=== PATIENT | female | born 1945 | race Caucasian/White ===

== ENCOUNTER 2017-09-24 20:09 | Emergency (ER) | payer OTHER, MEDICARE, SELFPAY ==
[2017-09-24 20:46] VITALS: BP 175/101; PULSE 116; RESP 16; TEMP 36.8; O2SAT 97; BMI 24.3
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
--- NOTE | 2017-09-24 20:56 | XR_ITS ---
XR ribs RT min 3V w CXR1V HISTORY: Right lower rib pain ITS.REASON: pain ORDERING PHYSICIAN: Rodercik Wiley MD PATIENT AGE: 72 years COMPARISON: None FINDINGS: A frontal view of the chest shows no acute finding. There is a nodular opacity overlying the right lung base at 5 mm and consistent with a granuloma. Granuloma present in the left apex Multiple views of the right ribs were obtained. No fracture or dislocation. No lytic or blastic change. Moderate upper lumbar scoliosis convex left IMPRESSION: Negative RIBS. If pain persists, consider follow-up exam in 7-[address] with 3-D reformats.
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
[2017-09-24 23:30] VITALS: BP 163/91; PULSE 101; RESP 16; TEMP 37.2; O2SAT 97
== END 2017-09-24 23:33 | disposition home or self-care (01) ==
PROVIDERS: Emergency Provider Emergency Medicine; Family Provider Internal Medicine; PCP Internal Medicine
DX: S20.211A Contusion of right front wall of thorax, initial encounter (principal); V58.1XXA Passenger in pick-up truck or van injured in noncollision transport accident in nontraffic accident, initial encounter; Y92.414 Local residential or business street as the place of occurrence of the external cause; I25.10 Atherosclerotic heart disease of native coronary artery without angina pectoris; E11.9 Type 2 diabetes mellitus without complications
CPT/HCPCS: 71101; 74176; 99281

== ENCOUNTER → 2017-10-20 15:48 | Outpatient (CLI) | payer MEDICARE, SELFPAY | PROVIDERS: PCP Internal Medicine; Visit Provider Internal Medicine | DX: E11.42 Type 2 diabetes mellitus with diabetic polyneuropathy (principal); I10 Essential (primary) hypertension | CPT/HCPCS: 93005 ==

== ENCOUNTER → 2017-11-08 06:42 | Outpatient (CLI) | payer MEDICARE, SELFPAY ==
--- NOTE | 2017-11-08 06:44 | NM_ITS ---
History and Indications: Coronary artery disease, hypertension, diabetes, hyperlipidemia and family history. Procedure: Patient exercised Earnest protocol 5 mins and 45 seconds, resting heart rate was 85 bpm resting blood pressure of 168/70, with exercise maximum heart rate achieved was 1 58 bpm which is equal to 85% of the maximum predicted heart rate and a blood pressure was 200/80. Test was started due to shortness of breath, patient denied any complained of chest pain. The patient has adequate exercise capacity achieved 7mets of workload on treadmill, the blood pressure response to exercise was adequate. Electrocardiogram: Resting electrocardiogram showed sinus rhythm, with exercise there is [address] segment depression noted from the baseline EKG. The EKG portion of the exercise Myoview is positive for ischemia. Cardiac stress and resting SPECT images: Cardiac stress and rest SPECT images were obtained using technetium 99 Myoview 10.3 mCi at rest and 31.9 mCi at stress, gated SPECT further analysis of segmental wall motion and calculation of the ejection fraction also done. Cardiac stress and rest images show decreased tracer activity in the anterolateral wall which improves on the resting images is suggestive of reversible ischemia, computer derived ejection fraction is over 65% with mild anterolateral wall hypokinesis. Right ventricle is normal size and contractility. Conclusion: 1. The EKG portion of the exercise Myoview is positive for ischemia, patient has adequate exercise capacity achieved 7mets of workload on treadmill, the blood pressure response to exercise was adequate, there was no exercise-induced chest discomfort, test was started shortness of breath. 2. Scintigraphic evidence of reversible ischemia involving the anterolateral wall, either derived ejection fraction is over 65% with segmental wall motion abnormality described above, right ventricle is normal size and contractility. 3. Abnormal exercise Myoview study.
--- NOTE | 2017-11-08 07:51 | HMH.ITSHM ---
PRAVASTATIN METFORMIN LISINOPRIL AMLODIPINE GLIMEPIRIDE
--- NOTE | 2017-11-08 08:34 | CA_ITS ---
PROCEDURE: 2-D M-mode and color Doppler study INDICATIONS FOR THE TEST: Chest pain COPD Heart Murmur Tobacco Smoking Palpitations Fatigue Syncope Edema Hypertension+Diabetes Mellitus+ Rheumatic Fever SOB JOSÉ Obesity Hyperlipidemia Family History HD Additional History PATIENT INFORMATION HEIGHT: 62 WEIGHT:130 GENDER: Female B/P:163/69 2-D/M-MODE INTERPRETATION: 2-D MEASUREMENTS OBSERVED VALUES IN CMS Right Ventricular Dimension (RVDd) 2.1 Interventricular Septum (Thickness)(IVsd) 1.4 Left Ventricular Internal Dimensions(LVIDd) 3.5 Left Ventricular Posterior Wall (Thickness)(LVPWd) 1.3 Aortic Root 2.9 Aortic Cusp Separation 1.8 Left Atrial Dimensions (LAD) 3.7 2D 1. Left atrium is mildly enlarged, left ventricle is normal size, there is mild concentric left ventricular hypertrophy, visually estimated ejection fraction 55% with no obvious regional wall motion abnormality. 2. The right atrium is mildly enlarged, right ventricle is normal size and contractility. 3. The aortic valve is minimally thickened and fibrosed. 4. The mitral and tricuspid valve leaflets are minimally thickened. 5. The pulmonic valve is poorly visualized. 6. No significant pericardial effusion noted. DOPPLER INTERROGATION: Doppler interrogation of the aortic, mitral and tricuspid valvular presence of mild mitral and tricuspid regurgitation, tricuspid and jet velocity insufficient for acquisition of the right ventricular systolic pressure, grade 1 diastolic dysfunction seen with tissue Doppler evidence of raised left atrial pressure. CONCLUSION: 1. Mild biatrial enlargement. Normal left ventricular size, mild concentric left ventricular hypertrophy, visually estimated ejection fraction 55% no obvious regional wall motion abnormality. Grade 1 diastolic dysfunction seen with tissue Doppler evidence of raised left atrial pressure. 2. Mild mitral and tricuspid regurgitation 3. No significant pericardial effusion noted.
== END ==
PROVIDERS: Family Provider Internal Medicine; PCP Internal Medicine; Visit Provider Internal Medicine
DX: I25.10 Atherosclerotic heart disease of native coronary artery without angina pectoris (principal)
CPT/HCPCS: 78452; 93017; 93306; A9502

== ENCOUNTER 2018-01-02 09:41 | Outpatient (RCR) | payer MEDICARE, SELFPAY | END 2018-03-20 09:35 | disposition home or self-care (01) | LOC: PT 09:41 | PROVIDERS: Visit Provider Thoracic Surgery (Cardiothoracic Vascular Surgery) | DX: I25.810 Atherosclerosis of coronary artery bypass graft(s) without angina pectoris (principal) | CPT/HCPCS: 93798 ==

== ENCOUNTER → 2018-05-07 09:46 | Outpatient (CLI) | payer MEDICARE, SELFPAY ==
--- NOTE | 2018-05-07 09:54 | XR_ITS ---
EXAM: XR cervical spine 5V HISTORY: ITS.REASON: RT NECK PAIN RADIATING TO RT SHOULDER ORDERING PHYSICIAN: Jhonatan Wolfe PATIENT AGE: 72 years COMPARISON: None FINDINGS: There is moderate degenerative disc disease at C4-C5 and C5-C6 with small endplate osteophytes. There is 3 mm anterolisthesis of C3 on C4. Foraminal narrowing is present on the right at the C4-C5 and C5-C6. Facet hypertrophic changes are noted from C3 to C6. Carotid artery calcifications are also noted. No fracture or dislocation. No lytic or blastic change. IMPRESSION: 1. Degenerative disc disease C4-C5 and C5-C6 with foraminal narrowing on the right at these levels with mild anterolisthesis of C3 of 3 mm 2. Carotid artery disease
== END ==
PROVIDERS: PCP Internal Medicine; Visit Provider Internal Medicine
DX: M54.2 Cervicalgia (principal); M25.511 Pain in right shoulder
CPT/HCPCS: 72050

== ENCOUNTER 2019-09-14 13:00 | Observation (INO) ==
--- NOTE | 2019-09-14 13:13 | Emergency Department Note ---
ED Disposition Clinical Impression: Foot pain, right Multiple closed fractures of right foot Qualifiers: Encounter type: initial encounter Qualified Code(s): S92.901A - Unspecified fracture of right foot, initial encounter for closed fracture Ankle pain, right Qualifiers: Chronicity: acute Qualified Code(s): M25.571 - Pain in right ankle and joints of right foot Disposition: Admitted as Observation Condition on Discharge: Fair (Stable) Referrals: Jhonatan Wolfe [Primary Care Provider] - Opal Craig MD [Physician] - Jus Jean MD [Staff Physician] - Time of Disposition: 13:23 - Critical Care Critical Care Time: No Attestation: On , the high probability of a clinically significant, sudden or life threatening deterioration of the following system(s) required my full and direct attention, intervention and personal management. The time I documented below is in addition to time spent performing reported procedures but includes the following listed in this critical care notation. Medical Decision Making - Medical Records Medical records reviewed: Yes: I reviewed the patient's medical records. - Joo Inquiry Pt receiving controlled substance: No Joo was queried for this patient: No Vital Signs: 09/14/19 13:01 Pulse Rate [Radial] 89 Respiratory Rate 18 Blood Pressure [Right Arm] 198/81 H Blood Pressure Mean [Right Arm] 120 Blood Pressure Source [Right Arm] Automatic Cuff Blood Pressure Position [Right Arm] Sitting 02 Sat by Pulse Oximetry 94 L Oxygen Delivery Method Room Air Orders (Tests/Meds): ORDERS Category Date Time Status CT foot RT wo con Stat Cat Scan 09/14/19 13:13 Ordered Complete Blood Count Auto Diff Stat Lab 09/14/19 13:30 Received Comprehensive Metabolic Panel Stat Lab 09/14/19 13:30 Received Medical Decision Narrative: 13:17 evaluated this patient. Case also discussed with orthopedist who is here in the ER seeing the patient at this time. CT scan of the right foot ordered and pending. 13:20 Dr. Craig evaluated the patient and she is going to be taking her to the operating room. Patient and are aware. I have also had Dr. Jean paged to his taking call for Dr. Wolfe regarding admission of this patient. Extremity Problem HPI - General Stated complaint: [id number] right foot pain Time Seen by Provider: 09/14/19 13:07 Mode of Arrival: Wheelchair Source of Information: Patient, Spouse Limitations: No Limitations - History of Present Illness HPI Narrative: Patient is here in the emergency room for evaluation request of orthopedist Dr. Craig. Patient was here at the hospital yesterday and was walking down some stairs. She missed the last step and fell injuring her right foot. Patient was subsequently cared for in the [facility]. Patient was put into a walking boot and discharged. She was scheduled to follow-up with healthcare science specialist Dr. Lockhart on Monday. Orthopedics reviewed her x-ray and contacted the patient this morning and of asked her to present here to the ER for CT the foot and consultation regarding possible surgery today. Patient has no other complaints other than right foot pain. - Related Data Home Medications Medication Instructions Recorded Confirmed Glimepiride 4 mg PO BID 09/24/17 08/06/19 aspirin 81 mg tablet,delayed 81 mg PO DAILY tab 01/30/18 08/06/19 release atorvastatin 80 mg tablet 80 mg PO DAILY tab 01/30/18 08/06/19 insulin glargine 100 unit/mL (3 20 unit SQ HS ml 08/07/18 08/06/19 mL) subcutaneous pen metoprolol tartrate 25 mg tablet 25 mg PO BID 08/07/18 08/06/19 Allergies Allergy/AdvReac Type Severity Reaction Status Date / Time No Known Allergies Allergy Verified 08/06/19 09:50 [facility] History - Hepatitis A Screen Drug use history?: No Attestation statement:: This patient has been screened for Hepatitis A risk factors. I have reviewed the patient's past medical history: Yes Medical History: Reports:: Diabetes Mellitus Type 2, Hyperlipidemia, Hypertension Denies:: Cancer, Diabetes Mellitus Type 1, Internal Pacemaker, MRSA, Seizures Other Surgeries: Yes: CABG (11/2017), Cardiac Surgery, Hysterectomy-Partial. No: Pacemaker Amputation: No Fractures: Yes (left foot) - Social History Smoking Status: Never smoker Alcohol Intake: never Alcohol Intake Frequency:: holidays/special occasions only Substance Use Type: denies use Occupational Status: retired Housing: house Household Members: spouse Family Hx:: Cancer, Coronary Artery Disease, Heart Attack Comment: Father- of MS at age 64. Brother- of MS at age 64 ROS Obtained: Yes All systems reviewed & no additional complaints - Constitutional Constitutional: Reports system reviewed and no additional complaints, except as docu - Eyes Eyes: Reports system reviewed and no additional complaints, except as docu - ENT Ears, Nose, Mouth, and Throat: Reports system reviewed and no additional complaints, except as docu - Cardiovascular Cardiovascular: Reports system reviewed and no additional complaints, except as docu - Respiratory Respiratory: Yes system reviewed and no additional complaints, except as docu - Gastrointestinal Gastrointestingal: Reports: system reviewed and no additional complaints, except as docu - Genitourinary Female Genitourinary: Reports system reviewed and no additional complaints, except as docu - Musculoskeletal Musculoskeletal: Reports system reviewed and no additional complaints, except as docu, Reports as per HPI, Reports other (Right foot pain and swelling post injury yesterday) - Integumentary/Breasts Skin/Breast: Reports system reviewed and no additional complaints, except as docu, Reports as per HPI, Reports other (Bruising and swelling to the right foot and ankle.) - Neurologic Neurologic: Reports system reviewed and no additional complaints, except as docu - Endocrine Endocrine: Reports system reviewed and no additional complaints, except as docu - Hematologic/Lymphatic Henatologic/Lymphatic: Reports system reviewed and no additional complaints, except as docu - Allergic/Immunologic Allergic/Immunologic: Reports system reviewed and no additional complaints, except as docu Physical Exam - General General appearance: alert, in no apparent distress - Head Head exam: atraumatic, normocephalic, normal inspection - Eye Eye exam: Present: normal appearance, PERRL, EOMI - ENT ENT exam: Present: mucous membranes moist - Neck Neck exam: Present: trachea midline - Chest Chest inspection: Present: normal inspection, symmetric chest wall rise - Respiratory Respiratory exam: Present: normal lung sounds bilaterally. Absent: respiratory distress - Cardiovascular Cardiovascular exam: Present: regular rate, normal heart sounds - Abdominal Exam Abdominal exam: Present: soft, normal bowel sounds. Absent: distention, tenderness, guarding, rebound - Extremities Exam Extremities exam: Present: other (Patient is noted to have a moderate swelling to the right ankle and foot with diffuse ecchymosis to the right foot dorsally. Patient has noted the pain on palpation of the distal aspect of the bilateral malleolar line. She also has pain over the proximal dorsal aspect of her foot along her navicular and cuneiform areas. She also has pain on palpation of the posterior heel calcaneus area. No sensation loss noted at right foot or digits. +1 right dorsalis pedis pulse.) - Back Exam Back exam: Present: normal inspection - Neurological Exam Neurological exam: Present: alert, oriented X3, CN II-XII intact - Psychiatric Psychiatric exam: Present: normal affect, normal mood - Skin Skin exam: Present: warm, dry, other ((+) blistering to posterior right heel)
[2019-09-14 13:41] LABS: Basophils % 0.3 % (0.1-2.0); Eosinophils # 0.1 K/mm3 (0.0-0.4); Hematocrit 42.9 % (37.0-47.0); Hemoglobin 14.5 g/dL (12.2-16.2); Lymphocytes % 16.5 % (10-50); Mean Corpuscular HGB Conc 33.9 g/dL (31.8-35.4); Mean Corpuscular Volume 86.5 fl (81-99); Mean Platelet Volume 7.9 fl (7.4-10.4); Monocytes # 0.6 K/mm3 (0.1-1.0); Monocytes % 4.8 % (1.7-9.3); Neutrophils # 9.2 K/mm3 (1.8-7.8); Neutrophils % 77.4 % (37.0-80.0); Platelet Count 224 K/mm3 (142-424); Red Blood Count 4.96 M/mm3 (4.20-5.40); Red Cell Distribution Width 14.4 % (11.5-17.5); White Blood Count 11.9 K/mm3 (4.8-10.8)
[2019-09-14 13:56] LABS: Albumin Level 4.1 gm/dL (3.4-5.0); Albumin/Globulin Ratio 1.2 (1.1-1.8); Anion Gap 18.8 mEq/L (5-15); Bilirubin,Total 0.8 mg/dL (0.2-1.0); Calcium 9.2 mg/dL (8.5-10.1); Globulin 3.4 gm/dl (1.3-3.2); Total Protein,Serum 7.5 gm/dL (6.4-8.2)
[2019-09-14 14:07] LABS: INR 1.01 (0.9-1.1); Prothrombin Time 10.5 seconds (9.4-11.8)
--- NOTE | 2019-09-14 14:27 | Consult Report ---
*Admission Date: 09/14/19 *Reason for consult:: R calcaneus fx *History of present illness: 74yo F with R calcaneus fracture. She was leaving [facility] yesterday and missed a step; she fell and injured the R ankle. She was seen in the [facility] where XR were performed, showing a comminuted, displaced calcaneus fracture. Neither orthopedic or podiatry were called. She was placed into a CAM boot, discharged home and given instructions to follow-up with Dr. Noriega. The patient called Dr. Noriega's office, and the office staff contacted Dr. Noriega, who received the message this morning. After review of the XR, Dr. Noriega spoke with me regarding concern this could turn into an open fracture. The proximal fracture fragment was displaced with very little soft tissue covering it; the swelling and internal pressure from the fracture fragment can often lead to rapid skin necrosis and convert the injury to an open fracture. This is typically treated surgically in an urgent fashion, so I called the patient at home and asked her to return to the ER today for evaluation. She reports discomfort in the heel in the boot, so she has been removing this at home to elevate the foot. She denies numbness in the foot. History is significant for HTN, HL, DM, CAD s/p CABG. Denies h/o Afib. She is unsure of the exact value, but believes her last A1C was around 8; this is down from >14 last year. No anticoagulant use. She ate toast around 8am this morning and diet soda around 11:15am. Review of Systems - Review of Systems Review of systems:: pertinent systems reviewed and negative unless documented below [facility] History I have reviewed the patient's past medical history: Yes Medical History: Reports:: Diabetes Mellitus Type 2, Hyperlipidemia, Hypertension Denies:: Cancer, Diabetes Mellitus Type 1, Internal Pacemaker, MRSA, Seizures *Have you ever received a pneumonia vaccine?: Yes *Have you received a flu vaccine this season?: Yes Other Surgeries: Yes: CABG (11/2017), Cardiac Surgery, Hysterectomy-Partial. No: Pacemaker Amputation: No Fractures: Yes (left foot) - *Social History Educational Level: Completed High School Smoking Status: Never smoker Alcohol Intake: never Alcohol Intake Frequency:: holidays/special occasions only Substance Use Type: denies use *Occupational Status:: retired Housing: house Household Members: spouse *Travel in the last 8 weeks: None Family Hx:: Cancer, Coronary Artery Disease, Heart Attack Meds Home Medications Medication Instructions Recorded Confirmed Type Glimepiride 4 mg PO BID 09/24/17 08/06/19 History aspirin 81 mg tablet,delayed 81 mg PO DAILY tab 01/30/18 08/06/19 History release atorvastatin 80 mg tablet 80 mg PO DAILY tab 01/30/18 08/06/19 History insulin glargine 100 unit/mL (3 20 unit SQ HS ml 08/07/18 08/06/19 History mL) subcutaneous pen metoprolol tartrate 25 mg tablet 25 mg PO BID 08/07/18 08/06/19 History Allergies Allergy/AdvReac Type Severity Reaction Status Date / Time No Known Allergies Allergy Verified 08/06/19 09:50 Exam Vital signs and Labs for Last 24 Hours: Pulse Resp BP Pulse Ox 89 18 198/81 H 94 L 09/14/19 13:01 09/14/19 13:01 09/14/19 13:01 09/14/19 13:01 Laboratory Results - last 24 hr 09/14/19 13:30: WBC 11.9 H, RBC 4.96, Hgb 14.5, Hct 42.9, MCV 86.5, MCH 29.3, MCHC 33.9, RDW 14.4, Plt Count 224, MPV 7.9, Neut % (Auto) 77.4, Lymph % (Auto) 16.5, [place] % (Auto) 4.8, Eos % (Auto) 1.0, Baso % (Auto) 0.3, Neut # (Auto) 9.2 H, Lymph # (Auto) 2.0, [place] # (Auto) 0.6, Eos # (Auto) 0.1, Baso # (Auto) 0.0 09/14/19 13:30: Sodium 139, Potassium 3.8, Chloride 101, Carbon Dioxide 23, Anion Gap 18.8 H, BUN 16, Creatinine 1.13 H, Estimated Creat Clear 46, Estimated GFR 47 L, Est GFR ( Amer) 57 L, Glucose 168 H, Calcium 9.2, Total Bilirubin 0.8, AST 17, ALT 27, Alkaline Phosphatase 78, Total Protein 7.5, Albumin 4.1, Globulin 3.4 H, Albumin/Globulin Ratio 1.2 09/14/19 13:30: PT 10.5, INR 1.01 I & O for Last 24 hours: Intake & Output 09/12/19 09/13/19 09/14/19 09/15/19 11:59 11:59 11:59 11:59 Weight 143 lb - Constitutional no acute distress - *Routine HEENT Exam Head: Present: normocephalic Eye: Present: EOMI ENT: Present: mucous membranes moist - *Routine Respiratory Exam Absent: accessory muscle use, respiratory distress, wheezes - *Routine Extremities Exam Comments: R foot with moderate/severe soft tissue swelling and diffuse ecchymosis around all aspect of the foot/heel increased ecchymosis with small blister over posterior R heel at fracture site R foot/heel diffusely tender to touch SILT distally RLE in all distributions palpable pedal pulses RLE, though faint through swelling no open wounds or exposed bone R wheel truing machine tender over R midfoot wiggles toes, EHL intact RLE, DF/PF difficult due to pain R calf soft, non-tender - *Routine Skin Exam Present: intact, ecchymosis - *Routine Neurological Exam Present: alert, oriented X3, moving all extremities, normal tone, hearing grossly intact, normal speech. Absent: sensory deficit, motor deficit, altered mental status Results - Labs Result Diagrams: 09/14/19 13:30 09/14/19 13:30 Labs: Abnormal lab results 09/14/19 09/14/19 Range/Units 13:30 13:30 WBC 11.9 H (4.8-10.8) K/mm3 Neut # (Auto) 9.2 H (1.8-7.8) K/mm3 Anion Gap 18.8 H (5-15) mEq/L Creatinine 1.13 H (0.55-1.02) mg/dL Estimated GFR 47 L (>60) ml/min Est GFR ( Amer) 57 L (>60) ML/MIN Glucose 168 H (74-106) mg/dL Globulin 3.4 H (1.3-3.2) gm/dl H & H 09/14/19 Range/Units 13:30 Hgb 14.5 (12.2-16.2) g/dL Hct 42.9 (37.0-47.0) % Coagulation 09/14/19 Range/Units 13:30 INR 1.01 (0.9-1.1) All other labs normal. - Diagnostic results Ankle/Foot x-ray: image reviewed (comminuted, displaced fracture of R calcaneus with proximal fragment possibly tenting skin; possible 1st MT base, navicular, cuboid fractures as well ) Assessment and Plan (1) Diabetes Current visit: Yes Status: Acute Category: Medical Code(s): E11.9 - Type 2 diabetes mellitus without complications (2) Multiple closed fractures of right foot Current visit: Yes Status: Acute Qualifiers: Encounter type: initial encounter Qualified Code(s): S92.901A - Unspecified fracture of right foot, initial encounter for closed fracture Category: Medical Code(s): S92.901A - Unspecified fracture of right foot, initial encounter for closed fracture (3) Right calcaneal fracture Current visit: No Status: Acute Qualifiers: Encounter type: initial encounter Calcaneus location: unspecified portion of calcaneus Fracture type: closed Fracture alignment: displaced Qualified Code(s): S92.001A - Unspecified fracture of right calcaneus, initial encounter for closed fracture Category: Medical Code(s): S92.001A - Unspecified fracture of right calcaneus, initial encounter for closed fracture (4) CAD (coronary artery disease) Current visit: No Status: Chronic Qualifiers: Coronary Disease-Associated Artery/Lesion type: bypass graft [place] vs. transplanted heart: nond[place] heart Associated angina: without angina Qualified Code(s): I25.810 - Atherosclerosis of coronary artery bypass graft(s) without angina pectoris Category: Medical Code(s): I25.10 - Atherosclerotic heart disease of nond[place] coronary artery without angina pectoris (5) S/P CABG (coronary artery bypass graft) Current visit: No Status: Chronic Category: Surgical Code(s): Z95.1 - Presence of aortocoronary bypass graft - Assessment and plan all Dx Assessment and Plan for all problems:: 74yo F with comminuted, displaced fracture of R calcaneus, impending open fracture; also with suspected fractures of 1st MT, navicular and cuboid -- to OR today for closed reduction, possible percutaneous pinning + external fixator application R calcaneus fracture -- NPO -- stat labs, EKG -- NWB RLE; well-padded splint applied -- I discussed risks of the procedure with the patient, as well as the expected post-operative course and plan for definitive fixation; the patient vocalized understanding and provided informed consent for the procedure
--- NOTE | 2019-09-14 16:48 | Progress Note ---
[facility] Anesthesia Checklist - Patient Identification Patient Identification: Arm Band, Verbal (Name & ) - Structural Data Admitted From: Emergency Dept Planned Operative Procedure/s: right calcaneus closed reduction, external fixator, perc pinning Consent for Planned Operative Procedure(s) Verified: Yes Verified Documents: Surgical Consent, History and Physical - NPO Status Verified Time NPO: 08:00 (0800 Solids, 1130 soda pop) - Chart Verification Results Verified: CBC, BMP, PT, PTT, INR, ECG - Additional verifications Anesthesia Reactions: No - Airway Assessment C-Spine Mobility Assessed: Yes TMJ Mobility Assessed: Yes Dentition: Edentulous (dentures removed) - Neurological Assessment Level of Consciousness: Awake, Alert, Appropriate, Follows Commands Hx Seizures: No Numbness or tingling in extremities: Yes - Anesthesia Plan Anesthesia Risk discussed: Yes Anesthesia Plan: Verified ASA Class: III (emergent) Anesthesia Type: MAC w/Block [facility] History I have reviewed the patient's past medical history: Yes Medical History: Reports:: Arrhythmia, Atrial Fibrillation (Newly diagnosed), Coronary Artery Disease, Diabetes Mellitus Type 2 (uncontrolled), Hyperlipidemia, Hypertension Denies:: Cancer, Diabetes Mellitus Type 1, Internal Pacemaker, MRSA, Seizures *Have you ever received a pneumonia vaccine?: Yes *Have you received a flu vaccine this season?: Yes Anesthesia experience/problems:: no prior complications Other Surgeries: Yes: CABG (11/2017, 3 vessel bypass), Cardiac Surgery, Hysterectomy-Partial. No: Pacemaker Amputation: No Fractures: Yes (left foot) - *Social History Educational Level: Completed High School Smoking Status: Never smoker Alcohol Intake: never Alcohol Intake Frequency:: holidays/special occasions only Substance Use Type: denies use *Occupational Status:: retired Housing: house Household Members: spouse *Travel in the last 8 weeks: None Family Hx:: Cancer, Coronary Artery Disease, Heart Attack
--- NOTE | 2019-09-14 17:51 | Progress Note ---
[facility] Anesthesia Record Part I Intake, IV Amount: 400 Estimated blood loss (mL): 5 Urine output (mL): 0 (NM) Blood Products used (#): none Blood Pressure: 118/54 SaO2: 92 Pulse Rate: 82 Respiratory Rate: 16 Temperature: 97.8 F Patient is:: Drowsy, Nasal O2, Stable Stable to PACU at:: 17:45
--- NOTE | 2019-09-14 18:25 | Operative Note ---
Date of procedure: 09/14/19 Pre-op Diagnosis:: right calcaneus fracture, impending open; severe soft tissue swelling Post-op Diagnosis:: same Procedure performed:: 1) closed reduction, percutaneous pinning right calcaneus fracture 2) application of external fixator RLE Surgeon:: MD Eneida Lewis DPM Marketing Development Manager(s):: Sara Wilburn YARN WASHER:: Mj Mathis Anesthesia: MAC, regional Estimated blood loss (mL): 5 Clinical Note:: 74yo F with R calcaneus fracture. She was leaving [facility] yesterday and missed a step; she fell and injured the R ankle. She was seen in the [facility] where XR were performed, showing a comminuted, displaced calcaneus fracture. Neither orthopedic or podiatry were called. She was placed into a CAM boot, discharged home and given instructions to follow-up with Dr. Noriega. The patient called Dr. Noriega's office, and the office staff contacted Dr. Noriega, who received the message this morning. After review of the XR, Dr. Noriega spoke with me regarding concern this could turn into an open fracture. The proximal fracture fragment was displaced with very little soft tissue covering it; the swelling and internal pressure from the fracture fragment can often lead to rapid skin necrosis and convert the injury to an open fracture. This is typically treated surgically in an urgent fashion, so I called the patient at home and asked her to return to the ER today for evaluation. She reports discomfort in the heel in the boot, so she has been removing this at home to elevate the foot. She denies numbness in the foot. History is significant for HTN, HL, DM, CAD s/p CABG. Denies h/o Afib. She is unsure of the exact value, but believes her last A1C was around 8; this is down from >14 last year. No anticoagulant use. She ate toast around 8am this morning and diet soda around 11:15am. I discussed the significance of this injury with the patient and need for urgent reduction & stabilization; my plan was for closed reduction of the calcaneus, possible percutaneous pinning with external fixator application. I discussed risks of the procedure with the patient, as well as the expected post- operative course and plan for definitive fixation; the patient vocalized understanding and provided informed consent for the procedure Operative findings:: tongue-type calcaneus fracture with intra-articular extension and commminution; osteopenia severe soft tissue swelling with ecchymosis, blistering over posterior heel - impending open fracture [place] Barnes 2 ex-fix system was used, with the following components: pins: tibia = 5 x 180mm apex pins (2) calcaneus = 5 x 250mm transfix pin (1) bars: 8 x 500mm (2) from tibia to calcaneus Operative note:: The patient was identified in preoperative holding and the right leg signed by myself. I reviewed the consent with the patient and her family and answered all questions. Regional nerve block was administered by anesthesia. She was then taken to the operating room and placed supine on the OR table. 1 g of Ancef were infused intravenously and IV sedation given. Once the patient was sedated, the splint was removed from her right ankle and the right leg prepped and draped in the usual sterile fashion from the upper thigh to the toes. Timeout was performed, identifying the correct patient, correct procedure, and correct site. The procedure was begun by using the C arm to identify the fracture site at the right calcaneus. Tongue type fracture with intraarticular extension and comminution was confirmed. A Arabella Barnes 2 external fixator system was used for this case. The first pin placed was a calcaneus pin, which was a 5 x 250 mm transfix pin, which was centrally threaded. This was held over the skin over the lateral calcaneus until the desired starting point was found, at which time the pin was used to andino the skin and placed under power through the center of the calcaneus. This was passed through the distal (i.e. inferior) fracture fragment. This pin was used to control the distal fragment as closed reduction was performed. A 0.062-in K-wire was placed percutaneously into the proximal fragment, and used to joystick the fragment; this was insufficient to adequately reduce the fracture. A pointed reduction forcep was used percutaneously with one jon on the tuberosity and the other on the inferior calcaneus; this was used to reduce the fracture, thereby relieving the pressure on the skin of the posterior heel. With the fracture held by the clamp, the k-wire was advanced into the distal fragment, securing the reduction. For added stability to hold the reduction, a second k-wire was passed in a similar fashion, pinning the fracture fragments provisionally. The reduction forceps were removed and the fracture held nicely. Next 2 pins were placed in the proximal tibia, each measuring 5 x 180 mm. These were distally threaded apex pins and were placed around 3 to 4 cm apart in the proximal tibia, well distal to the tubercle and far below the capsule so as not to be placed intra-articularly. These were placed under power, also under direct visualization with C arm, and were started just medial to the tibial crest over the anterior tibia. They were placed bicortically. Once both tibial pins had been placed, bars were placed on the frame using pin-to-bar and bar-to-bar clamps. Radiolucent bars were placed, both measuring 8 x 500 mm from the tibia to the calcaneus both medially and laterally. No further reduction of the fracture was necessary so all clamps were tightened with a wrench and final x-rays taken. The pin sites were all dressed with sterile Xeroform, 4 x 4's and the entire construct wrapped with Kerlix, webril and Ian wraps. The patient was then awoken and transferred to her cart, where she was taken to PACU in good condition. No tourniquet was used during this case and blood loss was minimal, less than 5 cc. The patient tolerated this procedure well with no immediate perioperative complications. Tourniquet time (min): 0 Condition: stable Disposition: PACU Specimens:: none Complications:: none
--- NOTE | 2019-09-14 18:54 | History & Physical Report ---
*Admission Date: 09/14/19 *Chief complaint: Fall on 09/13/2019 with calcaneus fracture *History of present illness: Patient suffered a fall on 09/13/2019 after missing a step going out of the pharmacy on the ground floor of this building. She was taken to the urgent treatment center where x-rays demonstrated fracture and she was placed in a walking boot. However once podiatry services had reviewed her fracture they determined this was at high risk for conversion to an open fracture and orthopedics and podiatry were able to get a hold of the patient and bring her back into the ER today where she was admitted for operative repair of the fracture. Please see orthopedic notes for details. On presentation to the ER patient was noted to be in rate controlled atrial fibrillation with normal blood pressure. She cannot recall any heart irregularity, denies palpitations, chest pain, syncope or recent edema or dyspnea. There is no record of patient ever having atrial fibrillation. Most recent EKG in July of this year showed normal sinus rhythm. Patient has a history of coronary disease, status post three-vessel CABG at [facility] in the early part of 2017. Has been followed with cardiology services at [facility] since that time. Has a history of diabetes, has been on insulin now for about a year and a half. Has been on a variety of oral medications through her doctor in [facility] with samples being provided apparently because of cost reasons. She is currently on glimepiride, and Lantus insulin. She is intolerant to metformin because of GI effects. She recalls being on Januvia in the past but denies ever being on any of the SGLT2 inhibitors. [facility] History I have reviewed the patient's past medical history: Yes Medical History: Reports:: Arrhythmia, Atrial Fibrillation (Newly diagnosed this admission), Coronary Artery Disease, Diabetes Mellitus Type 2 (uncontrolled), Hyperlipidemia, Hypertension Denies:: Cancer, Diabetes Mellitus Type 1, Internal Pacemaker, MRSA, Seizures *Have you ever received a pneumonia vaccine?: Yes *Have you received a flu vaccine this season?: Yes Anesthesia experience/problems:: no prior complications Other Surgeries: Yes: CABG (11/2017, 3 vessel bypass), Cardiac Surgery, Hysterectomy-Partial. No: Pacemaker Amputation: No Fractures: Yes (left foot) - *Social History Educational Level: Completed High School Smoking Status: Never smoker Alcohol Intake: never Alcohol Intake Frequency:: holidays/special occasions only Substance Use Type: denies use *Occupational Status:: retired Housing: house Household Members: spouse *Travel in the last 8 weeks: None Family Hx:: Cancer, Coronary Artery Disease, Heart Attack Review of Systems - Review of Systems Review of systems:: pertinent systems reviewed and negative unless documented below - Constitutional Denies anorexia, Denies excessive sweating, Denies fatigue, Denies lack of energy - Eyes Denies blind spots, Denies discharge, Denies dry eyes - ENT Denies abnormal hearing, Denies poor balance, Denies dizziness - *Cardiovascular Denies chest pain, Denies chest pain with activity, Denies leg pain with activity, Denies excessive sweating, Denies shortness of breath, Denies irregular heart rhythm - *Respiratory Denies change in phlegm color, Denies shortness of breath, Denies shortness of breath with activity - *Gastrointestinal Denies abdominal pain, Denies change in stools, Denies coffee ground vomit, Denies constipation - *Genitourinary Denies abnormal vaginal bleeding - *Musculoskeletal Reports joint pain, Denies abnormal walking - Integumentary/Breasts Denies acne, Denies change in skin color Meds Home Medications Medication Instructions Recorded Confirmed Type Glimepiride 4 mg PO BID 09/24/17 09/14/19 History aspirin 81 mg tablet,delayed 81 mg PO DAILY tab 01/30/18 09/14/19 History release atorvastatin 80 mg tablet 80 mg PO DAILY tab 01/30/18 09/14/19 History insulin glargine 100 unit/mL (3 20 unit SQ HS ml 08/07/18 09/14/19 History mL) subcutaneous pen metoprolol tartrate 25 mg tablet 25 mg PO BID 08/07/18 09/14/19 History Allergies Allergy/AdvReac Type Severity Reaction Status Date / Time No Known Allergies Allergy Verified 08/06/19 09:50 Exam Vital signs and Labs for Last 24 Hours: Temp Pulse Resp BP Pulse Ox 98.0 F 90 16 140/70 94 L 09/14/19 18:45 09/14/19 18:45 09/14/19 18:45 09/14/19 18:45 09/14/19 18:45 Laboratory Results - last 24 hr 09/14/19 13:30: WBC 11.9 H, RBC 4.96, Hgb 14.5, Hct 42.9, MCV 86.5, MCH 29.3, MCHC 33.9, RDW 14.4, Plt Count 224, MPV 7.9, Neut % (Auto) 77.4, Lymph % (Auto) 16.5, [place] % (Auto) 4.8, Eos % (Auto) 1.0, Baso % (Auto) 0.3, Neut # (Auto) 9.2 H, Lymph # (Auto) 2.0, [place] # (Auto) 0.6, Eos # (Auto) 0.1, Baso # (Auto) 0.0 09/14/19 13:30: Sodium 139, Potassium 3.8, Chloride 101, Carbon Dioxide 23, Anion Gap 18.8 H, BUN 16, Creatinine 1.13 H, Estimated Creat Clear 46, Estimated GFR 47 L, Est GFR ( Amer) 57 L, Glucose 168 H, Calcium 9.2, Total Bilirubin 0.8, AST 17, ALT 27, Alkaline Phosphatase 78, Total Protein 7.5, Albumin 4.1, Globulin 3.4 H, Albumin/Globulin Ratio 1.2 09/14/19 13:30: PT 10.5, INR 1.01 09/14/19 13:30: Hemoglobin A1c 8.0 H I & O for Last 24 hours: Intake & Output 09/12/19 09/13/19 09/14/19 09/15/19 11:59 11:59 11:59 11:59 Intake Total 400 / 400 Balance 400 / 400 Weight 152 lb 1 oz - Constitutional no acute distress, average body habitus - *Routine HEENT Exam Head: Present: normocephalic, atraumatic. Absent: Chavez's sign Eye: Present: EOMI, PERRL ENT: Present: mucous membranes moist, dentition normal - *Routine Neck Exam Present: supple. Absent: JVD, carotid bruit, lymphadenopathy, thyromegaly - *Routine Respiratory Exam Present: CTA bilaterally - *Routine Cardiovascular Exam Present: irregular rhythm, irregularly irregular. Absent: murmur, gallop - *Routine Abdominal Exam Present: soft, normoactive bowel sounds. Absent: tenderness - *Routine Extremities Exam Comments: Right lower extremity in splint postoperatively. Left side without clubbing or edema or cyanosis, normal pulses in the left leg and left and right upper extremity - *Routine Neurological Exam Present: alert, oriented X3, CN II-XII intact Assessment and Plan (1) Diabetes Current visit: Yes Status: Acute Category: Medical Code(s): E11.9 - Type 2 diabetes mellitus without complications Patient seemingly would benefit from an SGLT2 inhibitor given her known coronary atherosclerosis. Hold glimepiride while in the hospital. Hold nighttime insulin. Sliding scale insulin while here. Reevaluate management before discharge. No evidence of hypoglycemia causing fall. (2) Multiple closed fractures of right foot Current visit: Yes Status: Acute Qualifiers: Encounter type: initial encounter Qualified Code(s): S92.901A - Unspecified fracture of right foot, initial encounter for closed fracture Category: Medical Code(s): S92.901A - Unspecified fracture of right foot, initial encounter for closed fracture (3) Right calcaneal fracture Current visit: No Status: Acute Qualifiers: Encounter type: initial encounter Calcaneus location: unspecified portion of calcaneus Fracture type: closed Fracture alignment: displaced Category: Medical Code(s): S92.001A - Unspecified fracture of right calcaneus, initial encounter for closed fracture Management per orthopedics, status post ORIF. (4) CAD (coronary artery disease) Current visit: No Status: Chronic Qualifiers: Coronary Disease-Associated Artery/Lesion type: bypass graft [place] vs. transplanted heart: [place] heart Associated angina: without angina Qualified Code(s): I25.810 - Atherosclerosis of coronary artery bypass graft(s) without angina pectoris Category: Medical Code(s): I25.10 - Atherosclerotic heart disease of [place] coronary artery without angina pectoris Stable disease. No evidence of recurrent symptoms. (5) S/P CABG (coronary artery bypass graft) Current visit: No Status: Chronic Category: Surgical Code(s): Z95.1 - Presence of aortocoronary bypass graft (6) New onset atrial fibrillation Current visit: Yes Status: Acute Category: Medical Code(s): I48.91 - Unspecified atrial fibrillation Does not seem to be etiology of her fall. No evidence of cardiac compromise at this point. Continue beta-agbby. Begin Lovenox therapy cautiously postoperatively, will administer once tomorrow and then consider twice daily dosing and then transitioning to oral anticoagulation once surgical risk of bleeding falls. Echocardiogram before her CABG showed ejection fraction of 55% with slightly enlarged left atrium. This will be repeated on Monday.
[2019-09-15 07:01] LABS: Basophils % 0.3 % (0.1-2.0); Eosinophils # 0.1 K/mm3 (0.0-0.4); Eosinophils % 0.7 % (0.1-12.0); Hematocrit 36.2 % (37.0-47.0); Lymphocytes # 1.3 K/mm3 (0.7-4.5); Mean Corpuscular HGB Conc 32.6 g/dL (31.8-35.4); Mean Platelet Volume 7.7 fl (7.4-10.4); Monocytes # 0.4 K/mm3 (0.1-1.0); Monocytes % 5.1 % (1.7-9.3); Neutrophils # 6.6 K/mm3 (1.8-7.8); Neutrophils % 78.9 % (37.0-80.0); Platelet Count 159 K/mm3 (142-424); Red Blood Count 4.07 M/mm3 (4.20-5.40); Red Cell Distribution Width 14.6 % (11.5-17.5); White Blood Count 8.4 K/mm3 (4.8-10.8)
[2019-09-15 07:05] LABS: Hemoglobin 11.8 g/dL (12.2-16.2)
[2019-09-15 07:26] LABS: Anion Gap 12.2 mEq/L (5-15); Calcium 8.1 mg/dL (8.5-10.1); Thyroid Stimulating Hormone 0.91 uIU/ml (0.358-3.740)
--- NOTE | 2019-09-15 08:35 | Pharmacy Consult Notes ---
[facility] Pharmacy VTE Monitoring - Patient Demographics Admission date: 09/15/19 Report Date: 09/15/19 Time: 08:34 Allergies/Adverse Reactions: Patient Allergies No Known Allergies Allergy (Verified 08/06/19 09:50) Height: 1.57 m Weight: 67.84 kg Patient Problems: Current Active Problems Multiple closed fractures of right foot (Acute) Ankle pain, right (Acute) Foot pain, right (Acute) Diabetes (Acute) New onset atrial fibrillation (Acute) - VTE Risk Labs: VTE Related Lab Results Hgb 11.8 g/dL (12.2-16.2) L D 09/15/19 06:18 Hct 36.2 % (37.0-47.0) L 09/15/19 06:18 Plt Count 159 K/mm3 (142-424) D 09/15/19 06:18 PT 10.5 seconds (9.4-11.8) 09/14/19 13:30 INR 1.01 (0.9-1.1) 09/14/19 13:30 BUN 14 mg/dL (7-18) 09/15/19 06:18 Creatinine 0.86 mg/dL (0.55-1.02) D 09/15/19 06:18 Estimated Creat Clear 54 mL/min (50-200) 09/15/19 06:18 Was VTE Risk Assessment Performed: Yes VTE Score: 3 VTE Risk Level: Low Risk - Prophylaxis Types of VTE Prophylaxis: Pharmacological Pharmacologic Type: Enoxaparin (LOVENOX AT THIS TIME. PATIENT ALSO WITH AFIB.)
--- NOTE | 2019-09-15 08:43 | Progress Note ---
Internal Medicine - PN: Subj *Date: 09/15/19 *Time: 08:41 Interval history: Patient did well with her operative procedure yesterday. Has minimal pain. Pleasant, talkative, alert. No problems with chest pain or palpitations overnight. Exam Vital signs and Labs for Last 24 Hours: Temp Pulse Resp BP Pulse Ox 98.3 F 75 18 155/60 H 95 09/15/19 08:00 09/15/19 08:00 09/15/19 08:00 09/15/19 08:00 09/15/19 08:00 Laboratory Results - last 24 hr 09/14/19 13:30: WBC 11.9 H, RBC 4.96, Hgb 14.5, Hct 42.9, MCV 86.5, MCH 29.3, MCHC 33.9, RDW 14.4, Plt Count 224, MPV 7.9, Neut % (Auto) 77.4, Lymph % (Auto) 16.5, [place] % (Auto) 4.8, Eos % (Auto) 1.0, Baso % (Auto) 0.3, Neut # (Auto) 9.2 H, Lymph # (Auto) 2.0, [place] # (Auto) 0.6, Eos # (Auto) 0.1, Baso # (Auto) 0.0 09/14/19 13:30: Sodium 139, Potassium 3.8, Chloride 101, Carbon Dioxide 23, Anion Gap 18.8 H, BUN 16, Creatinine 1.13 H, Estimated Creat Clear 46, Estimated GFR 47 L, Est GFR ( Amer) 57 L, Glucose 168 H, Calcium 9.2, Total Bilirubin 0.8, AST 17, ALT 27, Alkaline Phosphatase 78, Total Protein 7.5, Albumin 4.1, Globulin 3.4 H, Albumin/Globulin Ratio 1.2 09/14/19 13:30: PT 10.5, INR 1.01 09/14/19 13:30: Hemoglobin A1c 8.0 H 09/14/19 20:36: POC Glucose 130 H 09/15/19 02:49: POC Glucose 74 09/15/19 03:20: POC Glucose 134 H 09/15/19 05:18: POC Glucose 180 H 09/15/19 06:18: Sodium 141, Potassium 4.2, Chloride 105, Carbon Dioxide 28 D, Anion Gap 12.2, BUN 14, Creatinine 0.86 D, Estimated Creat Clear 54, Estimated GFR 65, Est GFR ( Amer) 78 D, Glucose 149 H, Calcium 8.1 L D, Magnesium 1.9, TSH 0.91 09/15/19 06:18: WBC 8.4 D, RBC 4.07 L, Hgb 11.8 L D, Hct 36.2 L, MCV 89.0, MCH 29.0, MCHC 32.6, RDW 14.6, Plt Count 159 D, MPV 7.7, Neut % (Auto) 78.9, Lymph % (Auto) 15.0, [place] % (Auto) 5.1, Eos % (Auto) 0.7, Baso % (Auto) 0.3, Neut # (Auto) 6.6, Lymph # (Auto) 1.3, [place] # (Auto) 0.4, Eos # (Auto) 0.1, Baso # (Auto) 0.0 I & O for Last 24 hours: Intake & Output 09/12/19 09/13/19 09/14/19 09/15/19 11:59 11:59 11:59 11:59 Intake Total 1538 / 1538 Output Total 1300 / 1300 Balance 238 / 238 Weight 149 lb 9 oz Narrative: Heart rate in the mid 70s. Irregular. Anterior lung amaya clear. Abdomen soft. No edema or clubbing in extremities although her right lower extremity is in splint device. Neurologically intact. ENT exam clear Assessment and Plan (1) Diabetes Current visit: Yes Status: Acute Category: Medical Code(s): E11.9 - Type 2 diabetes mellitus without complications Continue current sliding scale while hospitalized (2) Multiple closed fractures of right foot Current visit: Yes Status: Acute Qualifiers: Encounter type: initial encounter Qualified Code(s): S92.901A - Unspecified fracture of right foot, initial encounter for closed fracture Category: Medical Code(s): S92.901A - Unspecified fracture of right foot, initial encounter for closed fracture (3) Right calcaneal fracture Current visit: No Status: Acute Qualifiers: Encounter type: initial encounter Calcaneus location: unspecified portion of calcaneus Fracture type: closed Fracture alignment: displaced Qualified Code(s): S92.001A - Unspecified fracture of right calcaneus, initial encounter for closed fracture Category: Medical Code(s): S92.001A - Unspecified fracture of right calcaneus, initial encounter for closed fracture Status post ORIF, current management per orthopedics and podiatry (4) CAD (coronary artery disease) Current visit: No Status: Chronic Qualifiers: Coronary Disease-Associated Artery/Lesion type: bypass graft [place] vs. transplanted heart: [place] heart Associated angina: without angina Qualified Code(s): I25.810 - Atherosclerosis of coronary artery bypass graft(s) without angina pectoris Category: Medical Code(s): I25.10 - Atherosclerotic heart disease of [place] coronary artery without angina pectoris (5) S/P CABG (coronary artery bypass graft) Current visit: No Status: Chronic Category: Surgical Code(s): Z95.1 - Presence of aortocoronary bypass graft (6) New onset atrial fibrillation Current visit: Yes Status: Acute Category: Medical Code(s): I48.91 - Unspecified atrial fibrillation Transition to treatment dose Lovenox, will need long-term anticoagulation, cardiology consult tomorrow, currently rate controlled, echocardiogram tomorrow.
--- NOTE | 2019-09-15 09:09 | Electrocardiograph Report ---
APPROVED REPORT Exam: Resting ECG HR:82 bpm ECG Measurements Heart Rate 82 AXES QRSd 76 QRS 16 QT 410 T76 QTc 479 <Conclusion> Atrial fibrillation Cannot rule out Anterior infarct, age undetermined Abnormal ECG Electronically signed by : Jus Jean, 09/15/2019 09:08:49
--- NOTE | 2019-09-15 13:02 | Progress Note ---
Subjective Date: 09/15/19 Time: 11:00 Principal diagnosis: R calcaneus fracture Interval history: The patient is feeling well today, pain in RLE not severe, controlled with medications. Glucose 74-180 overnight. AFVSS, still on 2L NC. PN: Obj Ex Vital signs: Temp Pulse Resp BP Pulse Ox 98.2 F 58 L 18 148/61 H 99 09/15/19 12:00 09/15/19 12:00 09/15/19 12:00 09/15/19 12:00 09/15/19 12:00 - Routine Extremities Exam Comments: RLE ex-fix intact, dressings c/d/i w/o strikethrough pin sites c/d/i w/o drainage wiggles toes; cannot DF/PF ankle due to ex-fix; EHL intact palpable pedal pulses RLE, skin warm and pink with BCR SILT distally RLE R calf soft, non-tender Progress Note: A&P (1) Diabetes Status: Acute Current Visit: Yes (2) Multiple closed fractures of right foot Status: Acute Current Visit: Yes (3) Right calcaneal fracture Status: Acute Current Visit: No (4) CAD (coronary artery disease) Status: Chronic Current Visit: No (5) S/P CABG (coronary artery bypass graft) Status: Chronic Current Visit: No (6) New onset atrial fibrillation Status: Acute Current Visit: Yes Assessment and Plan for All Diagnoses:: 74yo F POD 1 s/p CRPP + external fixator application R calcaneus fracture; also with fractures of multiple midfoot bones (cuboid, navicular, cuneiforms). Calcaneus fracture is comminuted, intra-articular; possible [place] IV on CT. -- NWB RLE, keep elevated as high/frequently as possible for decreased edema. Fracture is not amenable to ORIF at this time, but will be required in the near future. With the severity of the fracture and history of diabetes, she is at high risk of developing a [place] ankle/foot. I will be transferring care to Dr. Noriega for definitive fixation, as she will not only require ORIF, but may need a reconstructive ilizarov frame placed at the same time. -- will add oral antibiotic when prophy IV antibiotic completed today, to serve as prophylaxis against pin site infection given h/o DM and presence of ex-fix -- the patient will remain admitted until tomorrow to be seen by cardiology and have an echocardiogram, as new onset atrial fibrillation was diagnosed on pre-op EKG yesterday -- continue therapeutic dosage of lovenox; request that this be stopped if possible prior to her definitive surgery -- continue SCD LLE, IS 10x/hr, medical management per Dr. Jean
[2019-09-16 06:42] LABS: Basophils % 0.5 % (0.1-2.0); Eosinophils # 0.1 K/mm3 (0.0-0.4); Eosinophils % 1.9 % (0.1-12.0); Hematocrit 35.4 % (37.0-47.0); Hemoglobin 11.4 g/dL (12.2-16.2); Lymphocytes # 1.6 K/mm3 (0.7-4.5); Lymphocytes % 21.5 % (10-50); Mean Corpuscular HGB Conc 32.2 g/dL (31.8-35.4); Mean Corpuscular Volume 89.5 fl (81-99); Mean Platelet Volume 7.9 fl (7.4-10.4); Monocytes # 0.4 K/mm3 (0.1-1.0); Monocytes % 5.9 % (1.7-9.3); Neutrophils # 5.2 K/mm3 (1.8-7.8); Neutrophils % 70.2 % (37.0-80.0); Platelet Count 154 K/mm3 (142-424); Red Blood Count 3.96 M/mm3 (4.20-5.40); Red Cell Distribution Width 14.5 % (11.5-17.5); White Blood Count 7.5 K/mm3 (4.8-10.8)
[2019-09-16 08:08] LABS: Anion Gap 14.2 mEq/L (5-15)
--- NOTE | 2019-09-16 08:15 | Consult Report ---
History of Present Illness Consult date: 09/16/19 Requesting physician: Jus Jean Consult reason: atrial fibrillation Chief complaint: Right foot pain Additional Medical History:: 1. CAD A. CABG, 11/2017 2. HHD A. Echo, 11/2017, normal LVEF with conc LVH, MAC with Mild MR B. Echo, 08/2019, normal LVEF with conc LVH, MAC and mild MR. LA size <4 3. HLD 4. HTN 5. DM, type 2 History of present illness: Patient suffered a fall on 09/13/2019 after missing a step going out of the pharmacy on the ground floor of this building. She was taken to the urgent treatment center where x-rays demonstrated fracture and she was placed in a walking boot. However once podiatry services had reviewed her fracture they determined this was at high risk for conversion to an open fracture and orthopedics and podiatry were able to get a hold of the patient and bring her back into the ER today where she was admitted for operative repair of the fracture. Please see orthopedic notes for details. On presentation to the ER patient was noted to be in rate controlled atrial fibrillation with normal blood pressure. She cannot recall any heart irregularity, denies palpitations, chest pain, syncope or recent edema or dyspnea. There is no record of patient ever having atrial fibrillation. Most recent EKG in July of this year showed normal sinus rhythm. Patient has a history of coronary disease, status post three-vessel CABG at [facility] in the early part of 2017. Has been followed with cardiology services at [facility] since that time. Has a history of diabetes, has been on insulin now for about a year and a half. Has been on a variety of oral medications through her doctor in [facility] with samples being provided apparently because of cost reasons. She is currently on glimepiride, and Lantus insulin. She is intolerant to metformin because of GI effects. She recalls being on Januvia in the past but denies ever being on any of the SGLT2 inhibitors The above per Dr. Jean Cardiology consulted for evaluation of possible newly diagnosed atrial fibrillation. Pt is in bed eating breakfast in NAD. Telemetry strips show NSR/junctional escape. Computer scan of admission EKG appears to show NSR with PAC's but difficult to interpret due to background artifact. [facility] History Medical History: Reports:: Arrhythmia, Atrial Fibrillation (Newly diagnosed this admission), Coronary Artery Disease, Diabetes Mellitus Type 2 (uncontrolled), Hyperlipidemia, Hypertension Denies:: Cancer, Diabetes Mellitus Type 1, Internal Pacemaker, MRSA, Seizures *Have you ever received a pneumonia vaccine?: Yes *Have you received a flu vaccine this season?: Yes Anesthesia experience/problems:: no prior complications Other Surgeries: Yes: CABG (11/2017, 3 vessel bypass), Cardiac Surgery, Hysterectomy-Partial. No: Pacemaker Amputation: No Fractures: Yes (left foot) - *Social History Educational Level: Completed High School Smoking Status: Never smoker Alcohol Intake: never Alcohol Intake Frequency:: holidays/special occasions only Substance Use Type: denies use *Occupational Status:: retired Housing: house Household Members: spouse *Travel in the last 8 weeks: None Family Hx:: Cancer, Coronary Artery Disease, Heart Attack Meds Home Medications Medication Instructions Recorded Confirmed Type Glimepiride 4 mg PO DAILY 09/24/17 09/14/19 History aspirin 81 mg tablet,delayed 81 mg PO DAILY tab 01/30/18 09/14/19 History release atorvastatin 80 mg tablet 80 mg PO HS tab 01/30/18 09/15/19 History metoprolol tartrate 25 mg tablet 25 mg PO BID 08/07/18 09/14/19 History Ertugliflozin Pidolate [Steglatro] 15 mg PO DAILY 09/14/19 09/14/19 History Insulin Glargine,Hum.rec.anlog 50 unit SQ PM 09/14/19 09/14/19 History [Basaglar Kwikpen U-100] Allergies Allergy/AdvReac Type Severity Reaction Status Date / Time No Known Allergies Allergy Verified 08/06/19 09:50 Review of Systems - Review of Systems Review of systems:: pertinent systems reviewed and negative unless documented below - *Cardiovascular Denies chest pain, Denies shortness of breath - *Respiratory Denies cough, Denies shortness of breath - *Gastrointestinal Denies abdominal pain, Denies nausea, Denies vomiting - *Genitourinary Denies blood in urine - *Musculoskeletal Reports joint pain, Denies back pain - *Neurologic Denies abnormal walking, Denies abnormal hearing, Denies unsteadiness, Denies dizziness Exam Vital signs and Labs for Last 24 Hours: Temp Pulse Resp BP Pulse Ox 98.4 F 67 18 142/72 H 97 09/16/19 04:00 09/16/19 04:00 09/16/19 04:00 09/16/19 04:00 09/16/19 04:00 Laboratory Results - last 24 hr 09/15/19 11:48: POC Glucose 100 09/15/19 15:58: POC Glucose 147 H 09/15/19 16:39: POC Glucose 156 H 09/15/19 20:47: POC Glucose 148 H 09/16/19 05:39: POC Glucose 93 09/16/19 06:10: WBC 7.5, RBC 3.96 L, Hgb 11.4 L, Hct 35.4 L, MCV 89.5, MCH 28.8, MCHC 32.2, RDW 14.5, Plt Count 154, MPV 7.9, Neut % (Auto) 70.2, Lymph % (Auto) 21.5, [place] % (Auto) 5.9, Eos % (Auto) 1.9, Baso % (Auto) 0.5, Neut # (Auto) 5.2, Lymph # (Auto) 1.6, [place] # (Auto) 0.4, Eos # (Auto) 0.1, Baso # (Auto) 0.0 I & O for Last 24 hours: Intake & Output 09/13/19 09/14/19 09/15/19 09/16/19 11:59 11:59 11:59 11:59 Intake Total 1538 / 1538 2263 / 2263 Output Total 1300 / 1300 1100 / 1100 Balance 238 / 238 1163 / 1163 Weight 149 lb 9 oz 144 lb 4 oz - *Routine HEENT Exam Head: Present: normocephalic Eye: Present: EOMI, PERRL ENT: Present: mucous membranes moist - *Routine Neck Exam Present: supple. Absent: JVD, carotid bruit - *Routine Respiratory Exam Present: CTA bilaterally. Absent: accessory muscle use, rales, rhonchi, wheezes - *Routine Cardiovascular Exam Present: RRR. Absent: murmur, gallop, rubs - *Routine Abdominal Exam Present: soft. Absent: tenderness, distended, guarding - *Routine Extremities Exam Absent: edema, calf tenderness - *Routine Neurological Exam Present: alert, oriented X3, moving all extremities Assessment and Plan (1) Diabetes Current visit: Yes Status: Acute Category: Medical Code(s): E11.9 - Type 2 diabetes mellitus without complications (2) Multiple closed fractures of right foot Current visit: Yes Status: Acute Qualifiers: Encounter type: initial encounter Qualified Code(s): S92.901A - Unspecified fracture of right foot, initial encounter for closed fracture Category: Medical Code(s): S92.901A - Unspecified fracture of right foot, initial encounter for closed fracture (3) Right calcaneal fracture Current visit: No Status: Acute Qualifiers: Encounter type: initial encounter Calcaneus location: unspecified portion of calcaneus Fracture type: closed Fracture alignment: displaced Qualified Code(s): S92.001A - Unspecified fracture of right calcaneus, initial encounter for closed fracture Category: Medical Code(s): S92.001A - Unspecified fracture of right calcaneus, initial encounter for closed fracture (4) CAD (coronary artery disease) Current visit: No Status: Chronic Qualifiers: Coronary Disease-Associated Artery/Lesion type: bypass graft [place] vs. transplanted heart: [place] heart Associated angina: without angina Qualified Code(s): I25.810 - Atherosclerosis of coronary artery bypass graft(s) without a ngina pectoris Category: Medical Code(s): I25.10 - Atherosclerotic heart disease of [place] coronary artery without angina pectoris (5) S/P CABG (coronary artery bypass graft) Current visit: No Status: Chronic Category: Surgical Code(s): Z95.1 - Presence of aortocoronary bypass graft (6) New onset atrial fibrillation Current visit: Yes Status: Resolved Category: Medical Code(s): I48.91 - Unspecified atrial fibrillation - Assessment and plan all Dx Assessment and Plan for all problems:: 1. Cardiology consulted for possible new onset atrial fibrillation. Upon review of EKG and telemetry strips during this admission, it appears she has maintained NSR or has multifocal atrial rhythm vs junctional rhythm with ectopy (PAC's). Pt does have a CHADS-VASC score of 4 and recommendation would be for anticoagulation if A. fib confirmed. Since no convincing evidence of A. fib at this time, will not need anticoagulation at this time. Preliminary echo confirms normal LVEF. Pt could be discharged home on current metoprolol dosing with 48 hr [facility] and early follow up next week. 2. Fall with right foot fracture and surgical correction. Pt reports she will need another surgery in the near future. 3. CAD, s/p CABG, stable on aspirin, statin and beta-gabby therapy 4. Diabetes mellitus, on combination of insulin and oral medications per PCP
--- NOTE | 2019-09-16 08:31 | Progress Note ---
Internal Medicine - PN: Subj *Date: 09/16/19 *Time: 08:29 Interval history: Overall patient feels well, slept well. Cardiology consult note reviewed and appreciated. Exam Vital signs and Labs for Last 24 Hours: Temp Pulse Resp BP Pulse Ox 98.5 F 68 18 172/68 H 95 09/16/19 08:00 09/16/19 08:00 09/16/19 08:00 09/16/19 08:00 09/16/19 08:00 Laboratory Results - last 24 hr 09/15/19 11:48: POC Glucose 100 09/15/19 15:58: POC Glucose 147 H 09/15/19 16:39: POC Glucose 156 H 09/15/19 20:47: POC Glucose 148 H 09/16/19 05:39: POC Glucose 93 09/16/19 06:10: WBC 7.5, RBC 3.96 L, Hgb 11.4 L, Hct 35.4 L, MCV 89.5, MCH 28.8, MCHC 32.2, RDW 14.5, Plt Count 154, MPV 7.9, Neut % (Auto) 70.2, Lymph % (Auto) 21.5, [place] % (Auto) 5.9, Eos % (Auto) 1.9, Baso % (Auto) 0.5, Neut # (Auto) 5.2, Lymph # (Auto) 1.6, [place] # (Auto) 0.4, Eos # (Auto) 0.1, Baso # (Auto) 0.0 09/16/19 06:10: Sodium 144, Potassium 4.2, Chloride 108 H, Carbon Dioxide 26, Anion Gap 14.2, BUN 12, Creatinine 0.82, Estimated Creat Clear 53, Estimated GFR 69, Est GFR ( Amer) 83, Glucose 99 D, Calcium 8.0 L I & O for Last 24 hours: Intake & Output 09/13/19 09/14/19 09/15/19 09/16/19 11:59 11:59 11:59 11:59 Intake Total 1538 / 1538 2743 / 2743 Output Total 1300 / 1300 1100 / 1100 Balance 238 / 238 1643 / 1643 Weight 149 lb 9 oz 144 lb 4 oz Narrative: Patient feels well this morning. No complaints. Pulse rate regular. Lungs are clear. Abdomen soft, Neurologically intact. Oropharynx clear. Extremity exam normal except for right leg in splint. Please see orthopedics exam for details. Assessment and Plan (1) Diabetes Current visit: Yes Status: Acute Category: Medical Code(s): E11.9 - Type 2 diabetes mellitus without complications (2) Multiple closed fractures of right foot Current visit: Yes Status: Acute Qualifiers: Encounter type: initial encounter Qualified Code(s): S92.901A - Unspecified fracture of right foot, initial encounter for closed fracture Category: Medical Code(s): S92.901A - Unspecified fracture of right foot, initial encounter for closed fracture (3) Right calcaneal fracture Current visit: No Status: Acute Qualifiers: Encounter type: initial encounter Calcaneus location: unspecified portion of calcaneus Fracture type: closed Fracture alignment: displaced Qualified Code(s): S92.001A - Unspecified fracture of right calcaneus, initial encounter for closed fracture Category: Medical Code(s): S92.001A - Unspecified fracture of right calcaneus, initial encounter for closed fracture (4) CAD (coronary artery disease) Current visit: No Status: Chronic Qualifiers: Coronary Disease-Associated Artery/Lesion type: bypass graft [place] vs. transplanted heart: [place] heart Associated angina: without angina Qualified Code(s): I25.810 - Atherosclerosis of coronary artery bypass graft(s) without angina pectoris Category: Medical Code(s): I25.10 - Atherosclerotic heart disease of [place] coronary artery without angina pectoris (5) S/P CABG (coronary artery bypass graft) Current visit: No Status: Chronic Category: Surgical Code(s): Z95.1 - Presence of aortocoronary bypass graft (6) New onset atrial fibrillation Current visit: Yes Status: Resolved Category: Medical Code(s): I48.91 - Unspecified atrial fibrillation Atrial fibrillation ruled out by further review of EKG. Will hold on further anticoagulation. Will back down to once daily Lovenox for DVT prophylaxis at this point. On discharge she will need standard postoperative DVT prophylaxis. No contraindication to discharge today from a medical perspective.
--- NOTE | 2019-09-16 08:47 | Discharge Summary ---
General - General Admission date:: 09/14/19 Discharge date: 09/16/19 HPI HPI: Patient suffered a fall on 09/13/2019 after missing a step going out of the pharmacy on the ground floor of this building. She was taken to the urgent treatment center where x-rays demonstrated fracture and she was placed in a walking boot. However once podiatry services had reviewed her fracture they determined this was at high risk for conversion to an open fracture and orthopedics and podiatry were able to get a hold of the patient and bring her back into the ER today where she was admitted for operative repair of the fracture. Please see orthopedic notes for details. On presentation to the ER patient was noted to be in rate controlled atrial fibrillation with normal blood pressure. She cannot recall any heart irregularity, denies palpitations, chest pain, syncope or recent edema or dyspnea. There is no record of patient ever having atrial fibrillation. Most recent EKG in July of this year showed normal sinus rhythm. Patient has a history of coronary disease, status post three-vessel CABG at [facility] in the early part of 2018. Has been followed with cardiology services at [facility] since that time. Has a history of diabetes, has been on insulin now for about a year and a half. Has been on a variety of oral medications through her doctor in [facility] with samples being provided apparently because of cost reasons. She is currently on glimepiride, and Lantus insulin. She is intolerant to metformin because of GI effects. She recalls being on Januvia in the past but denies ever being on any of the SGLT2 inhibitors. Hospital Course Hospital Course: Patient was admitted, reviewed her cardiac data which was reassuring. EKG on further review showed evidence of ectopy but no evidence of atrial fibrillation. She was anticoagulated as a precaution, but otherwise did well. She was subjected to surgery through orthopedic and podiatry services without problems. Please see orthopedic and podiatry notes. Patient had no cardiac issues after surgery and this morning is feeling well. Please see my progress note for details. She will be discharged home with pain medication, aspirin therapy for DVT prophylaxis and close follow-up with podiatry for possible redo surgery. Of note, blood pressure is slightly high, we will not adjust this, will follow as an outpatient closely when she comes back for podiatry services and with her regular physician. Of note, I recommended stopping sulfonylurea because of its high risk status in the elderly as well as propensity for hypoglycemia. She will continue SGLT2 inhibitor which apparently she is on as well as her low-dose Lantus. Objective Vital signs: Temp Pulse Resp BP Pulse Ox 98.5 F 68 18 172/68 H 95 09/16/19 08:00 09/16/19 08:00 09/16/19 08:00 09/16/19 08:00 09/16/19 08:00 Narrative: Pleasant, alert, oriented x3. No JVD. Oropharynx clear. Lungs clear, heart rate regular. Abdomen soft. Extremity exam per orthopedics. Results Labs on day of discharge: Labs from last 24 hours 09/16/19 09/16/19 09/16/19 06:10 06:10 05:39 WBC 7.5 RBC 3.96 L Hgb 11.4 L Hct 35.4 L MCV 89.5 MCH 28.8 MCHC 32.2 RDW 14.5 Plt Count 154 MPV 7.9 Neut % (Auto) 70.2 Lymph % (Auto) 21.5 [place] % (Auto) 5.9 Eos % (Auto) 1.9 Baso % (Auto) 0.5 Neut # (Auto) 5.2 Lymph # (Auto) 1.6 [place] # (Auto) 0.4 Eos # (Auto) 0.1 Baso # (Auto) 0.0 Sodium 144 Potassium 4.2 Chloride 108 H Carbon Dioxide 26 Anion Gap 14.2 BUN 12 Creatinine 0.82 Estimated Creat Clear 53 Estimated GFR 69 Est GFR ( Amer) 83 Glucose 99 D POC Glucose 93 Calcium 8.0 L 09/15/19 09/15/19 09/15/19 20:47 16:39 15:58 WBC RBC Hgb Hct MCV MCH MCHC RDW Plt Count MPV Neut % (Auto) Lymph % (Auto) [place] % (Auto) Eos % (Auto) Baso % (Auto) Neut # (Auto) Lymph # (Auto) [place] # (Auto) Eos # (Auto) Baso # (Auto) Sodium Potassium Chloride Carbon Dioxide Anion Gap BUN Creatinine Estimated Creat Clear Estimated GFR Est GFR ( Amer) Glucose POC Glucose 148 H 156 H 147 H Calcium 09/15/19 11:48 WBC RBC Hgb Hct MCV MCH MCHC RDW Plt Count MPV Neut % (Auto) Lymph % (Auto) [place] % (Auto) Eos % (Auto) Baso % (Auto) Neut # (Auto) Lymph # (Auto) [place] # (Auto) Eos # (Auto) Baso # (Auto) Sodium Potassium Chloride Carbon Dioxide Anion Gap BUN Creatinine Estimated Creat Clear Estimated GFR Est GFR ( Amer) Glucose POC Glucose 100 Calcium DS: Diagnosis - Discharge Diagnosis (1) Diabetes Status: Chronic (2) Multiple closed fractures of right foot Status: Acute (3) Right calcaneal fracture Status: Acute (4) CAD (coronary artery disease) Status: Chronic (5) S/P CABG (coronary artery bypass graft) Status: Chronic (6) New onset atrial fibrillation Status: Resolved Discharge Plan - Patient Discharge Instructions ACTIVITY: Continue current activity DIET: continue same diet Patient Instructions: Atrial Fibrillation, DI for Atrial Fibrillation, DI for Fracture Reduction, DI for Surgical Site Infection, How to Care for Your External Fixation Device - Follow up Plan Follow up with: Eneida Noriega DPM [Staff Physician] - Disposition: Home, Self-Custodial Medications: Home Medications Medication Instructions Recorded Confirmed Type Glimepiride 4 mg PO DAILY 09/24/17 09/14/19 History aspirin 81 mg tablet,delayed 81 mg PO DAILY tab 01/30/18 09/14/19 History release atorvastatin 80 mg tablet 80 mg PO HS tab 01/30/18 09/15/19 History metoprolol tartrate 25 mg tablet 25 mg PO BID 08/07/18 09/14/19 History Ertugliflozin Pidolate [Steglatro] 15 mg PO DAILY 09/14/19 09/14/19 History Insulin Glargine,Hum.rec.anlog 50 unit SQ PM 09/14/19 09/14/19 History [Francaagladelso Baerpen U-100] Aspirin [Aspirin 325mg Tab] 325 mg PO DAILY #30 tab 09/16/19 Rx Oxycodone HCl/Acetaminophen 1 tab PO Q6H PRN #24 tab 09/16/19 Rx [Percocet 5/325mg tablet] Prescriptions/Medication Reconciliation: New Oxycodone HCl/Acetaminophen [Percocet 5/325mg tablet] 1 tab PO Q6H PRN #24 tab PRN Reason: Severe Pain Aspirin [Aspirin 325mg Tab] 325 mg PO DAILY #30 tab Continued atorvastatin 80 mg tablet 80 mg PO HS tab metoprolol tartrate 25 mg tablet 25 mg PO BID Ertugliflozin Pidolate [Steglatro] 15 mg PO DAILY Insulin Glargine,Hum.rec.anlog [Priscila Nickerson U-100] 50 unit SQ PM Discontinued aspirin 81 mg tablet,delayed release 81 mg PO DAILY tab Glimepiride 4 mg PO DAILY - Problem Reconciliation Problems Reviewed?: Yes
--- NOTE | 2019-09-16 09:33 | Consult Report ---
*Admission Date: 09/15/19 *Reason for consult:: R Calc fracture *History of present illness: 74yo F with R calcaneus fracture. She was leaving [facility] yesterday and missed a step; she fell and injured the R ankle. She was seen in the [facility] where XR were performed, showing a comminuted, displaced calcaneus fracture. Neither orthopedic or podiatry were called directly. She was placed into a CAM boot, discharged home and given instructions to follow-up with Dr. Noriega. The patient called Dr. Noriega's office, and the office staff contacted Dr. Noriega, who received the message Sat morning. After review of the XR, Dr. Noriega spoke with Dr. Craig regarding concern this could turn into an open fracture. The proximal fracture fragment was displaced with very little soft tissue covering it; the swelling and internal pressure from the fracture fragment can often lead to rapid skin necrosis and convert the injury to an open fracture. This is typically treated surgically in an urgent fashion, so patient was called at home and asked to return to the ER for evaluation. She reports discomfort in the heel in the boot, so she has been removing this at home to elevate the foot. She denies numbness in the foot. History is significant for HTN, HL, DM, CAD s/p CABG. Denies h/o Afib. She is unsure of the exact value, but believes her last A1C was around 8; this is down from >14 last year. No anticoagulant use. 09/14/2019 patient under went a right percutaneous pinning with closed reduction calcaneal fracture and application of delta frame, external fixation device. CT scan done after surgery. Patient has been admitted for cardiac testing and is due to be discharged later today 09/16/2019. The patient is doing well this morning. Seen in conjunction with Dr. Craig. After evaluation by cardiology this morning, it is unclear if she truly has atrial fibrillation. She has been on a nuclear monitoring technician all weekend and echo was done this morning; she's maintained NSR without convincing evidence of afib. Normal LVEF. Cards plans on Holter monitor as outpatient. Foot surgery will be staged pending condition of the soft tissues. Review of Systems - Review of Systems Review of systems:: pertinent systems reviewed and negative unless documented below - Constitutional Denies chills - Eyes Denies blind spots - ENT Denies abnormal hearing - *Cardiovascular Denies chest pain, Denies shortness of breath - *Respiratory Denies chest congestion - *Gastrointestinal Denies abdominal pain - *Genitourinary Denies abnormal periods - *Musculoskeletal Reports joint swelling, Reports radiating pain into limb - Integumentary/Breasts Reports nail changes, Reports dry skin, Reports other (bruising right heel) - *Neurologic Denies abnormal walking, Denies abnormal hearing, Denies unsteadiness, Denies dizziness - Psychiatric Denies abnormal sleep pattern - Hematologic/Lymphatic Reports easy bruising [facility] History I have reviewed the patient's past medical history: Yes Medical History: Reports:: Arrhythmia, Atrial Fibrillation (Newly diagnosed this admission), Coronary Artery Disease, Diabetes Mellitus Type 2 (uncontrolled), Hyperlipidemia, Hypertension Denies:: Cancer, Diabetes Mellitus Type 1, Internal Pacemaker, MRSA, Seizures *Have you ever received a pneumonia vaccine?: Yes *Have you received a flu vaccine this season?: Yes Anesthesia experience/problems:: no prior complications Other Surgeries: Yes: CABG (11/2017, 3 vessel bypass), Cardiac Surgery, Hysterectomy-Partial. No: Pacemaker Amputation: No Fractures: Yes (left foot) - *Social History Educational Level: Completed High School Smoking Status: Never smoker Alcohol Intake: never Alcohol Intake Frequency:: holidays/special occasions only Substance Use Type: denies use *Occupational Status:: retired Housing: house Household Members: spouse *Travel in the last 8 weeks: None Family Hx:: Cancer, Coronary Artery Disease, Heart Attack Meds Home Medications Medication Instructions Recorded Confirmed Type atorvastatin 80 mg tablet 80 mg PO HS tab 01/30/18 09/15/19 History metoprolol tartrate 25 mg tablet 25 mg PO BID 08/07/18 09/14/19 History Ertugliflozin Pidolate [Steglatro] 15 mg PO DAILY 09/14/19 09/14/19 History Insulin Glargine,Hum.rec.anlog 50 unit SQ PM 09/14/19 09/14/19 History [Priscila Nickerson U-100] Aspirin [Aspirin 325mg Tab] 325 mg PO DAILY #30 tab 09/16/19 Rx Oxycodone HCl/Acetaminophen 1 tab PO Q6H PRN #24 tab 09/16/19 Rx [Percocet 5/325mg tablet] Allergies Allergy/AdvReac Type Severity Reaction Status Date / Time No Known Allergies Allergy Verified 08/06/19 09:50 Exam Vital signs and Labs for Last 24 Hours: Temp Pulse Resp BP Pulse Ox 98.5 F 68 18 172/68 H 95 09/16/19 08:00 09/16/19 08:00 09/16/19 08:00 09/16/19 08:00 09/16/19 08:00 Laboratory Results - last 24 hr 09/15/19 11:48: POC Glucose 100 09/15/19 15:58: POC Glucose 147 H 09/15/19 16:39: POC Glucose 156 H 09/15/19 20:47: POC Glucose 148 H 09/16/19 05:39: POC Glucose 93 09/16/19 06:10: WBC 7.5, RBC 3.96 L, Hgb 11.4 L, Hct 35.4 L, MCV 89.5, MCH 28.8, MCHC 32.2, RDW 14.5, Plt Count 154, MPV 7.9, Neut % (Auto) 70.2, Lymph % (Auto) 21.5, [place]ade % (Auto) 5.9, Eos % (Auto) 1.9, Baso % (Auto) 0.5, Neut # (Auto) 5.2, Lymph # (Auto) 1.6, Dade # (Auto) 0.4, Eos # (Auto) 0.1, Baso # (Auto) 0.0 09/16/19 06:10: Sodium 144, Potassium 4.2, Chloride 108 H, Carbon Dioxide 26, Anion Gap 14.2, BUN 12, Creatinine 0.82, Estimated Creat Clear 53, Estimated GFR 69, Est GFR ( Amer) 83, Glucose 99 D, Calcium 8.0 L I & O for Last 24 hours: Intake & Output 09/13/19 09/14/19 09/15/19 09/16/19 11:59 11:59 11:59 11:59 Intake Total 1538 / 1538 2743 / 2743 Output Total 1300 / 1300 1100 / 1100 Balance 238 / 238 1643 / 1643 Weight 149 lb 9 oz 144 lb 4 oz - Constitutional no acute distress - *Routine HEENT Exam Head: Present: normocephalic - *Routine Neck Exam Present: supple - *Routine Respiratory Exam Present: accessory muscle use. Absent: respiratory distress - *Routine Cardiovascular Exam Present: RRR - *Routine Abdominal Exam Present: soft - *Routine Rectal Exam Patient deferred: visual exam - *Routine Exam Patient deferred: external exam - *Routine Extremities Exam Present: edema, pulses intact, normal capillary refill. Absent: calf tenderness - *Routine Skin Exam Present: dry, warm, ecchymosis - *Routine Neurological Exam Present: alert - Detailed Lower Extremity Exam Comments: Right foot external fixation device and dressing clean dry and intact. Cap fill time within normal limits to the digits. No calf or thigh pain noted bilaterally. Motor function and light touch sensation at baseline. Elongated thickened toenails 1 through 10. Dressing left clean dry and intact to the right lower extremity. Previously Monday the entire foot and ankle had edema and bruising. There was fracture blisters and ecchymosis noted to the heel where the calcaneus was tenting the skin. Results - Labs Result Diagrams: 09/16/19 06:10 09/16/19 06:10 Labs: Abnormal lab results 09/15/19 09/15/19 09/15/19 Range/Units 15:58 16:39 20:47 RBC (4.20-5.40) M/mm3 Hgb (12.2-16.2) g/dL Hct (37.0-47.0) % Chloride (98-107) mmol/L POC Glucose 147 H 156 H 148 H (70-110) Calcium (8.5-10.1) mg/dL 09/16/19 09/16/19 Range/Units 06:10 06:10 RBC 3.96 L (4.20-5.40) M/mm3 Hgb 11.4 L (12.2-16.2) g/dL Hct 35.4 L (37.0-47.0) % Chloride 108 H (98-107) mmol/L POC Glucose (70-110) Calcium 8.0 L (8.5-10.1) mg/dL H & H 09/14/19 09/15/19 09/16/19 Range/Units 13:30 06:18 06:10 Hgb 14.5 11.8 L D 11.4 L (12.2-16.2) g/dL Hct 42.9 36.2 L 35.4 L (37.0-47.0) % Coagulation 09/14/19 Range/Units 13:30 INR 1.01 (0.9-1.1) All other labs normal. - Diagnostic results Ankle/Foot x-ray: report reviewed, image reviewed Ankle/Foot CT: report reviewed, image reviewed Assessment and Plan (1) Diabetes Current visit: Yes Status: Chronic Category: Medical Code(s): E11.9 - Type 2 diabetes mellitus without complications (2) Multiple closed fractures of right foot Current visit: Yes Status: Acute Qualifiers: Encounter type: initial encounter Qualified Code(s): S92.901A - Unspecified fracture of right foot, initial encounter for closed fracture Category: Medical Code(s): S92.901A - Unspecified fracture of right foot, initial encounter for closed fracture (3) Right calcaneal fracture Current visit: No Status: Acute Qualifiers: Encounter type: initial encounter Calcaneus location: unspecified portion of calcaneus Fracture type: closed Fracture alignment: displaced Qualified Code(s): S92.001A - Unspecified fracture of right calcaneus, initial encounter for closed fracture Category: Medical Code(s): S92.001A - Unspecified fracture of right calcaneus, initial encounter for closed fracture (4) CAD (coronary artery disease) Current visit: No Status: Chronic Qualifiers: Coronary Disease-Associated Artery/Lesion type: bypass graft [place] vs. transplanted heart: [place] heart Associated angina: without angina Qualified Code(s): I25.810 - Atherosclerosis of coronary artery bypass graft(s) without angina pectoris Category: Medical Code(s): I25.10 - Atherosclerotic heart disease of inup[place] coronary artery without angina pectoris (5) S/P CABG (coronary artery bypass graft) Current visit: No Status: Chronic Category: Surgical Code(s): Z95.1 - Pre sence of aortocoronary bypass graft (6) New onset atrial fibrillation Current visit: Yes Status: Resolved Category: Medical Code(s): I48.91 - Unspecified atrial fibrillation (7) Closed fracture of cuneiform of right foot Current visit: Yes Status: Acute Category: Medical (8) Closed right tarsal navicular fracture Current visit: Yes Status: Acute Category: Medical Code(s): S92.251A - Displaced fracture of navicular [scaphoid] of right foot, initial encounter for closed fracture (9) Closed right cuboid fracture Current visit: Yes Status: Acute Category: Medical Code(s): S92.211A - Displaced fracture of cuboid bone of right foot, initial encounter for closed fracture (10) Edema of right lower extremity Current visit: Yes Status: Acute Category: Medical Code(s): R60.0 - Localized edema - Assessment and plan all Dx Assessment and Plan for all problems:: DOS: 09/14/19 S/P Right closed reduction and percutaneous pinning calcaneal fracture, application of delta frame external fixation device. Medical mgmt and cardiac evaluation performed. Dr Jean - medical clearance. Patient is to maintain dressing clean dry and intact to RLE. Ice top of foot and elevate on two pillows. Non weight bearing to the right lower extremity with DME assistance. Patient has walker. Case mgmt - wheelchair. Take Rx as previously directed. Follow up with me for surgical planning visit 09/20/2019.
--- NOTE | 2019-09-16 10:15 | Progress Note ---
[facility] Anesthesia Record Part II Discharge Time: 14:20 Destination: Medical Surgical Department PACU nurse assessment reviewed?: Yes Patient Condition:: Good Anesthesia Complications:: None Swallowing reflex intact?: Yes Cyanosis?: No Blood Pressure: 160/64 Pulse Rate: 84 Temperature: 97.4 F Mental Status: Alert & Oriented Pain level:: 0 Nausea and/or vomitting:: None Intake, IV Amount: 0
[2019-09-16 11:43] VITALS: BP 187/72
--- NOTE | 2019-09-16 12:50 | Progress Note ---
Subjective Date: 09/16/19 Time: 09:00 Principal diagnosis: R calcaneus fracture Interval history: The patient is doing well this morning. Seen in conjunction with Dr. Noriega, who is discussing the next step in treatment with the patient. After evaluation by cardiology this morning, it is unclear if she truly has atrial fibrillation. She has been on a property assessment monitor all weekend and echo was done this morning; she's maintained NSR without convincing evidence of afib. Normal LVEF. Cards plans on Holter monitor as outpatient. PN: Obj Ex Vital signs: Temp Pulse Resp BP Pulse Ox 98.7 F 70 18 187/72 H 91 L 09/16/19 11:41 09/16/19 11:41 09/16/19 11:41 09/16/19 11:41 09/16/19 11:41 - Constitutional no acute distress - Routine HEENT Exam Head: Present: normocephalic Eye: Present: EOMI ENT: Present: mucous membranes moist - Routine Extremities Exam Comments: RLE ex-fix intact, dressings c/d/i w/o strikethrough pin sites c/d/i w/o drainage wiggles toes; cannot DF/PF ankle due to ex-fix; EHL intact palpable pedal pulses RLE, skin warm and pink with BCR SILT distally RLE R calf soft, non-tender Progress Note: A&P (1) Diabetes Status: Chronic Current Visit: Yes (2) Multiple closed fractures of right foot Status: Acute Current Visit: Yes (3) Right calcaneal fracture Status: Acute Current Visit: No (4) CAD (coronary artery disease) Status: Chronic Current Visit: No (5) S/P CABG (coronary artery bypass graft) Status: Chronic Current Visit: No (6) New onset atrial fibrillation Status: Resolved Current Visit: Yes Assessment and Plan for All Diagnoses:: 74yo F POD 2 s/p CRPP + external fixator application R calcaneus fracture; also with fractures of multiple midfoot bones (cuboid, navicular, cuneiforms). -- continue NWB RLE, keep elevated as high/frequently as possible for decreased edema. I will be transferring care to Dr. Noriega for definitive fixation; after discharge, outpatient follow-up will be arranged by Dr. Noriega's office. -- I recommend continuing oral antibiotic after discharge, as long as external fixator remains in place.
--- NOTE | 2019-09-16 14:12 | Operative Note ---
Date of procedure: 09/14/19 Pre-op Diagnosis:: 1. Right tongue-type calcaneus fracture with intra-articular extension and commminution 2. Right foot fracture blistering over posterior heel - impending open fracture 3. Right severe soft tissue swelling with ecchymosis 4. Right osteopenia Post-op Diagnosis:: Same + cuneiform fracture, navicular fracture, cuboid fractures Procedure performed:: 1. Right closed reduction with percutaneous pinning right calcaneal fracture 2. Right application of external fixation device (trauma delta frame) Surgeon:: MD Eneida Lewis DPM EMBROIDERY MACHINE OPERATOR:: Mj Mathis Anesthesia: GETA, regional Estimated blood loss (mL): 5 Clinical Note:: See Dr. Craig's op note. DOI: 09/13/19 right calcaneal fracture with imp ending skin necrosis and skin tenting. Operative findings:: Tongue-type calcaneus fracture with intra-articular extension and commminution; osteopenia. Severe soft tissue swelling with ecchymosis, fracture blistering over posterior heel - impending open fracture. Skin tenting of fracture fragment on posterior heel. Operative note:: The patient was identified in preoperative holding and the right leg signed by Dr. Craig, who reviewed the consent with the patient and her family and answered all questions. Regional nerve block was administered by anesthesia. She was then taken to the operating room and placed supine on the OR table. 1 g of Ancef were infused intravenously and IV sedation given. Once the patient was sedated, the right leg prepped and draped in the usual sterile fashion from the upper thigh to the toes. Timeout was performed, identifying the correct patient, correct procedure, and correct site. Right closed reduction, percutaneous pinning right calcaneal fracture: Utilizing intraoperative fluoroscopy the fracture was identified. There was a tongue type fracture with intra-articular extension extension and comminution noted to the right calcaneus. Due to the significant amount of soft tissue swelling and edema along with fracture blisters decision was made to stage the surgery. I inserted a smooth 0.062 K wire percutaneously in the proximal calcaneal fragment from posterior to anterior to use a joystick. Another pin was passed through the distal inferior fracture fragment. While he held the fracture in reduction Dr. Ham utilized a pointed reduction forcep percutaneously over the fracture into the anterior calcaneus. The fragment immediately relieve pressure off of the skin. The 2 smooth K wires were passed pinning the fracture fragments provisionally. The reduction for sepsis were removed and reduction held in position. Right application of external fixation device (Arabella delta trauma frame): The delta frame was applied in standard technique by Dr. Ham. Please refer to her operative note. Final x-rays taken which showed adequate reduction of the calcaneal fracture. The pin sites were all dressed with sterile Xeroform, 4 x 4's and the entire construct wrapped with Kerlix, webril and Ian wraps. The patient was then awoken and transferred to her cart, where she was taken to PACU in good condition. No tourniquet was used during this case and blood loss was minimal, less than 5 cc. The patient tolerated this procedure well with no immediate perioperative complications. I plan to follow-up with the patient patient and will plan for staged right foot ORIF. Tourniquet time (min): 0 Condition: stable Disposition: floor Specimens:: None Complications:: None
--- NOTE | 2019-09-16 19:22 | Cardiology Report ---
APPROVED REPORT EXAM: Comprehensive 2D, Doppler, and color-flow Echocardiogram Dog Boarder: Danisha Moss CRT Ht: 5 ft 2 in Wt: 149lbs BSA: 1.69 BP: 110/70 mmHg Indications: Diabetes, CAD, Hypertension/HDD, CABG 2018, PT FLAT ON BACK DUE TO R FOOT FX AND POST OP 2D Dimensions LVOT 1.44 cm (M/F) 1.5-2.5 M-Mode Dimensions RVDd 2.69 cm (0.9-2.6)LVDd 4.35 cm (3.5-5.7) LVDs 2.60 cm (3.5-5.7)IVSd 1.13 cm (0.6-1.1) PWd 1.16 cm (0.6-1.1)EF (Teich) 71.20% FS 40.20% EDV (Teich) 85.40 mL ESV (Teich) 24.60 mL LV Diastology E/A Ratio 1.25 Mitral Valve MV A Velocity 86.00 (40-130 cm/s) Left Ventricle Left atrium is mildly enlarged, left ventricle is normal size, mild concentric left ventricular hypertrophy, visually estimated ejection fraction 55% with no regional wall motion abnormality, grade 2 diastolic dysfunction seen with tissue Doppler evidence of raise left atrial pressure. Right Ventricle Right atrium and right ventricle mildly enlarged with normal contractility. Aortic Valve Aortic valve is thickened and calcified leaflet chordae display good mobility, there is no aortic stenosis or aortic insufficiency. Mitral Valve Mitral valve leaflets are minimally thickened, there is mild mitral regurgitation. Tricuspid Valve Tricuspid valve leaflets are minimally thickened, there is no tricuspid stenosis, there is moderate tricuspid regurgitation. Calculated right ventricular systolic pressure is 60 mmHg. Pulmonic Valve Pulmonic valve is poorly visualized. Great Vessels Aortic root is normal size. Pericardium No significant pericardial effusion noted. Conclusion 1. Moderately enlarged left atrium, normal left ventricular size, mild concentric left ventricular hypertrophy, visually estimated ejection fraction 55% with no regional wall motion abnormality, grade 2 diastolic dysfunction seen with tissue Doppler evidence of raise left atrial pressure. 2. Mildly enlarged right atrium and right ventricle, contractility of the right ventricle is normal. 3. Thickened and calcified aortic valve without aortic stenosis or aortic insufficiency. 4. Mild mitral and tricuspid regurgitation, calculated right ventricular systolic pressure is 60 mmHg. 5. No significant pericardial effusion noted. Electronically signed by : Daniel Sandoval, 09/16/2019 19:22:23
== END 2019-09-16 13:15 | disposition home or self-care (01) ==
LOC: ER 13:00 → 2ND 13:42 → INTOOBSV 15:18 → 2ND 15:19
PROVIDERS: ADMIT Internal Medicine Adolescent Medicine; ATTEND Internal Medicine Adolescent Medicine
CPT/HCPCS: 36415; 71010; 71045; 73620; 73650; 73700; 76000; 80048; 80053; 82652; 82962; 83036; 83735; 84443; 85025; 85610; 93005; 93306; 96365; 96375; 97161; 99283; C1713; G0378; J2405; J2704

== ENCOUNTER → 2019-09-19 10:54 | Outpatient (CLI) | payer MEDICARE, SELFPAY ==
--- NOTE | 2019-09-19 11:00 | XR_ITS ---
PROCEDURE: XR DEXA AXIAL SKELETON CLINICAL HISTORY: POST MENOPAUSAL COMPARISON: No exams were available for comparison FINDINGS: The right hip density is 0.678 grams/centimeters sq in the femoral neck with a T-score of -1.5 indicating osteopenia. Total left hip density is 0.679 grams/centimeters sq with a T-score -2.2 consistent with osteopenia. L1-L4 density has a density of 0.993 g per cm sq with a T-score of -0.5. There is moderate scoliosis convex left IMPRESSION: Osteopenia with moderate fracture risk. Treatment advised. Suggest follow-up exam in 2 years Dictated by: Sharan Tsai MD 09/19/2019 16:38 Electronically signed by Sharan Tsai MD in [place] 09/19/2019 16:38
== END ==
PROVIDERS: PCP Internal Medicine; Visit Provider Podiatrist
DX: Z78.0 Asymptomatic menopausal state (principal)
CPT/HCPCS: 77080

== ENCOUNTER 2019-09-24 07:51 | Observation (INO) ==
[2019-09-24 08:53] LABS: INR 0.99 (0.9-1.1); Prothrombin Time 10.3 seconds (9.4-11.8)
--- NOTE | 2019-09-24 09:43 | H&P/Discharge Summary ---
General - General Admission date:: 09/24/2019 Discharge date: 09/26/19 *Admission Date: 09/24/19 *Chief complaint: Right calcaneal fracture *History of present illness: Mrs. Mckinnon is a 74-year-old female with PMH of DM 2, Arrhythmia, Atrial Fibrillation, Coronary Artery Disease, Hyperlipidemia and Hypertension who presents admission after staged right foot surgery. Patient fell 09/13/2019 outside the clinic pharmacy at [facility]. Surgery performed the same day 09/14/2019: Closed reduction with percutaneous pinning calcaneal fracture, application of delta frame (external fixation device). Patient was seen by Dr. Jean and cardiology for questionable A. fib. Patient followed up with cardiology 09/19/2019 for follow-up. She was granted medical and cardiac clearance. Patient is relatively active with her , currently lives at home. I had a long discussion with the patient/family about postoperative treatment. We discussed at length possible SNF for rehab versus home health care for ex-fix dressing changes and physical therapy in a few weeks. Patient does have family support and does not live alone. She is requested to go home after procedure. We will keep for 23-hour observations and likely discharge home with home health care. Patient will need to be nonweightbearing after surgery and will need assistance with activities of daily living. The patient understands post op she will be NWB. 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 The right lower extremity was dusky and discolored and continued to get darker throughout the case. No tourniquet was utilized throughout the case. There was less than 10 cc of blood flow. Dr. Tsai was contacted for recommendations in regards to circulatory evaluation. He recommended a CT aortogram with bilateral lower extremity runoff. Discussed with cardiology, Jean-Paul Gu who also recommended to start aspirin and Xarelto 2.5 mg which will need to be continued when she is discharged home. Patient had vascular runoff with Dr. Grajeda 09/25/2019. Patient had a cath placed in the aorta. Plan to monitor and medically manage lower extremity disease. [facility] History I have reviewed the patient's past medical history: Yes Medical History: Reports:: Arrhythmia, Atrial Fibrillation, Coronary Artery Disease, Diabetes Mellitus Type 2, Hyperlipidemia, Hypertension Denies:: Cancer, Diabetes Mellitus Type 1, Internal Pacemaker, MRSA, Seizures *Have you ever received a pneumonia vaccine?: Yes *Have you received a flu vaccine this season?: Yes Other Medical History: Denies: Blood Transfusion Reaction Other Surgeries: Yes: CABG (11/2017, 3 vessel bypass), Cardiac Surgery, Hysterectomy-Partial. No: Pacemaker Amputation: No Fractures: Yes (left foot) - *Social History Educational Level: Completed High School Smoking Status: Never smoker Alcohol Intake: never Alcohol Intake Frequency:: holidays/special occasions only Substance Use Type: denies use *Occupational Status:: retired Housing: house Household Members: spouse *Travel in the last 8 weeks: None Family Hx:: Cancer, Coronary Artery Disease Review of Systems - Review of Systems Review of systems:: pertinent systems reviewed and negative unless documented b elow - Constitutional Denies chills, Denies weakness - Eyes Denies blind spots - ENT Denies abnormal hearing - *Cardiovascular Denies chest pain, Denies shortness of breath - *Respiratory Denies chest congestion, Denies cough - *Gastrointestinal Denies abdominal pain, Denies nausea - *Genitourinary Denies abnormal periods - *Musculoskeletal Reports joint swelling, Reports limited joint movement, Reports numbness, Reports tingling - Integumentary/Breasts Reports nail changes, Reports dry skin - *Neurologic Reports tingling/numbness/burning sensations - Psychiatric Denies behavioral changes - Endocrine Denies cold intolerance - Hematologic/Lymphatic Reports easy bleeding, Reports easy bruising Exam Vital signs and Labs for Last 24 Hours: Temp Pulse Resp BP Pulse Ox 97.5 F L 63 18 142/70 H 95 09/24/19 08:17 09/24/19 08:17 09/24/19 08:17 09/24/19 08:17 09/24/19 08:17 Laboratory Results - last 24 hr 09/24/19 08:28: POC Glucose 100 09/24/19 08:30: ESR 11 09/24/19 08:30: PT 10.3, INR 0.99 09/24/19 08:30: C-Reactive Protein 0.5 I & O for Last 24 hours: Intake & Output 09/21/19 09/22/19 09/23/19 09/24/19 11:59 11:59 11:59 11:59 Weight 144 lb - Constitutional no acute distress - *Routine HEENT Exam Head: Present: normocephalic Eye: Present: PERRL ENT: Present: mucous membranes moist - *Routine Neck Exam Present: supple - *Routine Respiratory Exam Present: accessory muscle use. Absent: respiratory distress - *Routine Cardiovascular Exam Present: RRR - *Routine Abdominal Exam Present: soft - *Routine Rectal Exam Patient deferred: visual exam - *Routine Exam Patient deferred: external exam - *Routine Extremities Exam Present: edema, pulses intact, normal capillary refill - *Routine Skin Exam Present: ecchymosis - *Routine Neurological Exam Present: alert, moving all extremities - Detailed Lower Extremity Exam Comments: Right lower extremity posterior splint clean dry and intact. Capillary fill time 3-4 seconds to digits. Palpable pedal pulses noted. Light touch sensation and motor function decreased secondary to nerve block. At the end of the case the skin was ecchymotic bruised and dusky, worse around the incision sites and the posterior heel. No calf or thigh pain noted bilaterally. Hospital Course Hospital Course: Toward the end of the case the right lower extremity had increase in bruising and dusky dark discoloration. Dr. Tsai was contacted from the operating room and he suggested a CT angiogram with bilateral lower extremity runoff to evaluate the circulation. Circulation was unable to be evaluated prior to surgery (via ABIs) due to the application of the external fixation device but CFT and pedal pulses noted pre-op. Skin temp and color wnl pre-op. The study was performed after the patient was recovered from anesthesia. Discussed results of the study with Dr. Tsai, patent lower extremity runoff to the extremities. Cardiology was contacted to assess the patient and report. She has an interventional procedure with Dr. Grajeda. Reviewed the runoff exam from yesterday the Dr. Grajeda performed with the patient and her . For now we will leave the wound graft and dressing intact. Patient will follow-up on Monday to have a dressing change. She is to keep this elevated. Nonweightbearing. And likely discharge home today. Results Completed studies during hospitalization [Text1]: 09/25/19, PROCEDURE via Dr. Grajeda: Right radial arterial access Catheter placement in the right common iliac artery Right common iliac artery antegrade angiogram with unilateral runoff to the right foot Catheter placement in the distal abdominal aorta Distal abdominal aortography. PLAN 1. I recommend medical management at this time. As long as patient is healing the surgical incision I would not recommend revascularizing the posterior tibialis artery. While angioplasty can be performed in the event of a poorly healing lower extremity ulcer or surgical wound, the long-term patency of an angioplasty in this vessel is quite poor. Patient would have much greater long- term patency without manipulating the posterior tibialis artery with angioplasty. Should patient experience poorly healing ulcers or surgical wound then I would proceed with angioplasty of the posterior tibialis artery in order to foster healing etc. 2. I recommend medical management Xarelto 2.5 twice daily plus aspirin 81 mg daily for peripheral artery disease. Labs on day of discharge: Labs from last 24 hours 09/24/19 09/24/19 09/24/19 08:30 08:30 08:30 ESR 11 PT 10.3 INR 0.99 POC Glucose C-Reactive Protein 0.5 09/24/19 08:28 ESR PT INR POC Glucose 100 C-Reactive Protein DS: Diagnosis - Discharge Diagnosis (1) Charcot's joint of right foot Status: Acute (2) Cardiovascular risk factor Status: Chronic (3) Closed fracture of cuneiform of right foot Status: Acute (4) Closed right cuboid fracture Status: Acute (5) Closed right tarsal navicular fracture Status: Acute (6) Edema of right lower extremity Status: Acute (7) Foot pain, right Status: Acute (8) Multiple closed fractures of right foot Status: Acute (9) Right calcaneal fracture Status: Acute (10) Diabetes Status: Chronic (11) HHD (hypertensive heart disease) Status: Chronic (12) HLD (hyperlipidemia) Status: Chronic (13) Onychogryphosis Status: Chronic (14) S/P CABG (coronary artery bypass graft) Status: Chronic (15) PAD (peripheral artery disease) Status: Acute (16) Ischemic foot Status: Chronic Discharge Plan - Patient Discharge Instructions ACTIVITY: Limited activity DIET: advance to your usual diet Additional Instructions: Discharge/Plan: Patient is to maintain dressing clean dry and intact. Hold off on icing for now. NWB to RLE with DME assistance (walker, wheelchair). Follow up with PCP: Dr. Wolfe or Dr. Jean for medical mgmt of insulin, IV fluids, cardiac meds and blood pressure. Patient stable from medical stand point. Follow up with Cardio: Dr. Grajeda for CAD, arrhythmia and A. fib. And follow- up with abnormal runoff and cath placement in 2 weeks per Jean-Paul Gu. Plan to d/c to home after PT session. Patient Instructions: Foot Fracture, DI for Surgical Site Infection - Follow up Plan Follow up with: Joseph Grajeda MD [Staff Physician] - 10/09/19 1:30 pm Jus Jean MD [Staff Physician] - Eneida Noriega DPM [Staff Physician] - 09/30/19 1:00 pm Disposition: Home Health Service Home Medications: Home Medications Medication Instructions Recorded Confirmed Type atorvastatin 80 mg tablet 80 mg PO HS tab 01/30/18 09/24/19 History Ertugliflozin Pidolate [Steglatro] 15 mg PO DAILY 09/14/19 09/24/19 History Insulin Glargine,Hum.rec.anlog 50 unit SQ PM 09/14/19 09/24/19 History [Priscila Nickerson U-100] glimepiride 4 mg tablet 4 mg PO DAILY tab 09/19/19 09/24/19 History oxycodone-acetaminophen 5 mg-325 1 tab PO Q6H PRN #24 tab 09/20/19 09/24/19 Rx mg tablet Aspirin [Aspirin 325mg Tab] 325 mg PO DAILY 09/23/19 09/24/19 History Ergocalciferol (Vitamin D2) 50,000 unit PO WEEKLY 09/23/19 09/25/19 History [Drisdol] Enoxaparin Sodium [Lovenox 40 mg SQ DAILY 09/25/19 09/25/19 History 40mg/0.4mL syringe] Metoprolol Tartrate [Lopressor 50 mg PO BID 09/25/19 09/25/19 History 25mg tablet] Ondansetron [Zofran 4mg ODT] 4 mg PO Q6HP PRN 09/25/19 09/25/19 History Oxycodone HCl/Acetaminophen 1 each PO Q4HP PRN #40 tab 09/25/19 Rx [Percocet 7.5/325mg tablet] cephALEXin [Keflex 500mg Cap] 500 mg PO BID 09/25/19 09/24/19 History Prescriptions/Medication Reconciliation: New Oxycodone HCl/Acetaminophen [Percocet 7.5/325mg tablet] 1 each PO Q4HP PRN #40 tab PRN Reason: Severe Pain Atorvastatin Calcium [Lipitor 40mg Tablet] 80 mg PO HS tablet Continued glimepiride 4 mg tablet 4 mg PO DAILY tab Ertugliflozin Pidolate [Steglatro] 15 mg PO DAILY cephALEXin [Keflex 500mg Cap] 500 mg PO BID Metoprolol Tartrate [Lopressor 25mg tablet] 50 mg PO BID Insulin Glargine,Hum.rec.anlog [Basaglar Kwikpen U-100] 50 unit SQ PM Ergocalciferol (Vitamin D2) [Drisdol] 50,000 unit PO WEEKLY Aspirin [Aspirin 325mg Tab] 325 mg PO DAILY Ondansetron [Zofran 4mg ODT] 4 mg PO Q6HP PRN PRN Reason: Nausea Enoxaparin Sodium [Lovenox 40mg/0.4mL syringe] 40 mg SQ DAILY Held oxycodone-acetaminophen 5 mg-325 mg tablet 1 tab PO Q6H PRN #24 tab PRN Reason: Severe Pain Discontinued atorvastatin 80 mg tablet 80 mg PO HS tab - Problem Reconciliation Problems Reviewed?: Yes
--- NOTE | 2019-09-24 11:26 | Progress Note ---
[facility] Anesthesia Checklist - Patient Identification Patient Identification: Arm Band, Verbal (Name & ) - Structural Data Admitted From: Home Planned Operative Procedure/s: Right ankle external fixator removal, charcot reconstruction, External fixa Consent for Planned Operative Procedure(s) Verified: Yes Verified Documents: Surgical Consent, History and Physical - NPO Status Verified Time NPO: 22:00 - Chart Verification Results Verified: CBC, BMP - Additional verifications Patient : No Anesthesia Reactions: No Hx Blood Transfusions: No Blood Transfusion Reaction: No - Airway Assessment C-Spine Mobility Assessed: Yes TMJ Mobility Assessed: Yes Dentition: Dentures-good fit (upper) - Neurological Assessment Level of Consciousness: Awake, Alert, Appropriate, Follows Commands Hx Seizures: No Numbness or tingling in extremities: No - Anesthesia Plan Anesthesia Risk discussed: Yes Anesthesia Plan: Verified ASA Class: III Anesthesia Type: General w/block (Right ACB, Right Popliteal nerve block) [facility] History I have reviewed the patient's past medical history: Yes Medical History: Reports:: Arrhythmia, Atrial Fibrillation, Coronary Artery Disease, Diabetes Mellitus Type 2, Hyperlipidemia, Hypertension Denies:: Cancer, Diabetes Mellitus Type 1, Internal Pacemaker, MRSA, Seizures *Have you ever received a pneumonia vaccine?: Yes *Have you received a flu vaccine this season?: Yes Other Medical History: Denies: Blood Transfusion Reaction Anesthesia experience/problems:: no complications Other Surgeries: Yes: CABG (11/2017, 3 vessel bypass), Cardiac Surgery, Hysterectomy-Partial. No: Pacemaker Amputation: No Fractures: Yes (left foot) - *Social History Educational Level: Completed High School Smoking Status: Never smoker Alcohol Intake: never Alcohol Intake Frequency:: holidays/special occasions only Substance Use Type: denies use *Occupational Status:: retired Housing: house Household Members: spouse *Travel in the last 8 weeks: None Family Hx:: Cancer, Coronary Artery Disease
--- NOTE | 2019-09-24 15:36 | Progress Note ---
[facility] Anesthesia Record Part I Intake, IV Amount: 1,800 Estimated blood loss (mL): 100 Urine output (mL): 220 Blood Pressure: 147/86 SaO2: 92 Pulse Rate: 96 Respiratory Rate: 12 Temperature: 98.3 F Patient is:: Awake, Stable Stable to PACU at:: 15:30
--- NOTE | 2019-09-24 16:05 | Operative Note ---
Date of procedure: 09/24/19 Pre-op Diagnosis:: 1. S/p right closed reduction, percutaneous pinning calcaneal fracture, application of delta external fixation device on 09/14/19 2. Charcot's joint of right foot 3. Right foot multiple fractures 4. Right calcaneus comminuted fracture displaced 5. Right cuboid fracture 6. Right navicular fracture 7. Right cuneiform fracture 8. Osteoporotic bone 9. Right posterior heel wound Post-op Diagnosis:: Same Procedure performed:: 1. Right ORIF calcaneus, navicular, cunieform, cuboid 2. Right foot Charcot reconstruction: NC arthrodesis 3. Right triple arthrodesis (STJ, CC, TN arthrodesis) 4. Right tendo Achilles lengthening 5. Right removal of delta frame 6. Right posterior heel wound debridement 7. Right posterior heel graft application 8. Application of amniotic membrane graft 9. Right application of posterior splint: Surgeon:: Eneida Noriega DPM Change Management Administrator(s):: Hoa Ferro SPECIAL EDUCATION BUS DRIVER:: Mj Ingram Anesthesia: GETA, regional (R popliteal, add canal nerve blocks) Estimated blood loss (mL): 10 Clinical Note:: Right Multiple Foot Fractures with suspected Charcot Neuroarthropathy: 09/14/19: S/p right calcaneal fracture closed reduction with percutaneous pinning, application of delta frame (external fixation device) Surgery was performed by Dr. Craig and myself. She has transferred care to me. Reviewed and discussed imaging with patient/family. I had a long discussion with the patient about the etiology and treatment of Charcot foot. I explained how her diabetes and peripheral neuropathy have contributed to this. We also had a long discussion about her hemoglobin A1c and sugar control. I explained that it is imperative that the sugar stay down, with a goal of under 7.0. Currently Ha1c 8.0%, 09/14/19. Patient does currently smoke. We discussed the progression of Charcot and how that puts her at high risk for medial arch collapse, foot deformities, ulceration, infection leading to amputation, loss of digits, part of the foot or even the leg. She verbalizes understanding. The patient/family and I had a long discussion about her treatment course. We discussed the conservative treatment option of strict nonweightbearing to the right lower extremity. We did discuss surgical intervention with the application of an Ilivarov external fixator, ORIF vs arthrodesis of fractures, Charcot stabilization and KJ. She has agreed to be nonweightbearing for several weeks and with the external fixator. I had a long discussion with the patient/family about postoperative treatment. We discussed at length possible SNF for rehab versus home health care for ex-fix dressing changes and physical therapy in a few weeks. Patient does have family support and does not live alone. She is requested to go home after procedure. We will keep for 23-hour observations and likely discharge home with home health care. Patient will need to be nonweightbearing after surgery and will need assistance with activities of daily living. The patient understands post op she will be NWB. She also understands that she will need to have mcc custom ([facility]) bracing and physical therapy. She will need DM shoes. After a long discussion with the patient in regards to the conservative versus surgical treatment for the acute fractures and Charcot deformity, the patient has elected to proceed with surgery. The patient has been instructed on the planned procedure, all risk versus benefits of the procedure discussed. These include but are not limited to: bleeding, infection of soft tissue or bone, nerve and blood vessel damage, need for further surgery, delay in healing of soft tissue or bone, failure of bones to heal, non-union, mal-union, failure of the implant, broken pins, over lengthening of the tendon, prolonged pain and recovery, prolonged swelling, possible loss of digit/part of foot or leg, CRPS/RSD, DVT, anesthetic complications and even . No guarantees were given. All questions fully answered. The patient verbalized understanding and agreed to proceed with surgery. Written consent was obtained. Necessary labs and pre-op testing ordered: CBC, CMP, CXR, EKG, vascular studies (DAVIDE/toe pressures b/l discussed but unable to perform due to ex fix in place), DEXA, vitamin D. Dr. Jean saw the patient for medical clearance. She was seen and evaluated by cardiology for follow-up 09/19/2019 and granted cardiac clearance. Plan to admit 23 hour observation. She will be strict nonweightbearing after surgery. Discussed DVT prophylaxis with ASA per cardio and Lovenox. Recommend regional popliteal, saphenous nerve block. Patient will need prescription for Lovenox, Motrin, Zofran and narcotic pain medication. She is currently taking Percoect 5/325, Keflex 500mg and vit D. Operative findings:: No signs of infection noted. The bone was soft, crumbly, osteoporotic with extremely poor bone quality. Skin was thin and the heel had peeling skin. At the end of the case there was not enough posterior heel skin to close, leaving a open wound over the Achilles tendon which measured 2.8 x 2.2 x 0.3cm. Fractures noted of the calcaneus, navicular, cuboid, cuneiform. Skin dusky and discolored and cool at end of case. Operative note:: On this date and time patient was deemed an appropriate surgical candidate. Anesthesia performed a pre-op regional popliteal and adductor canal nerve block. With informed consent signed, the patient was taken to the operating theater. The patient was positioned supine. General anesthesia was induced. Tourniquet was applied to the right thigh at 300 mmHg. Right removal of external fixation device (delta frame): The lower extremity was prepped with Betadine. The external fixation device was removed in total without complication. Posterior heel skin thin with blistering noted. Palpable pulse and cap fill time within normal limits. Right Tendon Achilles Lengthening: The right lower extremity was then re-prepped and draped in a normal sterile fashion. Attention was directed to the posterior leg. Three stab incisions where made overlying the Achilles. Utilizing the three holes, percutaneous gracie-section of the Achilles was performed with the foot maximally dorsiflexed. Release of the Achilles contracture was noted. The incisions were flushed with copious sterile saline and the wound was closed with 3-0 Nylon. Right ORIF calcaneus, navicular, cunieform, cuboid: Attention was directed to the lateral foot where an incision was made from the inferior fibula extending to the fifth metatarsal cuboid junction. Dissection was carried down full-thickness as there was minimal subcutaneous and deep tissue. Tissue was very sloughy and soft secondary to fracture blowout and hematoma. There was comminution of the calcaneus and cuboid fractures. Fractures debrided and rinsed with sterile saline. Pro-dense was inserted into the fracture site. Attention was then directed to the medial foot where an incision was mapped out from the inferior medial malleolus extending to the metatarsal cuneiform joint. Dissection was then carried down to the level of the bone with care to maintain surgical hemostasis and safely treat neurovascular structures. There was comminution noted to the cuneiform as well as the navicular fracture fragments. All fractures were debrided and flushed. The fractures were reduced. Upon reduction the calcaneus and cuboid fractures could not be clamped. Due to the extreme comminution as well as the poor bone quality decision was made to stabilize the fractures and in addition do an arthrodesis/fusion of the subtalar joint and calcaneocuboid joint. Right triple arthrodesis (STJ, CC, TN arthrodesis): Similarly when the medial column fractures were reduced the clamps would not hold the osteoporotic bone. The fractures were all fragmented and decision was made to stabilize the fractures as well as perform a talonavicular arthrodesis due to the intra-articular damage at the joint level. Right foot Charcot reconstruction: NC arthrodesis: See above. The remaining damaged cartilage was removed from our cartilage surfaces. Tensix DBM was used to pack all remaining bone voids. Intra operative fluoroscopy was used to evaluate temporary fixation and fracture reduction. Ratify screws were inserted in standard technique to stabilize the calcaneal fracture as well as a subtalar joint. When inserting the STJ screw the calcaneus fractured apart so that screw was removed. The CC joint was stabilized with a plate and 4 locking screws. Attention was then directed to the medial foot where a medial column plate was inserted with 6 locking screws into the cuneiform, navicular and talus. The wounds were then flushed. The deep tissues were reapproximated with 2-0 Vicryl in a running fashion. Subcutaneous tissue reapproximated with 3-0 Vicryl in an interrupted fashion. Application of Amniotic Membrane: After deep closure, the amniotic membrane was inserted over the deep fascia. The subcutaneous tissue layer was closed with 2-0 and 3-0 Vicryl, and more membrane was inserted prior to skin closure. The skin was closed with 3-0 nylon in a Horizontal mattress fashion and reinforced with amol. The tourniquet was not inflated. The digits were dusky at end of case with no thickened discoloration. Pedal pulses still palpable with cap fill time unchanged. Dr. Tsai in radiology was contacted in regards to checking a CT for bilateral lower extremity runoff. Right posterior heel wound debridement: Attention was then directed to the posterior heel where the peeling blistery skin was noted. It was sharply debrided. Reciprocating rasp was used to smooth down the calcaneus so there is no bony prominence. Area was flushed with copious amounts of saline. After the skin was sharply divided with a 15 blade and forceps there was noted to not be enough skin to close over the posterior heel and Achilles tendon. The area measured 2.8 x 2.2 x 0.3cm, through skin and subcutaneous tissue extending to the Achilles tendon. Wound base is 100% granular. Right posterior heel graft application: Once the wound was provided, a Integra prime matrix graft was laid over the top of the incision. It was sutured in place with 3-0 nylon and reinforced with skin amol. Adaptic was then applied followed by Steri-Strips. Right application of posterior splint: Via flow was inserted into the incision sites. Xeroform was applied to remaining incision sites. Dry sterile dressing was applied followed by a below- knee posterior splint to the right lower extremity. Patient was then awoken from anesthesia with vital signs stable neurovascular status intact to be transf erred to recovery. Patient will then be transferred to CT for angiogram with bilateral lower extremity runoff to evaluate lower extremity circulation. Materials: Ratify claw plate x1 with 3.5mm locking screws x4 Walden Destineer medial column plate x1 with 3.5mm locking screws x6 7.0mm fusion beam fully threaded x1 7.0mm fusion beam partially threaded x1 4.0mm cannulated screw x1 Prodense x1 (2cc) Tensix DBM 10cc Viaflow x1 (2cc) Allamo amnio graft x1 (3x4cm) Integra Primatrix graft x1 (3x3cm) Discharge/Plan: Patient will be admitted for 23 hour observation for pain control and medical mgmt per Dr. Jean Patient is to maintain dressing clean dry and intact. Ice behind the knee, polar pack. NWB to RLE with DME assistance (walker, wheelchair). Obtain post op films, calc and foot, 3 views. Consult: Dr. Jean for medical mgmt of insulin, IV fluids, cardiac meds and blood pressure. PT in the am for gait training and transitions. Plan to d/c to home tomorrow after PT session. Tourniquet time (min): 0 Condition: stable Disposition: observation Specimens:: None Complications:: None
--- NOTE | 2019-09-25 07:24 | Pharmacy Consult Notes ---
[facility] Pharmacy VTE Monitoring - Patient Demographics Admission date: 09/24/19 Report Date: 09/25/19 Time: 07:23 Allergies/Adverse Reactions: Patient Allergies No Known Allergies Allergy (Verified 09/24/19 08:12) Height: 1.57 m Weight: 67.16 kg Patient Problems: Current Active Problems Charcot's joint of right foot (Acute) - VTE Risk Labs: VTE Related Lab Results PT 10.3 seconds (9.4-11.8) 09/24/19 08:30 INR 0.99 (0.9-1.1) 09/24/19 08:30 Was VTE Risk Assessment Performed: Yes VTE Score: 5 VTE Risk Level: Low Risk - Prophylaxis VTE Prophylaxis Ordered?: Yes Types of VTE Prophylaxis: IPCS Thigh High Location of Applied Device: Left Leg (PRIOR SURGERY ON RIGHT LE) Pharmacologic Type: Other (XARELTO ORDERED)
--- NOTE | 2019-09-25 07:37 | Progress Note ---
Subjective Date: 09/25/19 Time: 07:05 Principal diagnosis: Right calcaneal fracture, DM Charcot Interval history: Patient is resting comfortably in bed this morning. She denies pain and feeling to the lower extremity secondary to nerve block. She denies nausea vomiting, fever chills, shortness of breath and chest pain. We discussed the CTA procedure after surgery yesterday. I explained that I did the procedure because her foot started to turn dusky and cool during the case. Cap fill time is normal this morning. I explained that there are some abnormalities of the test which showed a 50% stenosis in the left popliteal artery with three-vessel runoff to the knee. I explained that there was a 50% stenosis in the right popliteal artery stenosis of the right peroneal tibial trunk. The dorsalis pedis to the ankle is not opacified consistent with occlusion. The posterior tibial artery is patent constituting the right plantar arch. I explained we put in the consult for cardiology to evaluate the CTA and will await their decision if she can go home today first need further testing or procedure prior to discharge. PN: Obj Ex Vital signs: Temp Pulse Resp BP Pulse Ox 98.0 F 64 18 146/66 H 92 L 09/25/19 04:00 09/25/19 04:00 09/25/19 04:00 09/25/19 04:00 09/25/19 04:00 - Constitutional no acute distress - Routine HEENT Exam Head: Present: normocephalic Eye: Present: PERRL - Routine Neck Exam Present: supple - Routine Respiratory Exam Present: CTA bilaterally. Absent: respiratory distress - Routine Cardiovascular Exam Present: RRR - Routine Abdominal Exam Present: soft. Absent: guarding - Routine Rectal Exam Patient deferred: visual exam - Routine Extremities Exam Present: edema, pulses intact (Palpable to left), normal capillary refill (3-4 seconds to b/l digits). Absent: calf tenderness - Detailed Lower Extremity Exam Comments: There is some dusky purplish discoloration to the dorsal aspect of the right foot visible underneath the splint. This extends to the second MPJ. Cap fill time and skin temperature feels within normal limits to both lower extremities. Palpable pedal pulses on the left. Difficult to palpate pulses on the right secondary to intact splint. Splint clean dry and intact with no signs of strikethrough. Right foot elevated on pillow. SCDs intact to the left. Light touch sensation and motor function decreased on the right secondary to nerve block. No calf or thigh pain noted bilaterally. - Urinary Catheter Management Mixon Cath placed during this visit: no Progress Note: A&P (1) Charcot's joint of right foot Status: Acute Current Visit: Yes (2) Cardiovascular risk factor Status: Chronic Current Visit: No (3) Closed fracture of cuneiform of right foot Status: Acute Current Visit: No (4) Closed right cuboid fracture Status: Acute Current Visit: No (5) Closed right tarsal navicular fracture Status: Acute Current Visit: No (6) Edema of right lower extremity Status: Acute Current Visit: No (7) Foot pain, right Status: Acute Current Visit: No (8) Multiple closed fractures of right foot Status: Acute Current Visit: No (9) Right calcaneal fracture Status: Acute Current Visit: No (10) Diabetes Status: Chronic Current Visit: No (11) HHD (hypertensive heart disease) Status: Chronic Current Visit: No (12) HLD (hyperlipidemia) Status: Chronic Current Visit: No (13) Onychogryphosis Status: Chronic Current Visit: No (14) S/P CABG (coronary artery bypass graft) Status: Chronic Current Visit: No (15) New onset atrial fibrillation Status: Resolved Current Visit: No Assessment and Plan for All Diagnoses:: Discharge/Plan: Patient will be admitted for 23 hour observation for pain control and medical mgmt: DM, HTN, HLD, CAD, A fib, arrhythmia. CT aortagram with b/l LE run off after surgery, discussed results with the patient/. Await cardiology consult and recommendations. Patient is to maintain dressing clean dry and intact. Ice behind the right knee (polar pack). NWB to right lower extremity with DME assistance (walker, wheelchair). X-rays post op films, right calc, foot, 3 views reviewed. Consult: Dr. Jean for medical mgmt of insulin, IV fluids, blood pressure, DVT, ASA/Xarelto. PT in the am for gait training and transitions: NWB. HHC: will be needed in 6-8 weeks for physical therapy. Plan to d/c to home today after PT session, if okay with medicine team and cardiology.
[2019-09-25 08:16] LABS: Albumin Level 2.9 gm/dL (3.4-5.0); Albumin/Globulin Ratio 0.9 (1.1-1.8); Bilirubin,Total 0.4 mg/dL (0.2-1.0); Calcium 8.5 mg/dL (8.5-10.1); Globulin 3.2 gm/dl (1.3-3.2); Total Protein,Serum 6.1 gm/dL (6.4-8.2)
[2019-09-25 08:27] LABS: Basophils % 0.4 % (0.1-2.0); Eosinophils # 0.1 K/mm3 (0.0-0.4); Eosinophils % 0.8 % (0.1-12.0); Hematocrit 36.8 % (37.0-47.0); Hemoglobin 12.2 g/dL (12.2-16.2); Lymphocytes # 1.8 K/mm3 (0.7-4.5); Lymphocytes % 17.5 % (10-50); Mean Corpuscular HGB Conc 33.3 g/dL (31.8-35.4); Mean Corpuscular Volume 87.4 fl (81-99); Monocytes # 0.6 K/mm3 (0.1-1.0); Monocytes % 5.8 % (1.7-9.3); Neutrophils # 7.7 K/mm3 (1.8-7.8); Neutrophils % 75.5 % (37.0-80.0); Platelet Count 263 K/mm3 (142-424); Red Blood Count 4.21 M/mm3 (4.20-5.40); Red Cell Distribution Width 14.9 % (11.5-17.5); White Blood Count 10.3 K/mm3 (4.8-10.8)
--- NOTE | 2019-09-25 08:58 | Consult Report ---
*Admission Date: 09/24/19 *Reason for consult:: Medical management *History of present illness: 74-year-old white female who unfortunately suffered a severe calcaneus fracture 1 week ago, was readmitted to hospital for follow-up ORIF of her heel on podiatry service. We are consulted for medical management. Patient is doing very nicely postoperatively. No cardiopulmonary complaints. [facility] History I have reviewed the patient's past medical history: Yes Medical History: Reports:: Arrhythmia, Atrial Fibrillation, Coronary Artery Disease, Diabetes Mellitus Type 2, Hyperlipidemia, Hypertension Denies:: Cancer, Diabetes Mellitus Type 1, Internal Pacemaker, MRSA, Seizures *Have you ever received a pneumonia vaccine?: Yes *Have you received a flu vaccine this season?: Yes Other Medical History: Denies: Blood Transfusion Reaction Anesthesia experience/problems:: no complications Other Surgeries: Yes: CABG (11/2017, 3 vessel bypass), Cardiac Surgery, Hysterectomy-Partial. No: Pacemaker Amputation: No Fractures: Yes (left foot) - *Social History Educational Level: Completed High School Smoking Status: Never smoker Alcohol Intake: never Alcohol Intake Frequency:: holidays/special occasions only Substance Use Type: denies use *Occupational Status:: retired Housing: house Household Members: spouse *Travel in the last 8 weeks: None Family Hx:: Cancer, Coronary Artery Disease Review of Systems - Review of Systems Review of systems:: pertinent systems reviewed and negative unless documented below - *Neurologic Reports numbness, Reports tingling/numbness/burning sensations, Reports tingling, Denies abnormal hearing, Denies behavioral changes, Denies weakness Meds Home Medications Medication Instructions Recorded Confirmed Type atorvastatin 80 mg tablet 80 mg PO HS tab 01/30/18 09/24/19 History Ertugliflozin Pidolate [Steglatro] 15 mg PO DAILY 09/14/19 09/24/19 History Insulin Glargine,Hum.rec.anlog 50 unit SQ PM 09/14/19 09/24/19 History [Priscila Nickerson U-100] glimepiride 4 mg tablet 4 mg PO DAILY tab 09/19/19 09/24/19 History oxycodone-acetaminophen 5 mg-325 1 tab PO Q6H PRN #24 tab 09/20/19 09/24/19 Rx mg tablet Aspirin [Aspirin 325mg Tab] 325 mg PO DAILY 09/23/19 09/24/19 History Ergocalciferol (Vitamin D2) 50,000 unit PO WEEKLY 09/23/19 09/25/19 History [Drisdol] Enoxaparin Sodium [Lovenox 40 mg SQ DAILY 09/25/19 09/25/19 History 40mg/0.4mL syringe] Metoprolol Tartrate [Lopressor 25 mg PO BID 09/25/19 09/25/19 History 25mg tablet] Ondansetron [Zofran 4mg ODT] 4 mg PO Q6HP PRN 09/25/19 09/25/19 History cephALEXin [Keflex 500mg Cap] 500 mg PO BID 09/25/19 09/24/19 History Allergies Allergy/AdvReac Type Severity Reaction Status Date / Time No Known Allergies Allergy Verified 09/24/19 08:12 Exam Vital signs and Labs for Last 24 Hours: Temp Pulse Resp BP Pulse Ox 97.7 F 66 19 170/71 H 94 L 09/25/19 08:00 09/25/19 08:00 09/25/19 08:00 09/25/19 08:00 09/25/19 08:00 Laboratory Results - last 24 hr 09/24/19 07:45: Urine Color Yellow, Urine Appearance Clear, Urine pH 6.0, Ur Specific [place] 1.020, Urine Protein Negative, Urine Glucose (UA) 3+, Urine Ketones Negative, Urine Blood Negative, Urine Nitrate Negative, Urine Bilirubin Negative, Urine Urobilinogen 0.2, Ur Leukocyte Esterase Negative, Urine RBC 3-5, Urine WBC 5-10, Ur Squamous Epith Cells 5-10, Urine Bacteria Trace 09/24/19 08:30: ESR 11 09/24/19 08:30: PT 10.3, INR 0.99 09/24/19 08:30: C-Reactive Protein 0.5 09/24/19 15:34: POC Glucose 99 09/24/19 21:02: POC Glucose 85 09/25/19 05:26: POC Glucose 93 09/25/19 07:43: WBC 10.3, RBC 4.21, Hgb 12.2, Hct 36.8 L, MCV 87.4, MCH 29.1, MCHC 33.3, RDW 14.9, Plt Count 263, MPV 8.0, Neut % (Auto) 75.5, Lymph % (Auto) 17.5, [place] % (Auto) 5.8, Eos % (Auto) 0.8, Baso % (Auto) 0.4, Neut # (Auto) 7.7, Lymph # (Auto) 1.8, [place] # (Auto) 0.6, Eos # (Auto) 0.1, Baso # (Auto) 0.0 09/25/19 07:43: Sodium 143, Potassium 4.0, Chloride 107, Carbon Dioxide 28, Anion Gap 12.0, BUN 17, Creatinine 0.89, Estimated Creat Clear 54, Estimated GFR 62, Est GFR ( Amer) 75, Glucose 90, Calcium 8.5, Total Bilirubin 0.4, AST 22, ALT 21, Alkaline Phosphatase 81, Total Protein 6.1 L, Albumin 2.9 L, Globulin 3.2, Albumin/Globulin Ratio 0.9 L I & O for Last 24 hours: Intake & Output 09/22/19 09/23/19 09/24/19 09/25/19 11:59 11:59 11:59 11:59 Intake Total 1800 / 1800 Output Total 770 / 770 Balance 1030 / 1030 Weight 144 lb 148 lb 1 oz Narrative: Patient is pleasant, alert, oriented x3. Oropharynx clear, no JVD. Heart rate regular. Lungs are clear and well-expanded. She is able to pull 1800 mL's on incentive spirometry. Abdomen soft nontender. No edema in her left leg. Right leg continues to be numb from her anesthesia block. In splint to the right leg. Toes are visible with no edema, good capillary refill in her toes. Internal Medicine - CN: Reslt - Labs CBC & Chem 7: 09/25/19 07:43 09/25/19 07:43 Labs: Short CBC 09/25/19 Range/Units 07:43 WBC 10.3 (4.8-10.8) K/mm3 Hgb 12.2 (12.2-16.2) g/dL Hct 36.8 L (37.0-47.0) % Plt Count 263 (142-424) K/mm3 BMP 09/25/19 07:43 Sodium 143 Potassium 4.0 Chloride 107 Carbon Dioxide 28 BUN 17 Creatinine 0.89 Glucose 90 Calcium 8.5 Liver Function 09/25/19 Range/Units 07:43 Total Bilirubin 0.4 (0.2-1.0) mg/dL AST 22 (15-37) U/L ALT 21 (12-78) U/L Alkaline Phosphatase 81 (46-116) U/L Albumin 2.9 L (3.4-5.0) gm/dL Urine 09/24/19 Range/Units 07:45 Urine Color Yellow (Yellow) Urine Appearance Clear (Clear) Urine pH 6.0 (5.0-8.5) Ur Specific [place] 1.020 (1.005-1.030) Urine Protein Negative (Negative) Urine Glucose (UA) 3+ (Negative) Assessment and Plan (1) Charcot's joint of right foot Current visit: Yes Status: Acute Category: Medical Code(s): M14.671 - Charcot's joint, right ankle and foot (2) Cardiovascular risk factor Current visit: No Status: Chronic Category: Medical Code(s): Z91.89 - Other specified personal risk factors, not elsewhere classified (3) Closed fracture of cuneiform of right foot Current visit: No Status: Acute Category: Medical (4) Closed right cuboid fracture Current visit: No Status: Acute Qualifiers: Encounter type: subsequent encounter Fracture alignment: nondisplaced Fracture healing: with routine healing Qualified Code(s): S92.214D - Nondisplaced fracture of cuboid bone of right foot, subsequent encounter for fracture with routine healing Category: Medical Code(s): S92.211A - Displaced fracture of cuboid bone of right foot, initial encounter for closed fracture (5) Closed right tarsal navicular fracture Current visit: No Status: Acute Qualifiers: Encounter type: subsequent encounter Fracture alignment: nondisplaced Fracture healing: with routine healing Qualified Code(s): S92.254D - Nondisplaced fracture of navicular [scaphoid] of right foot, subsequent encounter for fracture with routine healing Category: Medical Code(s): S92.251A - Displaced fracture of navicular [scaphoid] of right foot, initial encounter for closed fracture (6) Edema of right lower extremity Current visit: No Status: Acute Category: Medical Code(s): R60.0 - Localized edema (7) Foot pain, right Current visit: No Status: Acute Category: Medical Code(s): M79.671 - Pain in right foot (8) Multiple closed fractures of right foot Current visit: No Status: Acute Qualifiers: Encounter type: initial encounter Qualified Code(s): S92.901A - Unspecified fracture of right foot, initial encounter for closed fracture Category: Medical Code(s): S92.901A - Unspecified fracture of right foot, initial encounter for closed fracture (9) Right calcaneal fracture Current visit: No Status: Acute Qualifiers: Encounter type: initial encounter Calcaneus location: body Fracture type: closed Fracture alignment: displaced Qualified Code(s): S92.011A - Displaced fracture of body of right calcaneus, initial encounter for closed fracture Category: Medical Code(s): S92.001A - Unspecified fracture of right calcaneus, initial encounter for closed fracture (10) Diabetes Current visit: No Status: Chronic Qualifiers: Diabetes mellitus type: type 2 Diabetes mellitus intermediate accountant insulin use: with long-term use Diabetes mellitus complication status: with neurologic complications Diabetes mellitus complication detail: with polyneuropathy Qualified Code(s): E11.42 - Type 2 diabetes mellitus with diabetic polyneuropathy; 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) use of insulin Category: Medical Code(s): E11.9 - Type 2 diabetes mellitus without complications (11) HHD (hypertensive heart disease) Current visit: No Status: Chronic Qualifiers: Heart failure presence: without heart failure Qualified Code(s): I11.9 - Hypertensive heart disease without heart failure Category: Medical Code(s): I11.9 - Hypertensive heart disease without heart failure (12) HLD (hyperlipidemia) Current visit: No Status: Chronic Qualifiers: Hyperlipidemia type: mixed hyperlipidemia Qualified Code(s): E78.2 - Mixed hyperlipidemia Category: Medical Code(s): E78.5 - Hyperlipidemia, unspecified (13) Onychogryphosis Current visit: No Status: Chronic Category: Medical Code(s): L60.2 - Onychogryphosis (14) S/P CABG (coronary artery bypass graft) Current visit: No Status: Chronic Category: Surgical Code(s): Z95.1 - Presence of aortocoronary bypass graft (15) New onset atrial fibrillation Current visit: No Status: Resolved Category: Medical Code(s): I48.91 - Unspecified atrial fibrillation - Assessment and plan all Dx Assessment and Plan for all problems:: Overall doing very nicely. No change in plans. Doing well from a cardiopulmonary standpoint. Discussed incentive spirometry with patient. Continue current home medications
--- NOTE | 2019-09-25 10:21 | Consult Report ---
History of Present Illness Consult date: 09/25/19 Requesting physician: Eneida Noriega Consult reason: post-op evaluation Chief complaint: leg pain Additional Medical History:: 1. Coronary artery disease 2. Hypertension 3. Hyperlipidemia 4. Atrial fibrillation 5. diabetes History of present illness: This is a 74-year-old female who was admitted to the hospital following a debridement of a right lower extremity fracture. Following the procedure the patient had essentially no bleeding with the debridement and her foot turned dusky and cool during the procedure. The patient had a CTA of the lower extremity which does show some peripheral arterial disease and her right lower extremity with some significant stenosis. She denies any chest pain or pressure. She denies any shortness of breath or edema. She denies any fever, chills, nausea, vomiting, diarrhea, PND or orthopnea. The patient states that she was having some pain in the right lower extremity and some numbness. However right now her pain is under good control secondary to the nerve block she received for the debridement of the right lower extremity. The patient does report she has a history of coronary artery disease, hypertension, hyper lipidemia, diabetes and is status post coronary artery bypass grafting. She is not aware of having any blockages or procedures done on her lower extremities. This morning her foot still appears dusky and cool. She does have good cap refill. [facility] History I have reviewed the patient's past medical history: Yes Medical History: Reports:: Arrhythmia, Atrial Fibrillation, Coronary Artery Disease, Diabetes Mellitus Type 2, Hyperlipidemia, Hypertension Denies:: Cancer, Diabetes Mellitus Type 1, Internal Pacemaker, MRSA, Seizures *Have you ever received a pneumonia vaccine?: Yes *Have you received a flu vaccine this season?: Yes Other Medical History: Denies: Blood Transfusion Reaction Anesthesia experience/problems:: no complications Other Surgeries: Yes: CABG (11/2017, 3 vessel bypass), Cardiac Surgery, Hysterectomy-Partial. No: Pacemaker Amputation: No Fractures: Yes (left foot) - *Social History Educational Level: Completed High School Smoking Status: Never smoker Alcohol Intake: never Alcohol Intake Frequency:: holidays/special occasions only Substance Use Type: denies use *Occupational Status:: retired Housing: house Household Members: spouse *Travel in the last 8 weeks: None Family Hx:: Cancer, Coronary Artery Disease Meds Home Medications Medication Instructions Recorded Confirmed Type atorvastatin 80 mg tablet 80 mg PO HS tab 01/30/18 09/24/19 History Ertugliflozin Pidolate [Steglatro] 15 mg PO DAILY 09/14/19 09/24/19 History Insulin Glargine,Hum.rec.anlog 50 unit SQ PM 09/14/19 09/24/19 History [Basaglar Kwbethanypen U-100] glimepiride 4 mg tablet 4 mg PO DAILY tab 09/19/19 09/24/19 History oxycodone-acetaminophen 5 mg-325 1 tab PO Q6H PRN #24 tab 09/20/19 09/24/19 Rx mg tablet Aspirin [Aspirin 325mg Tab] 325 mg PO DAILY 09/23/19 09/24/19 History Ergocalciferol (Vitamin D2) 50,000 unit PO WEEKLY 09/23/19 09/25/19 History [Drisdol] Enoxaparin Sodium [Lovenox 40 mg SQ DAILY 09/25/19 09/25/19 History 40mg/0.4mL syringe] Metoprolol Tartrate [Lopressor 25 mg PO BID 09/25/19 09/25/19 History 25mg tablet] Ondansetron [Zofran 4mg ODT] 4 mg PO Q6HP PRN 09/25/19 09/25/19 History Oxycodone HCl/Acetaminophen 1 each PO Q4HP PRN #40 tab 09/25/19 Rx [Percocet 7.5/325mg tablet] Rivaroxaban [Xarelto 10mg tablet] 10 mg PO QPMWM #30 tab 09/25/19 Rx cephALEXin [Keflex 500mg Cap] 500 mg PO BID 09/25/19 09/24/19 History Allergies Allergy/AdvReac Type Severity Reaction Status Date / Time No Known Allergies Allergy Verified 09/24/19 08:12 Review of Systems - Review of Systems Review of systems:: pertinent systems reviewed and negative unless documented below - *Cardiovascular Comments: Dusky toes to the right foot. Right foot is cool to touch - *Musculoskeletal Reports joint pain (Right foot), Reports numbness (Right foot) - *Neurologic Reports numbness, Reports tingling/numbness/burning sensations, Reports tingling, Denies abnormal hearing, Denies behavioral changes, Denies weakness Exam Vital signs and Labs for Last 24 Hours: Temp Pulse Resp BP Pulse Ox 97.7 F 66 19 170/71 H 94 L 09/25/19 08:00 09/25/19 08:00 09/25/19 08:00 09/25/19 08:00 09/25/19 08:00 Laboratory Results - last 24 hr 09/24/19 07:45: Urine Color Yellow, Urine Appearance Clear, Urine pH 6.0, Ur Specific [place] 1.020, Urine Protein Negative, Urine Glucose (UA) 3+, Urine Ketones Negative, Urine Blood Negative, Urine Nitrate Negative, Urine Bilirubin Negative, Urine Urobilinogen 0.2, Ur Leukocyte Esterase Negative, Urine RBC 3-5, Urine WBC 5-10, Ur Squamous Epith Cells 5-10, Urine Bacteria Trace 09/24/19 15:34: POC Glucose 99 09/24/19 21:02: POC Glucose 85 09/25/19 05:26: POC Glucose 93 09/25/19 07:43: WBC 10.3, RBC 4.21, Hgb 12.2, Hct 36.8 L, MCV 87.4, MCH 29.1, MCHC 33.3, RDW 14.9, Plt Count 263, MPV 8.0, Neut % (Auto) 75.5, Lymph % (Auto) 17.5, [place] % (Auto) 5.8, Eos % (Auto) 0.8, Baso % (Auto) 0.4, Neut # (Auto) 7.7, Lymph # (Auto) 1.8, [place] # (Auto) 0.6, Eos # (Auto) 0.1, Baso # (Auto) 0.0 09/25/19 07:43: Sodium 143, Potassium 4.0, Chloride 107, Carbon Dioxide 28, Anion Gap 12.0, BUN 17, Creatinine 0.89, Estimated Creat Clear 54, Estimated GFR 62, Est GFR ( Amer) 75, Glucose 90, Calcium 8.5, Total Bilirubin 0.4, AST 22, ALT 21, Alkaline Phosphatase 81, Total Protein 6.1 L, Albumin 2.9 L, Globulin 3.2, Albumin/Globulin Ratio 0.9 L I & O for Last 24 hours: Intake & Output 09/22/19 09/23/19 09/24/19 09/25/19 23:59 23:59 23:59 23:59 Intake Total 1800 / 1800 Output Total 750 / 750 Balance 1780 / 1780 -750 / -750 Weight 144 lb 148 lb 1 oz - Constitutional no acute distress, average body habitus - *Routine HEENT Exam Head: Present: normocephalic, atraumatic Eye: Present: EOMI, PERRL ENT: Present: mucous membranes moist - *Routine Neck Exam Present: supple, full ROM, normal carotid upstroke. Absent: JVD, carotid bruit, lymphadenopathy - *Routine Respiratory Exam Present: CTA bilaterally - *Routine Cardiovascular Exam Present: RRR, Normal S1, Normal S2. Absent: murmur - *Routine Abdominal Exam Present: soft, normoactive bowel sounds. Absent: tenderness, distended - *Routine Extremities Exam Present: cyanosis (right foot), edema (right foot), full ROM (except RLE), pulses intact (unable to palpate RLE pulse due to dressing), normal capillary refill. Absent: clubbing - *Routine Skin Exam Present: warm. Absent: rash - *Routine Neurological Exam Present: alert, oriented X3, CN II-XII intact - Routine Psychiatric Exam Present: normal affect, normal thought process - Detailed Eye Exam Eyelids: Left normal inspection Assessment and Plan (1) Ischemic foot Current visit: Yes Status: Chronic Category: Medical Code(s): I99.8 - Other disorder of circulatory system (2) PAD (peripheral artery disease) Current visit: Yes Status: Acute Category: Medical Code(s): I73.9 - Peripheral vascular disease, unspecified (3) CAD (coronary artery disease) Current visit: No Status: Chronic Qualifiers: Coronary Disease-Associated Artery/Lesion type: bypass graft [place] vs. transplanted heart: [place] heart Associated angina: without angina Qualified Code(s): I25.810 - Atherosclerosis of coronary artery bypass graft(s) without angina pectoris Category: Medical Code(s): I25.10 - Atherosclerotic heart disease of [place] coronary artery without angina pectoris (4) Charcot's joint of right foot Current visit: Yes Status: Acute Category: Medical Code(s): M14.671 - Charcot's joint, right ankle and foot (5) Closed fracture of cuneiform of right foot Current visit: No Status: Acute Category: Medical (6) Closed right cuboid fracture Current visit: No Status: Acute Qualifiers: Encounter type: subsequent encounter Fracture alignment: nondisplaced Fracture healing: with routine healing Qualified Code(s): S92.214D - Nondisplaced fracture of cuboid bone of right foot, subsequent encounter for fracture with routine healing Category: Medical Code(s): S92.211A - Displaced fracture of cuboid bone of right foot, initial encounter for closed fracture (7) Closed right tarsal navicular fracture Current visit: No Status: Acute Qualifiers: Encounter type: subsequent encounter Fracture alignment: nondisplaced Fracture healing: with routine healing Qualified Code(s): S92.254D - Nondisplaced fracture of navicular [scaphoid] of right foot, subsequent encounter for fracture with routine healing Category: Medical Code(s): S92.251A - Displaced fracture of navicular [scaphoid] of right foot, initial encounter for closed fracture (8) Edema of right lower extremity Current visit: No Status: Acute Category: Medical Code(s): R60.0 - Localized edema (9) Foot pain, right Current visit: No Status: Acute Category: Medical Code(s): M79.671 - Pain in right foot (10) Multiple closed fractures of right foot Current visit: No Status: Acute Qualifiers: Encounter type: initial encounter Qualified Code(s): S92.901A - Unspecified fracture of right foot, initial encounter for closed fracture Category: Medical Code(s): S92.901A - Unspecified fracture of right foot, initial encounter for closed fracture (11) Right calcaneal fracture Current visit: No Status: Acute Qualifiers: Encounter type: initial encounter Calcaneus location: body Fracture type: closed Fracture alignment: displaced Qualified Code(s): S92.011A - Displaced fracture of body of right calcaneus, initial encounter for closed fracture Category: Medical Code(s): S92.001A - Unspecified fracture of right calcaneus, initial encounter for closed fracture (12) Diabetes Current visit: No Status: Chronic Qualifiers: Diabetes mellitus type: type 2 Diabetes mellitus senior care insulin use: with ocean transportation intermediary use Diabetes mellitus complication status: with neurologic complications Diabetes mellitus complication detail: with polyneuropathy Qualified Code(s): E11.42 - Type 2 diabetes mellitus with diabetic polyneuropathy; Z79.4 - exterminator helper termite (current) use of insulin Category: Medical Code(s): E11.9 - Type 2 diabetes mellitus without complications (13) HHD (hypertensive heart disease) Current visit: No Status: Chronic Qualifiers: Heart failure presence: without heart failure Qualified Code(s): I11.9 - Hypertensive heart disease without heart failure Category: Medical Code(s): I11.9 - Hypertensive heart disease without heart failure (14) HLD (hyperlipidemia) Current visit: No Status: Chronic Qualifiers: Hyperlipidemia type: mixed hyperlipidemia Qualified Code(s): E78.2 - Mixed hyperlipidemia Category: Medical Code(s): E78.5 - Hyperlipidemia, unspecified (15) Onychogryphosis Current visit: No Status: Chronic Category: Medical Code(s): L60.2 - Onychogryphosis (16) S/P CABG (coronary artery bypass graft) Current visit: No Status: Chronic Category: Surgical Code(s): Z95.1 - Presence of aortocoronary bypass graft - Assessment and plan all Dx Assessment and Plan for all problems:: Plan: 1. The patient was mated to the hospital after a debridement with Dr. Noriega on her right lower extremity. The patient had no bleeding and her foot turned dusky and cool. The patient had a CTA of the lower extremity which showed some diffuse peripheral arterial disease. Given the patient's cold foot and dusky appearance in the setting of peripheral arterial disease, we will plan to proceed with right lower extremity runoff to evaluate for peripheral arterial disease. 2. The patient has been educated the risk and benefits of proceeding with right lower extremity runoff. The patient is verbalized understanding and is agreeable in proceeding with the procedure. 3. The patient will get IV fluids and premedications prior to the procedure. 4. The patient does have a history of coronary artery disease. She denies any chest pain or pressure at this time. No plans for invasive left cardiac catheterization at this time. 5. Her blood pressure is elevated this morning but it has been under good control. We will continue to follow and make adjustments if necessary. 6. Her LDL goal is less than 55. 7. The patient does have a history of diabetes. She does need aggressive control of her diabetes. Will defer this to her primary care provider. 8. Further recommendations were made pending the patient's response to treatment and the results of her right lower extremity runoff later today. Thank you for the opportunity to help participate in the care of this patient.
[2019-09-26 07:42] LABS: Basophils % 0.3 % (0.1-2.0); Eosinophils # 0.2 K/mm3 (0.0-0.4); Eosinophils % 2.5 % (0.1-12.0); Hematocrit 37.2 % (37.0-47.0); Hemoglobin 11.9 g/dL (12.2-16.2); Lymphocytes # 1.7 K/mm3 (0.7-4.5); Lymphocytes % 17.1 % (10-50); Mean Corpuscular HGB Conc 32.1 g/dL (31.8-35.4); Mean Corpuscular Volume 89.5 fl (81-99); Mean Platelet Volume 8.2 fl (7.4-10.4); Monocytes # 0.4 K/mm3 (0.1-1.0); Monocytes % 4.5 % (1.7-9.3); Neutrophils # 7.3 K/mm3 (1.8-7.8); Neutrophils % 75.5 % (37.0-80.0); Platelet Count 250 K/mm3 (142-424); Red Blood Count 4.15 M/mm3 (4.20-5.40); White Blood Count 9.7 K/mm3 (4.8-10.8)
[2019-09-26 08:04] LABS: Albumin Level 2.8 gm/dL (3.4-5.0); Albumin/Globulin Ratio 0.9 (1.1-1.8); Anion Gap 14.1 mEq/L (5-15); Bilirubin,Total 0.7 mg/dL (0.2-1.0); Calcium 8.1 mg/dL (8.5-10.1); Globulin 3.2 gm/dl (1.3-3.2)
--- NOTE | 2019-09-26 08:52 | Progress Note ---
Subjective Date: 09/26/19 Time: 07:55 Principal diagnosis: Right calcaneal fracture, DM Charcot Interval history: Patient is resting comfortably in bed this morning. She reports some pain but controlled medication and increased feeling to the lower extremity secondary to nerve block. She denies nausea vomiting, fever chills, shortness of breath and chest pain. We discussed the CTA procedure after surgery 09/24/19 and the runoff procedure with Dr. Grajeda yesterday based on his note. PN: Obj Ex Vital signs: Temp Pulse Resp BP Pulse Ox 98.2 F 71 16 178/65 H 93 L 09/26/19 04:00 09/26/19 04:00 09/26/19 04:00 09/26/19 04:00 09/26/19 04:00 - Constitutional no acute distress - Routine HEENT Exam Head: Present: normocephalic - Routine Neck Exam Present: supple - Routine Respiratory Exam Present: CTA bilaterally. Absent: respiratory distress - Routine Cardiovascular Exam Present: RRR - Routine Abdominal Exam Present: soft - Routine Extremities Exam Present: normal capillary refill. Absent: calf tenderness, extremity cold to touch - Detailed Lower Extremity Exam Comments: Right lower extremity dressing and splint clean dry and intact. Mild strikethrough to the heel. Cap fill time within normal limits. Mild discoloration noted to the dorsal right foot extending to the second MPJ level. Light touch sensation and motor function at baseline. No calf or the thigh pain noted bilaterally. - Routine Skin Exam Present: intact, dry, pallor - Routine Neurological Exam Present: alert - Routine Psychiatric Exam Present: normal affect - Urinary Catheter Management Mixon Cath placed during this visit: no Progress Note: A&P (1) Ischemic foot Status: Chronic Current Visit: Yes (2) PAD (peripheral artery disease) Status: Acute Current Visit: Yes (3) CAD (coronary artery disease) Status: Chronic Current Visit: No (4) Charcot's joint of right foot Status: Acute Current Visit: Yes (5) Closed fracture of cuneiform of right foot Status: Acute Current Visit: No (6) Closed right cuboid fracture Status: Acute Current Visit: No (7) Closed right tarsal navicular fracture Status: Acute Current Visit: No (8) Edema of right lower extremity Status: Acute Current Visit: No (9) Foot pain, right Status: Acute Current Visit: No (10) Multiple closed fractures of right foot Status: Acute Current Visit: No (11) Right calcaneal fracture Status: Acute Current Visit: No (12) Diabetes Status: Chronic Current Visit: No (13) HHD (hypertensive heart disease) Status: Chronic Current Visit: No (14) HLD (hyperlipidemia) Status: Chronic Current Visit: No (15) Onychogryphosis Status: Chronic Current Visit: No (16) S/P CABG (coronary artery bypass graft) Status: Chronic Current Visit: No Assessment and Plan for All Diagnoses:: 09/25/19, PROCEDURE via Dr. Grajeda: Right radial arterial access Catheter placement in the right common iliac artery Right common iliac artery antegrade angiogram with unilateral runoff to the right foot Catheter placement in the distal abdominal aorta Distal abdominal aortography. PLAN 1. I recommend medical management at this time. As long as patient is healing the surgical incision I would not recommend revascularizing the posterior tibialis artery. While angioplasty can be performed in the event of a poorly healing lower extremity ulcer or surgical wound, the long-term patency of an angioplasty in this vessel is quite poor. Patient would have much greater long- term patency without manipulating the posterior tibialis artery with angioplasty. Should patient experience poorly healing ulcers or surgical wound then I would proceed with angioplasty of the posterior tibialis artery in order to foster healing etc. 2. I recommend medical management Xarelto 2.5 twice daily plus aspirin 81 mg daily for peripheral artery disease Reviewed the runoff exam from yesterday the Dr. Grajeda performed with the patient and her . For now we will leave the wound graft and dressing intact. Patient will follow-up on Monday to have a dressing change. She is to keep this elevated. Nonweightbearing. And likely discharge home today. Patient is to maintain dressing clean dry and intact. Ice behind the knee, polar pack for pain. NWB to RLE with DME assistance (walker, wheelchair). Follow up with PCP: Dr. Wolfe or Dr. Jean for medical mgmt of insulin, IV fluids, cardiac meds and blood pressure. Follow up with Cardio: Dr. Grajeda for CAD, arrhythmia and A. fib. And follow- up with abnormal runoff and cath placement. Plan to d/c to home after PT session.
--- NOTE | 2019-09-26 10:35 | Progress Note ---
Subjective Date: 09/26/19 Time: 10:31 Principal diagnosis: Right calcaneal fracture, DM Charcot Interval history: 74 yo WF in bed in NAD. Right foot wrapped in gauze but toes appear less purplish and pt is able to move them. She is scheduled for discharge today. Exam Vital signs and Labs for Last 24 Hours: Temp Pulse Resp BP Pulse Ox 98.2 F 71 16 178/65 H 93 L 09/26/19 04:00 09/26/19 04:00 09/26/19 04:00 09/26/19 04:00 09/26/19 04:00 Laboratory Results - last 24 hr 09/26/19 07:25: WBC 9.7, RBC 4.15 L, Hgb 11.9 L, Hct 37.2, MCV 89.5, MCH 28.8, MCHC 32.1, RDW 15.0, Plt Count 250, MPV 8.2, Neut % (Auto) 75.5, Lymph % (Auto) 17.1, Buchanan % (Auto) 4.5, Eos % (Auto) 2.5, Baso % (Auto) 0.3, Neut # (Auto) 7.3, Lymph # (Auto) 1.7, Buchanan # (Auto) 0.4, Eos # (Auto) 0.2, Baso # (Auto) 0.0 09/26/19 07:25: Sodium 141, Potassium 4.1, Chloride 106, Carbon Dioxide 25, Anion Gap 14.1, BUN 16, Creatinine 0.74, Estimated Creat Clear 54, Estimated GFR 77, Est GFR ( Amer) 93 D, Glucose 95, Calcium 8.1 L, Total Bilirubin 0.7, AST 26, ALT 16, Alkaline Phosphatase 84, Total Protein 6.0 L, Albumin 2.8 L , Globulin 3.2, Albumin/Globulin Ratio 0.9 L I & O for Last 24 hours: Intake & Output 09/23/19 09/24/19 09/25/19 09/26/19 11:59 11:59 11:59 11:59 Intake Total 2040 / 2040 1280 / 1280 Output Total 770 / 770 625 / 625 Balance 1270 / 1270 655 / 655 Weight 144 lb 148 lb 1 oz 148 lb 0.999 oz - *Routine Respiratory Exam Present: CTA bilaterally. Absent: accessory muscle use, rales, rhonchi, wheezes - *Routine Cardiovascular Exam Present: RRR. Absent: murmur, gallop, rubs - *Routine Extremities Exam Absent: edema, calf tenderness Comments: Foot is warmer than yesterday with less discoloration. Progress Note: A&P (1) Charcot's joint of right foot Status: Acute Current Visit: Yes (2) Cardiovascular risk factor Status: Chronic Current Visit: No (3) Closed fracture of cuneiform of right foot Status: Acute Current Visit: No (4) Closed right cuboid fracture Status: Acute Current Visit: No (5) Closed right tarsal navicular fracture Status: Acute Current Visit: No (6) Edema of right lower extremity Status: Acute Current Visit: No (7) Foot pain, right Status: Acute Current Visit: No (8) Multiple closed fractures of right foot Status: Acute Current Visit: No (9) Right calcaneal fracture Status: Acute Current Visit: No (10) Diabetes Status: Chronic Current Visit: No (11) HHD (hypertensive heart disease) Status: Chronic Current Visit: No (12) HLD (hyperlipidemia) Status: Chronic Current Visit: No (13) Onychogryphosis Status: Chronic Current Visit: No (14) S/P CABG (coronary artery bypass graft) Status: Chronic Current Visit: No Assessment and Plan for All Diagnoses:: 1. OK for discharge from cardiovascular standpoint. 2. Will give samples of Xarelto 2.5mg BID to start after lovenox injections. Continue ASA 325 mg daily but consider reducing to 81 mg daily in future. 3. Follow up in 2 wks.
== END 2019-09-26 12:40 | disposition home health service (06) ==
LOC: 2ND 07:51 → OR 07:51 → 2ND 17:48 → OB 09-25 11:41
PROVIDERS: ADMIT Podiatrist; ATTEND Podiatrist
CPT/HCPCS: 36245; 36415; 73620; 73630; 73650; 73701; 75710; 76000; 80053; 81001; 82962; 85025; 85610; 85651; 86140; 96374; 97162; 99152; 99153; C1713; C1725; C1762; C1769; C1776; G0378; J1644; J2405; Q4110; Q9966; Q9967

== ENCOUNTER → 2019-10-15 09:43 | Outpatient (CLI) | payer MEDICARE, SELFPAY ==
--- NOTE | 2019-10-15 09:50 | XR_ITS ---
PROCEDURE: XR FOOT LT MIN 3V CLINICAL INDICATION: Post op Follow-up ORIF COMPARISON: XR FOOT RT MIN 3V from 09/13/2019 XR FOOT RT MIN 3V from 09/24/2019 FINDINGS: Status post calcaneal ORIF and posterior midfoot fusion with medial and lateral bone plates as well as calcaneal talar and calcaneal cuboid screws. These remain in place with no F evidence orthopedic complication. There is a posterior splint in place. Other findings:None. IMPRESSION: Postsurgical changes of the right foot with overall no significant change Dictated by: Sharan Tsai MD 10/15/2019 11:53 Electronically signed by Sharan Tsai MD in [place] 10/15/2019 11:53
== END ==
PROVIDERS: PCP Internal Medicine; Visit Provider Podiatrist
DX: Z98.890 Other specified postprocedural states (principal); E11.610 Type 2 diabetes mellitus with diabetic neuropathic arthropathy; Z79.4 Long term (current) use of insulin
CPT/HCPCS: 73630

== ENCOUNTER → 2019-10-22 14:35 | Outpatient (CLI) | payer MEDICARE, SELFPAY ==
[2019-10-22 14:45] LABS: Basophils # 0.1 K/mm3 (0-0.2); Basophils % 0.5 % (0.1-2.0); Eosinophils # 0.2 K/mm3 (0.0-0.4); Eosinophils % 2.2 % (0.1-12.0); Hematocrit 41.5 % (37.0-47.0); Hemoglobin 13.5 g/dL (12.2-16.2); Lymphocytes # 1.7 K/mm3 (0.7-4.5); Lymphocytes % 20.3 % (10-50); Mean Corpuscular HGB Conc 32.6 g/dL (31.8-35.4); Mean Corpuscular Hemoglobin 28.7 pg (27.0-31.2); Mean Corpuscular Volume 88.1 fl (81-99); Mean Platelet Volume 8.3 fl (7.4-10.4); Monocytes # 0.4 K/mm3 (0.1-1.0); Monocytes % 4.7 % (1.7-9.3); Neutrophils # 6.2 K/mm3 (1.8-7.8); Neutrophils % 72.2 % (37.0-80.0); Platelet Count 293 K/mm3 (142-424); Red Blood Count 4.71 M/mm3 (4.20-5.40); White Blood Count 8.5 K/mm3 (4.8-10.8)
[2019-10-22 15:21] LABS: Hemoglobin A1C 6.4 % (4.0-6.0)
[2019-10-22 15:25] LABS: Erythrocyte Sedimentation Rate 16 mm/hr (0-30)
[2019-10-22 16:42] LABS: Chloride 103 mmol/L (98-107); Potassium 4.8 mmoL/L (3.5-5.1); Sodium 139 mmol/L (136-145)
[2019-10-22 16:45] LABS: Alanine Aminotransferase 15 U/L (12-78); Albumin/Globulin Ratio 1.4 (1.1-1.8); Alkaline Phosphatase 86 U/L (38-126); Anion Gap 14.8 mEq/L (5-15); Aspartate Amino Transferase 25 U/L (14-36); Bilirubin,Total 0.5 mg/dl (0.2-1.3); Blood Urea Nitrogen 19 mg/dl (7-17); Calcium 9.6 mg/dl (8.4-10.2); Carbon Dioxide 26 mmol/L (22.0-30.0); Estimated Glomerular Filt Rate 71 ml/min (>60); GFR (African American) 85 ML/MIN (>60); Globulin 2.8 g/dL (1.3-3.2); Glucose 77 mg/dl (74-100); Total Protein,Serum 6.8 g/dl (6.3-8.2)
[2019-10-22 21:59] LABS: C-Reactive Protein 1.3 mg/L (0-4)
== END ==
PROVIDERS: Visit Provider Podiatrist
DX: S92.901K Unspecified fracture of right foot, subsequent encounter for fracture with nonunion; S92.901A Unspecified fracture of right foot, initial encounter for closed fracture; E11.610 Type 2 diabetes mellitus with diabetic neuropathic arthropathy; Z98.890 Other specified postprocedural states; Z79.4 Long term (current) use of insulin
CPT/HCPCS: 80053; 83036; 85025; 85651; 86140; 87070; 87077; 87186; 87205

== ENCOUNTER → 2019-11-04 08:47 | Outpatient (CLI) | payer MEDICARE, SELFPAY ==
--- NOTE | 2019-11-04 08:53 | XR_ITS ---
PROCEDURE: XR FOOT WT BEARING RT 3V CLINICAL INDICATION: postop views Follow-up pain and swelling, surgery COMPARISON: XR FOOT RT MIN 3V from 09/13/2019 XR FOOT RT MIN 3V from 09/24/2019 XR FOOT LT MIN 3V from 10/15/2019 FINDINGS: The splint has been removed. Bony hardware remains in place with good alignment and no obvious orthopedic complications. IMPRESSION: Postsurgical changes of the right foot appear stable Dictated by: Sharan Tsai MD 11/04/2019 09:53 Electronically signed by Sharan Tsai MD in [place] 11/04/2019 09:53
== END ==
PROVIDERS: PCP Internal Medicine; Visit Provider Podiatrist
DX: Z98.890 Other specified postprocedural states (principal)
CPT/HCPCS: 73630

== ENCOUNTER → 2019-11-04 12:17 | Outpatient (CLI) | payer MEDICARE, SELFPAY ==
[2019-11-04 13:19] LABS: Basophils % 0.4 % (0.1-2.0); Eosinophils # 0.2 K/mm3 (0.0-0.4); Eosinophils % 2.5 % (0.1-12.0); Hematocrit 45.3 % (37.0-47.0); Hemoglobin 14.3 g/dL (12.2-16.2); Lymphocytes # 1.9 K/mm3 (0.7-4.5); Lymphocytes % 20.8 % (10-50); Mean Corpuscular HGB Conc 31.6 g/dL (31.8-35.4); Mean Corpuscular Hemoglobin 27.8 pg (27.0-31.2); Mean Corpuscular Volume 88.1 fl (81-99); Mean Platelet Volume 8.1 fl (7.4-10.4); Monocytes # 0.4 K/mm3 (0.1-1.0); Monocytes % 4.7 % (1.7-9.3); Neutrophils # 6.5 K/mm3 (1.8-7.8); Neutrophils % 71.7 % (37.0-80.0); Platelet Count 253 K/mm3 (142-424); Red Blood Count 5.14 M/mm3 (4.20-5.40); Red Cell Distribution Width 15.1 % (11.5-17.5)
[2019-11-04 14:03] LABS: Erythrocyte Sedimentation Rate 5 mm/hr (0-30)
[2019-11-04 16:36] LABS: Alanine Aminotransferase 28 U/L (12-78); Albumin Level 3.9 g/dl (3.5-5.0); Albumin/Globulin Ratio 1.4 (1.1-1.8); Alkaline Phosphatase 71 U/L (38-126); Anion Gap 11.5 mEq/L (5-15); Aspartate Amino Transferase 37 U/L (14-36); Bilirubin,Total 0.4 mg/dl (0.2-1.3); Blood Urea Nitrogen 16 mg/dl (7-17); Calcium 9.6 mg/dl (8.4-10.2); Carbon Dioxide 28 mmol/L (22.0-30.0); Chloride 103 mmol/L (98-107); Estimated Glomerular Filt Rate 82 ml/min (>60); GFR (African American) 100 ML/MIN (>60); Globulin 2.8 g/dL (1.3-3.2); Glucose 120 mg/dl (74-100); Potassium 4.5 mmoL/L (3.5-5.1); Sodium 138 mmol/L (136-145); Total Protein,Serum 6.7 g/dl (6.3-8.2)
[2019-11-04 16:44] LABS: C-Reactive Protein 0.3 mg/L (0-4)
== END ==
PROVIDERS: Visit Provider Podiatrist
DX: Z98.890 Other specified postprocedural states (principal); L60.3 Nail dystrophy; T81.89XA Other complications of procedures, not elsewhere classified, initial encounter
CPT/HCPCS: 36415; 73630; 80053; 85025; 85651; 86140; 87070; 87077; 87205

== ENCOUNTER 2019-11-22 08:33 | Day surgery (SDC) | payer MEDICARE, SELFPAY ==
[2019-11-22] VITALS (46 sets, daily range): BP systolic 97–214; BP diastolic 59–104; PULSE 69–97; RESP 15–20; TEMP 36.3–36.8; O2SAT 91–98; BMI 25.6
--- NOTE | 2019-11-22 | IR_ITS ---
APPROVED REPORT Patient Location: Outpatient PROCEDURES Right superficial femoral arterial access Right femoral vein access Right posterior tibialis artery and right PT trunk artery angiography Drug-eluting stent deployment to the PT trunk Angioplasty to the mid and proximal posterior tibialis artery INDICATION Limb threatening ischemia, Poorly healing lower extremity ulcer in a postoperative state Informed consent was obtained prior to the procedure. COMPLICATIONS NONE Estimated Blood Loss: LESS THAN 10 ML TECHNIQUE The patient was placed on the table with the head in the normal feet area of the table in preparation for an antegrade stick into the right femoral artery. 1% lidocaine was used anesthetize the right groin and the right femoral artery and vein were accessed via the Salinger technique with a 4 Tamazight sheath placed in the vein and a 5 Tamazight sheath was placed in the artery in an antegrade manner. Therapeutic heparin was administered. A Choice PT extra-support wire was placed into the posterior tibialis artery and a 3.5 x 15 mm resolute macario stent was deployed at 14 marco antonio reducing the stenosis to 0%. Following this a 3 mm x 30 mm coronary balloon was deployed at 12 marco antonio for 1 minute intervals on 4 separate inflations each time the balloon was pulled back to barely overlap with the proximal portion of the previous inflation. At the end of the procedure the posterior tibialis artery was widely patent with excellent antegrade flow into the right foot. At the end of the procedure the apparatus was removed the patient was transferred to the postop holding in stable condition for sheath removal ANGIOGRAPHIC RESULTS The PT trunk has a concentric 70 to 80% stenosis The posterior tibialis artery is widely patent proximal segment and has mid vessel high-grade stenoses in excess of 80 and 90%. At the end of the procedure the posterior tibialis artery was widely patent with excellent antegrade flow into the right foot IMPRESSION Aspirin and Plavix LDL less than 55 Rehabilitation Risk factor modification Electronically signed by : Joseph Grajeda, 11/22/2019 12:10:54
[2019-11-22 09:13] LABS: Basophils % 0.6 % (0.1-2.0); Eosinophils # 0.2 K/mm3 (0.0-0.4); Eosinophils % 3.2 % (0.1-12.0); Hematocrit 43.4 % (37.0-47.0); Hemoglobin 14.3 g/dL (12.2-16.2); Lymphocytes # 2.1 K/mm3 (0.7-4.5); Lymphocytes % 27.9 % (10-50); Mean Corpuscular Hemoglobin 28.6 pg (27.0-31.2); Mean Corpuscular Volume 86.9 fl (81-99); Mean Platelet Volume 7.7 fl (7.4-10.4); Monocytes # 0.4 K/mm3 (0.1-1.0); Monocytes % 5.8 % (1.7-9.3); Neutrophils # 4.7 K/mm3 (1.8-7.8); Neutrophils % 62.5 % (37.0-80.0); Platelet Count 260 K/mm3 (142-424); Red Cell Distribution Width 15.3 % (11.5-17.5); White Blood Count 7.5 K/mm3 (4.8-10.8)
[2019-11-22 09:29] LABS: Chloride 105 mmol/L (98-107)
[2019-11-22 09:30] LABS: Potassium 4.1 mmoL/L (3.5-5.1); Sodium 137 mmol/L (136-145)
[2019-11-22 09:33] LABS: Anion Gap 12.1 mEq/L (5-15); Blood Urea Nitrogen 18 mg/dl (7-17); Calcium 9.4 mg/dl (8.4-10.2); Carbon Dioxide 24 mmol/L (22.0-30.0); Creatinine Clearance Estimated 51 mL/min (50-200); Estimated Glomerular Filt Rate 71 ml/min (>60); GFR (African American) 85 ML/MIN (>60); Glucose 125 mg/dl (74-100)
[2019-11-22 14:00] LABS: CATHL Activated Clotting Time 270 SEC (74-125)
--- NOTE | 2019-11-22 15:10 | HMH.PHACLD ---
Henny Mckinnon has received discharge medication counseling on the following medications: PLAVIX 75MG PATIENT IS TO CONTINUE ALL OTHER HOME MEDICATIONS AT THIS TIME. PATIENT VERBALIZED UNDERSTANDING AND HAD NO QUESTIONS AT THIS TIME. -LALY VILLALOBOS, JAMEELD
--- NOTE | 2019-11-22 17:05 | PC.NURSE ---
PT WAS DISCHARGED HOME AT 1700. VS AT DISCHARGE BP 132/63. HR 86. O2 SATURATION 98% RA. DRESSING TO THE RT GROIN C/D/I. NO HEMATOMA NOTED. PT NEEDED A ONE TIME DOSE OF PAIN MEDICATION FOR DISCOMFORT OF THE RT FOOT.
[2019-11-25 13:38] LABS: CATHL Activated Clotting Time 257 SEC (74-125)
[2019-11-25 13:39] LABS: CATHL Activated Clotting Time 147 SEC (74-125)
== END 2019-11-22 17:00 | disposition home or self-care (01) ==
LOC: CATHLAB 08:34 → 2ND 14:49
PROVIDERS: PCP Internal Medicine; Visit Provider Internal Medicine
DX: I25.810 Atherosclerosis of coronary artery bypass graft(s) without angina pectoris (principal); E11.51 Type 2 diabetes mellitus with diabetic peripheral angiopathy without gangrene; I70.213 Atherosclerosis of native arteries of extremities with intermittent claudication, bilateral legs; I70.235 Atherosclerosis of native arteries of right leg with ulceration of other part of foot; L97.518 Non-pressure chronic ulcer of other part of right foot with other specified severity; I25.10 Atherosclerotic heart disease of native coronary artery without angina pectoris; Z79.4 Long term (current) use of insulin; Z88.8 Allergy status to other drugs, medicaments and biological substances; Z79.899 Other long term (current) drug therapy; I11.9 Hypertensive heart disease without heart failure; Z95.1 Presence of aortocoronary bypass graft; E11.42 Type 2 diabetes mellitus with diabetic polyneuropathy
CPT/HCPCS: 37230; 80048; 85025; 85347; 99152; 99153; C1725; C1769; C1874; C1894; J1644; J2720; Q9966

== ENCOUNTER 2019-12-04 06:00 | Day surgery (SDC) | payer MEDICARE, SELFPAY ==
[2019-12-03 10:34] VITALS: BMI 25.6
[2019-12-04] VITALS (11 sets, daily range): BP systolic 124–180; BP diastolic 64–86; PULSE 62–87; RESP 16–18; TEMP 36.2–43; O2SAT 90–98
[2019-12-04 06:34] LABS: POC Glucose,Bedside 108 (70-110)
--- NOTE | 2019-12-04 06:51 | HMH.ANESCL ---
[facility] Anesthesia Checklist - Patient Identification Patient Identification: Arm Band, Verbal (Name & ) - Structural Data Admitted From: Home Planned Operative Procedure/s: foot debridement Consent for Planned Operative Procedure(s) Verified: Yes Verified Documents: History and Physical - NPO Status Verified Time NPO: 00:00 - Additional verifications Patient : No Anesthesia Reactions: No Hx Blood Transfusions: No Blood Transfusion Reaction: No Cephalosporin Allergy: No Previous Colonoscopy: No - Cardiovascular Assessment Heart Sounds: S1 & S2 Pulse Strength: Baseline Pulse Rhythm: Regular Peripheral Edema: No - Airway Assessment C-Spine Mobility Assessed: Yes TMJ Mobility Assessed: Yes Dentition: Edentulous - Neurological Assessment Level of Consciousness: Awake, Alert, Appropriate Hx Seizures: No Numbness or tingling in extremities: No - Anesthesia Plan Anesthesia Risk discussed: Yes Anesthesia Plan: Verified ASA Class: III Anesthesia Type: General w/block [facility] History I have reviewed the patient's past medical history: Yes Medical History: Reports:: Arrhythmia, Atrial Fibrillation, Coronary Artery Disease, Diabetes Mellitus Type 2, Hyperlipidemia, Hypertension Denies:: Cancer, Diabetes Mellitus Type 1, Internal Pacemaker, MRSA, Seizures *Have you ever received a pneumonia vaccine?: Yes *Have you received a flu vaccine this season?: Yes Other Medical History: Denies: Blood Transfusion Reaction Anesthesia experience/problems:: none Laterality Cases: Right: Other Other Surgeries: Yes: CABG (11/2017, 3 vessel bypass), Cardiac Catheterization, Cardiac Surgery, Hysterectomy-Partial, Other. No: Pacemaker Amputation: No Fractures: Yes (left foot) - *Social History Educational Level: Attended High School Smoking Status: Never smoker Alcohol Intake: current Alcohol Intake Frequency:: holidays/special occasions only Substance Use Type: denies use *Occupational Status:: retired Housing: house Household Members: spouse *Travel in the last 8 weeks: None Family Hx:: Unable to obtain
[2019-12-04 06:54] LABS: C-Reactive Protein 0.8 mg/L (0-4)
[2019-12-04 07:00] LABS: Chloride 102 mmol/L (98-107); Potassium 4.1 mmoL/L (3.5-5.1); Sodium 138 mmol/L (136-145)
[2019-12-04 07:01] LABS: Erythrocyte Sedimentation Rate 11 mm/hr (0-30)
[2019-12-04 07:03] LABS: Alanine Aminotransferase 23 U/L (12-78); Albumin Level 4.2 g/dl (3.5-5.0); Albumin/Globulin Ratio 1.4 (1.1-1.8); Alkaline Phosphatase 79 U/L (38-126); Anion Gap 13.1 mEq/L (5-15); Aspartate Amino Transferase 31 U/L (14-36); Bilirubin,Total 0.5 mg/dl (0.2-1.3); Blood Urea Nitrogen 14 mg/dl (7-17); Calcium 9.7 mg/dl (8.4-10.2); Carbon Dioxide 27 mmol/L (22.0-30.0); Creatinine Clearance Estimated 51 mL/min (50-200); Estimated Glomerular Filt Rate 71 ml/min (>60); GFR (African American) 85 ML/MIN (>60); Globulin 3.1 g/dL (1.3-3.2); Glucose 118 mg/dl (74-100); Total Protein,Serum 7.3 g/dl (6.3-8.2)
[2019-12-04 07:06] LABS: Basophils # 0.1 K/mm3 (0-0.2); Basophils % 0.7 % (0.1-2.0); Eosinophils # 0.3 K/mm3 (0.0-0.4); Hematocrit 44.1 % (37.0-47.0); Hemoglobin 13.9 g/dL (12.2-16.2); Lymphocytes # 2.1 K/mm3 (0.7-4.5); Mean Corpuscular HGB Conc 31.5 g/dL (31.8-35.4); Mean Corpuscular Hemoglobin 27.9 pg (27.0-31.2); Mean Corpuscular Volume 88.5 fl (81-99); Mean Platelet Volume 7.4 fl (7.4-10.4); Monocytes # 0.5 K/mm3 (0.1-1.0); Monocytes % 5.3 % (1.7-9.3); Neutrophils # 5.5 K/mm3 (1.8-7.8); Platelet Count 252 K/mm3 (142-424); Red Blood Count 4.98 M/mm3 (4.20-5.40); Red Cell Distribution Width 15.8 % (11.5-17.5); White Blood Count 8.4 K/mm3 (4.8-10.8)
--- NOTE | 2019-12-04 07:20 | HMH.OPNOTE ---
Date of procedure: 12/04/19 Pre-op Diagnosis:: 1. Right posterior ankle wound (wound dehiscense, exposed Achilles) 2. Right post op surgical foot wound dehiscence 3. Peripheral arterial disease 4. Diabetes, Charcot neuroarthropathy 09/24/19: s/p 1. Right ORIF calcaneus, navicular, cunieform, cuboid, 2. Right foot Charcot reconstruction: NC arthrodesis, 3. Triple arthrodesis (STJ, CC, TN arthrodesis), 4. KJ, 5. Removal of delta frame, 6. Right posterior heel wound debridement, 7. graft application Post-op Diagnosis:: Same Procedure performed:: 1. Right foot wound debridement x 4 2. Right Achilles tendon debridement 3. Right calcaneal bone biospy 4. Right application of Integra meshed bilayer wound matrix 5. Right application of wound vac Surgeon:: Eneida Noriega DPM BUSINESS INSIGHT AND ANALYTICS MANAGER:: Mark Basurto Anesthesia: GETA, local (0.5% marcaine plain) Estimated blood loss (mL): 20 Clinical Note:: 09/24/19: s/p 1. Right ORIF calcaneus, navicular, cunieform, cuboid, 2. Right foot Charcot reconstruction: NC arthrodesis, 3. Triple arthrodesis (STJ, CC, TN arthrodesis), 4. KJ, 5. Removal of delta frame, 6. Right posterior heel wound debridement, 7. graft application Wound culture, 11/04/19: gemella morbilloeum. Doxy 100mg BID x 2 weeks. Discussed that this was the first office visit where the surgical incisions bled post debridement. I explained the bleeding is a good thing. We discussed that the medial, lateral and anterior wounds will likely heal now that there is blood flow. The concern is still to the posterior Achilles wound. It has not changed in over a month. I explained that it may have to be surgically debrided and a graft applied with the wound vac. I explained that the longer it is open, the more chance of infection into the Achilles or to the bone. Conservative treatment options include local wound care, oral and IV antibiotics, debridement, and off-loading. Patient understands that they could have wound healing complications including delayed healing and infection. We discussed that if the wound does not heal, it is possible that they may need further debridement or a more proximal amputation and could result in further loss of digits, loss of partial foot or loss of leg. We discussed the risks and benefits in great detail. Other surgical risks include: prolonged pain and swelling, further infection requiring oral or IV antibiotics, delay in healing of soft tissue or bone, nerve or blood vessel damage, CRPS/RSD, DVT, anesthesia complications, and even . All questions answered. Patient verbalized understanding. Consent obtained. Patient saw cardiology 11/29/19. New labs day of surgery: cbc, cmp, esr, crp. e-Rx Doxy 100mg BID and Oxycodone 5mg given DOS. Operative findings:: Wound dehiscence noted to the right medial and lateral foot. Another wound noted to the anterior dorsal foot. Posterior heel ulcer with exposed Achilles. Achilles discolored with skin sloughing and black-brown eschar intact over the calcaneus. Upon debridement of the Achilles exposed calcaneal bone. Calcaneus is hard in texture and color with no evidence of purulence or osteomyelitis. All wounds were sharply excisionally debrided through skin into subcu with a 15 blade, forceps and sharp curette. Post debridement the Achilles posterior wound: 3.1 x 2.8 x 1.6 cm, exposed Achilles and bone. The medial foot wound base 80% granular, 20% fibrotic and measured 4.4 x 1.8 x 0.5 cm. There was a skin bridge and a small medial proximal wound that measured 0.9 x 0.3 x 0.3 cm with 100% granular wound base. The anterior dorsal wound was 100% granular and measured 1.5 x 1.9 x 0.2 cm. The lateral right foot wound was 80% granular with exposed peroneal tendon and measured 5.5 x 0.8 x 0.7 cm no evidence of infection, drainage or ascending cellulitis. Operative note:: On this date and time patient was deemed an appropriate surgical candidate. With informed consent signed, the patient was taken to the operating theate
--- NOTE | 2019-12-04 09:27 | P.PN_ITS ---
[facility] Anesthesia Record Part I Intake, IV Amount: 1,000 Estimated blood loss (mL): 10 Urine output (mL): 0 Blood Pressure: 151/78 SaO2: 93 Pulse Rate: 76 Respiratory Rate: 16 Temperature: 98.7 F Patient is:: Drowsy, Stable Stable to PACU at:: 09:25
--- NOTE | 2019-12-04 09:30 | XR_ITS ---
PROCEDURE: XR FOOT RT MIN 3V CLINICAL INDICATION: Post op Follow-up debridement COMPARISON: XR FOOT RT MIN 3V from 09/13/2019 XR FOOT RT MIN 3V from 09/24/2019 XR FOOT LT MIN 3V from 10/15/2019 XR FOOT WT BEARING RT 3V from 11/04/2019 FINDINGS: Medial and lateral bone plates remain in place as previously described. There is decreased density involving the mid aspect of the foot laterally. There are multiple new skin clips present. There has been screws placed within the talocalcaneal region and calcaneal cuboid as before. No obvious bony destructive process. There is a defect in the calcaneus which may be due to prior surgery IMPRESSION: Multiple new surgical skin clips otherwise no change Dictated by: Sharan Tsai MD 12/04/2019 15:40 Electronically signed by Sharan Tsai MD in [place] 12/04/2019 15:40
[2019-12-04 09:48] LABS: POC Glucose,Bedside 137 (70-110)
--- NOTE | 2019-12-04 12:07 | P.PN_ITS ---
[facility] Anesthesia Record Part II Discharge Time: 09:55 Destination: Surgical Day Care (OP Surgery) PACU nurse assessment reviewed?: Yes Patient Condition:: Good Anesthesia Complications:: None Swallowing reflex intact?: Yes Cyanosis?: No Blood Pressure: 124/78 Pulse Rate: 71 Temperature: 97.2 F Mental Status: Alert & Oriented Pain level:: 0 Nausea and/or vomitting:: None Intake, IV Amount: 0
--- NOTE | 2019-12-04 13:24 | SUR.OPER ---
1324-family updated at this time
== END 2019-12-04 10:26 | disposition home or self-care (01) ==
LOC: OR 06:01
PROVIDERS: PCP Internal Medicine; Visit Provider Podiatrist
PROC: (CPT 11042; principal; 2019-12-04 07:30)
DX: T81.32XA Disruption of internal operation (surgical) wound, not elsewhere classified, initial encounter (principal); M86.171 Other acute osteomyelitis, right ankle and foot; I70.235 Atherosclerosis of native arteries of right leg with ulceration of other part of foot; E11.51 Type 2 diabetes mellitus with diabetic peripheral angiopathy without gangrene; E11.42 Type 2 diabetes mellitus with diabetic polyneuropathy; Z79.899 Other long term (current) drug therapy; I25.810 Atherosclerosis of coronary artery bypass graft(s) without angina pectoris
CPT/HCPCS: 11042; 11043; 15275; 20240; 73630; 80053; 82962; 85025; 85651; 86140; 87070; 87077; 87205; 88304; 88311; 96374; C9363; J0692; J2405

== ENCOUNTER → 2019-12-30 14:00 | Outpatient (CLI) | payer MEDICARE, SELFPAY ==
--- NOTE | 2019-12-30 14:06 | XR_ITS ---
PROCEDURE: XR FOOT WT BEARING RT 3V CLINICAL INDICATION: postop views Follow-up surgery/fusion COMPARISON: XR FOOT RT MIN 3V from 09/13/2019 XR FOOT RT MIN 3V from 09/24/2019 XR FOOT LT MIN 3V from 10/15/2019 XR FOOT WT BEARING RT 3V from 11/04/2019 XR FOOT RT MIN 3V from 12/04/2019 FINDINGS: There is diffuse osteopenia of the midfoot. The skin clips have been removed. The diffuse osteopenia makes bony evaluation somewhat difficult to specially in the distal calcaneal and cuboid region. Bone plate persist along the medial aspect of the foot at the medial cuneiform navicular and talus region and along the lateral aspect of the midfoot at the calcaneocuboid area. Crossing lag screws are present in the calcaneus with an additional smaller screw in the posterior calcaneus. These are not significantly changed. Bony defect in the posterior calcaneus once again noted. IMPRESSION: Status post ORIF of the calcaneus and midfoot with diffuse osteopenia with good bony alignment Dictated by: Sharan Tsai MD 12/30/2019 16:28 Electronically signed by Sharan Tsai MD in [place] 12/30/2019 16:28
== END ==
PROVIDERS: PCP Internal Medicine; Visit Provider Podiatrist
DX: Z98.890 Other specified postprocedural states (principal); S92.901D Unspecified fracture of right foot, subsequent encounter for fracture with routine healing
CPT/HCPCS: 73630

== ENCOUNTER → 2020-01-20 17:29 | Outpatient (CLI) | payer MEDICARE, SELFPAY ==
[2020-01-20 18:25] LABS: Alanine Aminotransferase 26 U/L (12-78); Albumin Level 4.3 g/dl (3.5-5.0); Albumin/Globulin Ratio 1.4 (1.1-1.8); Alkaline Phosphatase 99 U/L (38-126); Anion Gap 13.2 mEq/L (5-15); Aspartate Amino Transferase 28 U/L (14-36); Bilirubin,Total 0.4 mg/dl (0.2-1.3); Blood Urea Nitrogen 12 mg/dl (7-17); Calcium 9.8 mg/dl (8.4-10.2); Carbon Dioxide 25 mmol/L (22.0-30.0); Chloride 104 mmol/L (98-107); Estimated Glomerular Filt Rate 71 ml/min (>60); GFR (African American) 85 ML/MIN (>60); Globulin 3.1 g/dL (1.3-3.2); Glucose 128 mg/dl (74-100); Potassium 4.2 mmoL/L (3.5-5.1); Sodium 138 mmol/L (136-145); Total Protein,Serum 7.4 g/dl (6.3-8.2)
[2020-01-20 18:27] LABS: Basophils # 0.1 K/mm3 (0-0.2); Basophils % 0.8 % (0.1-2.0); Eosinophils # 0.2 K/mm3 (0.0-0.4); Eosinophils % 2.5 % (0.1-12.0); Hematocrit 43.9 % (37.0-47.0); Hemoglobin 14.4 g/dL (12.2-16.2); Lymphocytes # 2.3 K/mm3 (0.7-4.5); Lymphocytes % 25.8 % (10-50); Mean Corpuscular HGB Conc 32.8 g/dL (31.8-35.4); Mean Corpuscular Hemoglobin 29.4 pg (27.0-31.2); Mean Corpuscular Volume 89.7 fl (81-99); Mean Platelet Volume 7.4 fl (7.4-10.4); Monocytes # 0.4 K/mm3 (0.1-1.0); Monocytes % 4.1 % (1.7-9.3); Neutrophils # 5.9 K/mm3 (1.8-7.8); Neutrophils % 66.9 % (37.0-80.0); Platelet Count 263 K/mm3 (142-424); Red Blood Count 4.89 M/mm3 (4.20-5.40); White Blood Count 8.8 K/mm3 (4.8-10.8)
[2020-01-20 18:31] LABS: C-Reactive Protein 1.9 mg/L (0-4)
[2020-01-20 19:48] LABS: Hemoglobin A1C 5.9 % (4.0-6.0)
[2020-01-20 20:43] LABS: Erythrocyte Sedimentation Rate 25 mm/hr (0-30)
== END ==
PROVIDERS: Visit Provider Podiatrist
DX: Z98.890 Other specified postprocedural states (principal); R60.9 Edema, unspecified; E11.610 Type 2 diabetes mellitus with diabetic neuropathic arthropathy; Z79.4 Long term (current) use of insulin
CPT/HCPCS: 36415; 80053; 83036; 85025; 85651; 86140

== ENCOUNTER → 2020-01-27 18:07 | Outpatient (CLI) | payer MEDICARE, SELFPAY | PROVIDERS: Visit Provider Podiatrist | DX: L97.316 Non-pressure chronic ulcer of right ankle with bone involvement without evidence of necrosis (principal); Z98.890 Other specified postprocedural states | CPT/HCPCS: 87070; 87205 ==

== ENCOUNTER → 2020-02-05 14:42 | Outpatient (CLI) | payer MEDICARE, SELFPAY ==
--- NOTE | 2020-02-05 14:42 | CT_ITS ---
PROCEDURE: CT FOOT RT WO CON CLINICAL HISTORY: fracture evaluation, pain Evaluate fracture/ORIF COMPARISON: XR FOOT RT MIN 3V from 09/13/2019 CT FOOT RT WO CON from 09/14/2019 XR FOOT WT BEARING RT 3V from 12/30/2019 TECHNIQUE: Axial images obtained with sagittal and coronal reformats. All CT scans at the facility use one or more dose reduction, viz: automated exposure control, ma/kV adjustment per patient size (including targeted exams where dose is matched to indication, i.e. head), or iterative reconstruction technique. FINDINGS: There has been prior ORIF of the midfoot and calcaneus. There is diffuse osteopenia and there is artifact from the bony hardware. The ankle mortise appears intact and the talar dome appears intact. Diffuse osteopenia noted of the bony elements. There is a medial bone plate with screws in the mid talus, navicular, and medial cuneiform with good alignment. The inferior most screw at the talus appears to project in the medial aspect of the posterior subtalar joint.. There is a medial bone plate at the calcaneocuboid region with good alignment. There are 2 long screws in the calcaneus 1 projecting from the posterior aspect of the calcaneus obliquely projecting through central aspect of the subtalar joint. The tip of this screw does not appear to be perched within bony substance but along the inferior aspect of the talar neck within the joint space between the talus and the calcaneus. The 2nd longer screw projects from the posterior aspect of the calcaneus anteriorly. There is an additional smaller screw from the lateral aspect of the calcaneus obliquely toward the inferior aspect of the calcaneus. It is difficult to determine the degree of bony healing due to the diffuse osteopenia. There does remain a prominent space within the central aspect of the calcaneus suspicious for an area of nonunion. The oblique long screw from the posterior calcaneus to the subtalar region passes through the region of the previous fracture. There is diffuse soft tissue swelling IMPRESSION: Status post ORIF of foot as described above with diffuse osteopenia and artifact from bony hardware. There is good alignment there is a lucency noted in the mid aspect of the calcaneus which may be related to an area of nonunion versus a posttraumatic cystic region.. The tip of the long screw from the calcaneus rests in the subtalar region not purchase within bony substance. A posterior screw of the medial aspect of the talus also appears to project into the joint space of the talocalcaneal region. Dictated by: Sharan Tsai MD 02/07/2020 16:43 Electronically signed by Sharan Tsai MD in [place] 02/07/2020 16:43
== END ==
PROVIDERS: PCP Internal Medicine; Visit Provider Podiatrist
DX: G89.18 Other acute postprocedural pain (principal); S92.901A Unspecified fracture of right foot, initial encounter for closed fracture; S92.901K Unspecified fracture of right foot, subsequent encounter for fracture with nonunion
CPT/HCPCS: 73700

== ENCOUNTER → 2020-02-17 17:48 | Outpatient (CLI) | payer MEDICARE, SELFPAY | PROVIDERS: Visit Provider Podiatrist | DX: Z98.890 Other specified postprocedural states (principal) | CPT/HCPCS: 87070; 87077; 87186; 87205 ==

== ENCOUNTER → 2020-02-18 10:20 | Outpatient (CLI) | payer MEDICARE, SELFPAY ==
--- NOTE | 2020-02-18 10:53 | ECG_ITS ---
APPROVED REPORT Exam: Resting ECG HR:65 bpm ECG Measurements Heart Rate 65 AXES AZ 128 P -6 QRSd 76 QRS 63 QT 406 T 86 QTc 422 <Conclusion> Normal sinus rhythm Normal ECG Electronically signed by : Jus Jean, 02/18/2020 15:43:02
--- NOTE | 2020-02-18 11:03 | XR_ITS ---
PROCEDURE: XR FOOT WT BEARING RT 3V CLINICAL INDICATION: R FOOT ULCER COMPARISON: XR FOOT WT BEARING RT 3V from 12/30/2019 FINDINGS: There is diffuse osteopenia as before most severe in the midfoot and at the head the 3rd metatarsal. Status post triple arthrodesis of the tail 0 navicular and cuneiform junction as before. Lateral bone plate at the calcaneocuboid junction. Prior ORIF calcaneal fracture with [address] with a mildly prominent zone of lucency around the screw from the posterior calcaneus directed toward the subtalar joint Other findings:None. IMPRESSION: Overall no change in the postsurgical changes with diffuse osteopenia Dictated by: Sharan Tsai MD 02/18/2020 14:32 Electronically signed by Sharan Tsai MD in [place] 02/18/2020 14:32
--- NOTE | 2020-02-18 11:06 | XR_ITS ---
PROCEDURE: XR CHEST 2V CLINICAL HISTORY: DIABETIC, HEART SURGERY 2 YRS AGO Heart disease COMPARISON: No exams were available for comparison FINDINGS: Prior median sternotomy. There is tortuosity of the descending thoracic aorta. There is mild patient rotation. There is some increased density along the left heart border which may be due to overlapping vessels with summation density from the rotation. Right lung is clear. No acute bony abnormalities. IMPRESSION: No definite acute finding. Please see above for detail Dictated by: Sharan Tsai MD 02/18/2020 14:24 Electronically signed by Sharan Tsai MD in [place] 02/18/2020 14:24
[2020-02-18 11:17] LABS: Basophils # 0.1 K/mm3 (0-0.2); Basophils % 0.5 % (0.1-2.0); Eosinophils # 0.2 K/mm3 (0.0-0.4); Eosinophils % 2.2 % (0.1-12.0); Hematocrit 42.6 % (37.0-47.0); Hemoglobin 14.6 g/dL (12.2-16.2); Lymphocytes # 1.9 K/mm3 (0.7-4.5); Lymphocytes % 19.9 % (10-50); Mean Corpuscular HGB Conc 34.2 g/dL (31.8-35.4); Mean Corpuscular Hemoglobin 29.8 pg (27.0-31.2); Mean Platelet Volume 7.7 fl (7.4-10.4); Monocytes # 0.4 K/mm3 (0.1-1.0); Monocytes % 4.1 % (1.7-9.3); Neutrophils % 73.3 % (37.0-80.0); Platelet Count 252 K/mm3 (142-424); Red Cell Distribution Width 15.3 % (11.5-17.5); White Blood Count 9.6 K/mm3 (4.8-10.8)
[2020-02-18 12:03] LABS: Chloride 104 mmol/L (98-107); Potassium 4.6 mmoL/L (3.5-5.1); Sodium 140 mmol/L (136-145)
[2020-02-18 12:06] LABS: Alanine Aminotransferase 16 U/L (12-78); Albumin Level 3.9 g/dl (3.5-5.0); Albumin/Globulin Ratio 1.3 (1.1-1.8); Alkaline Phosphatase 78 U/L (38-126); Anion Gap 13.6 mEq/L (5-15); Aspartate Amino Transferase 20 U/L (14-36); Bilirubin,Total 0.6 mg/dl (0.2-1.3); Blood Urea Nitrogen 15 mg/dl (7-17); Carbon Dioxide 27 mmol/L (22.0-30.0); Estimated Glomerular Filt Rate 98 ml/min (>60); GFR (African American) 119 ML/MIN (>60); Total Protein,Serum 6.9 g/dl (6.3-8.2)
[2020-02-18 12:07] LABS: Calcium 9.6 mg/dl (8.4-10.2); Glucose 133 mg/dl (74-100)
[2020-02-18 12:12] LABS: C-Reactive Protein 0.9 mg/L (0-4)
[2020-02-18 12:23] LABS: 25-OH Vitamin D, Total 38.1 ng/mL (30-100)
[2020-02-18 12:49] LABS: Coronavirus 19 IgG Antibody Negative (Negative); Coronavirus 19 IgM Antibody Negative (Negative)
[2020-02-18 13:07] LABS: Erythrocyte Sedimentation Rate 8 mm/hr (0-30)
== END ==
PROVIDERS: Visit Provider Podiatrist
DX: Z01.818 Encounter for other preprocedural examination (principal)
CPT/HCPCS: 36415; 71046; 73630; 80053; 82306; 85025; 85651; 86140; 86328; 93005

== ENCOUNTER 2020-02-19 10:07 | Day surgery (SDC) | payer MEDICARE, SELFPAY ==
--- NOTE | 2020-02-17 11:46 | SUR.PREOP ---
02/17/2020 @ 2632--PHONE CALL MADE TO PATIENT. PATIENT UNDERSTANDS THAT LAB WORK AND COVID TESTING NEEDS TO BE COMPLETED @ 1030 ON 02/18/2020. PATIENT UNDERSTANDS IF LAB WORK AND COVID-19 TESTS ARE NOT COMPLETED BY 12PM ON THAT DATE, THE SURGERY SCHEDULED WILL BE CANCELLED AND RESCHEDULED FOR ANOTHER TIME.
[2020-02-18 10:32] VITALS: BMI 24.0
[2020-02-19] VITALS (14 sets, daily range): BP systolic 138–177; BP diastolic 54–88; PULSE 64–83; RESP 12–118; TEMP 36.1–43; O2SAT 93–99
[2020-02-19 11:08] LABS: POC Glucose,Bedside 107 (70-110)
--- NOTE | 2020-02-19 11:40 | HMH.OPNOTE ---
Date of procedure: 02/19/20 Pre-op Diagnosis:: 1. S/p right foot wound debridement x 4, Achilles tendon debridement, calcaneal bone biospy, application of Integra meshed bilayer wound matrix, application of wound vac on 12/04/19 2. Retained orthopedic hardware 3. Postoperative edema 4. Infection of deep incisional surgical site after procedure, draining postoperative wound 5. 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 Charcot's joint of right foot, in type 2 diabetes mellitus 8. Osteopenia determined by x-ray Post-op Diagnosis:: Same Procedure performed:: 1. Right foot hardware removal 2. Right foot irrigation and debridement of nonviable soft tissue and bone 3. Right partial calcanectomy 4. Right foot Achilles debridement 5. Right foot bone biospy 6. Right foot wound delayed primary closure 7. Application of bone graft, antibiotics 8. Application of posterior splint Surgeon:: Eneida Noriega DPM CONSERVATION ENGINEER:: Mark Basurto Anesthesia: DEYSI Estimated blood loss (mL): 20 Clinical Note:: The patient had an avulsion fracture of the calcaneus initially which caused posterior skin necrosis. She had application of a delta frame 09/14/19. The delta frame was subsequently removed and patient had ORIF of the calcaneus, navicular, cunieform, cuboid with a right NC arthrodesis, triple arthrodesis (STJ, CC, TN arthrodesis), tendo Achilles lengthening, removal of delta frame, posterior heel wound debridement, right posterior heel graft application (amniotic membrane graft) on 09/24/19. During this surgery, the patient lost color and pulses to the right foot. She had a CT angiogram bilateral lower extremity 09/24/2019. Patient still continued to have difficulty healing the wound. She had another run off with: Right superficial femoral arterial access Right femoral vein access Right posterior tibialis artery and right PT trunk artery angiography, Drug-eluting stent deployment to the PT trunk Angioplasty to the mid and proximal posterior tibialis artery. Since this procedure patient has had local wound care including wound VAC which did help the wound size and appearance. Her sugars have been well controlled. Patient then underwent a surgical debridement with Integra graft application 12/04/2019. This again did help the wounds some, but we continued to have tissue coverage issues to the posterior ulcer. On 01/06/2020, did an in office application of Integra Primatrix skin substitute graft. The anterior wound has now healed. The lateral wound looks unchanged since last visit. But the medial wound has new drainage with exposed hardware. The posterior wound still has no soft tissue coverage and there is exposed tendon and inferior calcaneus. PRE-OP: We discussed wound care options at this point. The skin edges appear to have healed on the posterior wound and weekly debridement with dressing changes are not changing status of posterior wound. Discussed possibility of autograft, free flap coverage. She saw Dr. Felipe last week 02/12/20. He explained if there is an untreated infection, it could lead to amputation. Discussed the importance of getting wound covered, as to avoid getting a deep soft tissue or bone infection. I explained to the patient and her the longer at the wound is open the more chance for her to get infected. I discussed she is not a candidate for free flap until the hardware is removed and do an aggressive exostectomy of the calcaneus with delayed primary closure versus graft. We discussed conservative versus surgical treatment options. Conservative treatment options include local wound care, oral and IV antibiotics, change in shoe wear, taping/padding, and off-loading. Patient also understands that they could have wound healing complications including delayed healing and infection. We discussed that if the wound does not heal, it is possible that they may need a more proximal amputation and could result in further
--- NOTE | 2020-02-19 13:38 | HMH.ANESCL ---
[facility] Anesthesia Checklist - Patient Identification Patient Identification: Arm Band - Structural Data Admitted From: Home Planned Operative Procedure/s: Right foot I&D, hardware removal Consent for Planned Operative Procedure(s) Verified: Yes Verified Documents: Surgical Consent, History and Physical - NPO Status Verified Time NPO: 00:00 - Additional verifications Anesthesia Reactions: No Hx Blood Transfusions: No Blood Transfusion Reaction: No - Airway Assessment C-Spine Mobility Assessed: Yes (mp2) TMJ Mobility Assessed: Yes Dentition: Edentulous - Neurological Assessment Level of Consciousness: Awake, Alert - Anesthesia Plan Anesthesia Risk discussed: Yes Anesthesia Plan: Verified ASA Class: III Anesthesia Type: General w/block (Risks/benefits of nerve block explained. Pt verbalized understanding) [facility] History Medical History: Reports:: Arrhythmia, Atrial Fibrillation, Coronary Artery Disease, Diabetes Mellitus Type 2, Hyperlipidemia, Hypertension Denies:: Cancer, Diabetes Mellitus Type 1, Internal Pacemaker, MRSA, Seizures *Have you ever received a pneumonia vaccine?: Yes *Have you received a flu vaccine this season?: Yes Other Medical History: Denies: Blood Transfusion Reaction Anesthesia experience/problems:: nac Laterality Cases: Right: Other Other Surgeries: Yes: CABG (11/2017, 3 vessel bypass), Cardiac Catheterization, Cardiac Surgery, Hysterectomy-Partial, Other. No: Pacemaker Amputation: No Fractures: Yes (left foot) - *Social History Educational Level: Completed High School Smoking Status: Never smoker Alcohol Intake: never Alcohol Intake Frequency:: holidays/special occasions only Substance Use Type: denies use *Occupational Status:: retired Housing: house Household Members: spouse *Travel in the last 8 weeks: None Family Hx:: Cancer
--- NOTE | 2020-02-19 13:50 | XR_ITS ---
PROCEDURE: XR FOOT RT 2V CLINICAL INDICATION: RIGHT HARDWARE REMOVAL,CALCANECTOMY Follow-up surgery COMPARISON: XR FOOT WT BEARING RT 3V from 11/04/2019 XR FOOT RT MIN 3V from 12/04/2019 XR FOOT WT BEARING RT 3V from 12/30/2019 XR FOOT WT BEARING RT 3V from 02/18/2020 FINDINGS: Fluoroscopy time: 1 minutes and 59 seconds Status post hardware removal. Single lateral image obtained showing hardware removal with prior calcanealctomy posteriorly IMPRESSION: C-arm utilized for hardware removal and calcaneal surgery Dictated by: Sharan Tsai MD 02/19/2020 14:04 Electronically signed by Sharan Tsai MD in [place] 02/19/2020 14:04
--- NOTE | 2020-02-19 14:00 | XR_ITS ---
PROCEDURE: XR CALCANEUS RT MIN 2V CLINICAL INDICATION: Post op HWR Follow-up surgery COMPARISON: XR FOOT RT 2V from 02/19/2020 FINDINGS: Status post hardware removal. Posterior splint is in place obscuring bony detail. There is diffuse osteopenia. The calcaneus is obscured the posterior splint. There is good alignment of the ankle and midfoot on the lateral view. There has been interval partial calcanealectomy Other findings:None. IMPRESSION: Diffuse osteopenia. Interval hardware removal. Calcaneus is obscured Dictated by: Sharan Tsai MD 02/19/2020 16:45 Electronically signed by Sharan Tsai MD in [place] 02/19/2020 16:45
--- NOTE | 2020-02-19 14:00 | XR_ITS ---
PROCEDURE: XR FOOT RT MIN 3V CLINICAL INDICATION: Post op HWR Follow-up surgery COMPARISON: XR FOOT RT MIN 3V from 12/04/2019 XR FOOT WT BEARING RT 3V from 12/30/2019 XR FOOT WT BEARING RT 3V from 02/18/2020 XR FOOT RT 2V from 02/19/2020 FINDINGS: There has been interval hardware removal with removal of the medial bone plate the calcaneal screws and the lateral calcaneocuboid bone plate. There is diffuse osteopenia with poor definition of the bony structures with partial calcanectomy. Overlying cast obscures the calcaneus. Skin clips are present. IMPRESSION: Interval hardware removal with partial calcanectomy Dictated by: Sharan Tsai MD 02/19/2020 16:47 Electronically signed by Sharan Tsai MD in [place] 02/19/2020 16:47
--- NOTE | 2020-02-19 14:49 | P.PN_ITS ---
[facility] Anesthesia Record Part I Intake, IV Amount: 1,500 Estimated blood loss (mL): 50 Urine output (mL): 0 Blood Pressure: 152/88 SaO2: 93 Pulse Rate: 80 Respiratory Rate: 12 Temperature: 97.5 F Patient is:: Awake, Stable Stable to PACU at:: 14:45
[2020-02-19 15:33] LABS: POC Glucose,Bedside 113 (70-110)
--- NOTE | 2020-02-19 18:33 | PC.NURSE ---
1500-radiology at bedside 1525-detailed report called to SIMEON Chowdhury, pt reports pain is easing, vss 1527-fsbs checked with results of 113, pt transported to post op via stretcher w/lila rails up and left in care of SIMEON Chowdhury with bed locked in lowest position, vss, pt stable
--- NOTE | 2020-02-20 10:07 | P.PN_ITS ---
[facility] Anesthesia Record Part II Discharge Time: 15:25 Destination: Surgical Day Care (OP Surgery) PACU nurse assessment reviewed?: Yes Patient Condition:: Good Anesthesia Complications:: None Swallowing reflex intact?: Yes Cyanosis?: No Blood Pressure: 144/70 Pulse Rate: 76 Temperature: 98 F Mental Status: Alert & Oriented Pain level:: 3 Nausea and/or vomitting:: None Intake, IV Amount: 0
[2020-02-20 10:08] VITALS: BP 144/70; PULSE 76; TEMP 36.6
== END 2020-02-19 16:08 | disposition home health service (06) ==
LOC: OR 10:07
PROVIDERS: PCP Internal Medicine; Visit Provider Podiatrist
DX: T81.42XA Infection following a procedure, deep incisional surgical site, initial encounter; S92.061K Displaced intraarticular fracture of right calcaneus, subsequent encounter for fracture with nonunion; Z47.2 Encounter for removal of internal fixation device; L97.314 Non-pressure chronic ulcer of right ankle with necrosis of bone; I10 Essential (primary) hypertension; I48.91 Unspecified atrial fibrillation; Z79.4 Long term (current) use of insulin; Z79.82 Long term (current) use of aspirin; Z79.899 Other long term (current) drug therapy; Z88.8 Allergy status to other drugs, medicaments and biological substances; S92.221 Displaced fracture of lateral cuneiform of right foot; S92.251K Displaced fracture of navicular [scaphoid] of right foot, subsequent encounter for fracture with nonunion; S92.211K Displaced fracture of cuboid bone of right foot, subsequent encounter for fracture with nonunion; M85.871 Other specified disorders of bone density and structure, right ankle and foot; E11.610 Type 2 diabetes mellitus with diabetic neuropathic arthropathy; M87.874 Other osteonecrosis, right foot; M66.871 Spontaneous rupture of other tendons, right ankle and foot
CPT/HCPCS: 20680; 27650; 28120; 73620; 73630; 73650; 82962; 87070; 87075; 87077; 87186; 87205; 88305; 88307; 88311; 88312; 88342; 96374; C1713; J2405; J3370

== ENCOUNTER 2020-02-24 14:00 | Outpatient (CLI) | payer MEDICARE, SELFPAY ==
[2020-02-24 14:36] VITALS: BMI 25.6
--- NOTE | 2020-02-24 14:37 | XR_ITS ---
PROCEDURE: XR CHEST PORTABLE CLINICAL HISTORY: confirmation of PICC placement COMPARISON: [id number] XR ribs RT min 3V w CXR1V from 09/24/2017 XR CHEST PORTABLE from 09/14/2019 XR CHEST 2V from 02/18/2020 FINDINGS: The cardiomediastinal silhouette and pulmonary vascularity are within normal limits. The lungs are clear without infiltrates, suspicious nodules, or pleural effusions. A PICC line has been inserted by the left subclavian approach. The tip is in satisfactory position in the region of the superior vena cava. Lumbar scoliosis convex left. IMPRESSION: Left upper extremity PICC line is in good position Dictated by: Sharan Tsai MD 02/24/2020 15:16 Electronically signed by Sharan Tsai MD in [place] 02/24/2020 15:16
[2020-02-24 15:20] VITALS: BP 136/63; PULSE 71; RESP 18; TEMP 36.4; O2SAT 98
[2020-02-24 15:50] VITALS: BP 131/69; PULSE 76; RESP 18; O2SAT 97
[2020-02-24 16:15] VITALS: BP 154/59; PULSE 72; RESP 18; O2SAT 98
== END 2020-02-24 16:25 | disposition home or self-care (01) ==
LOC: INF 14:21
PROVIDERS: Visit Provider Podiatrist
DX: M86.171 Other acute osteomyelitis, right ankle and foot (principal)
CPT/HCPCS: 36569; 71045; 96365; C1751; J0878

== ENCOUNTER → 2020-02-28 15:09 | Outpatient (CLI) | payer MEDICARE, SELFPAY ==
[2020-02-28 15:46] LABS: Vancomycin,Trough 12.1 ug/mL (5.0-10.0)
== END ==
PROVIDERS: Visit Provider Podiatrist
DX: C44.722 Squamous cell carcinoma of skin of right lower limb, including hip (principal); M86.171 Other acute osteomyelitis, right ankle and foot; A49.02 Methicillin resistant Staphylococcus aureus infection, unspecified site; A49.8 Other bacterial infections of unspecified site
CPT/HCPCS: 80202

== ENCOUNTER → 2020-03-04 15:23 | Outpatient (CLI) | payer MEDICARE, SELFPAY ==
[2020-03-04 16:01] LABS: Vancomycin,Trough 16.2 ug/mL (5.0-10.0)
== END ==
PROVIDERS: Visit Provider Podiatrist
DX: Z51.81 Encounter for therapeutic drug level monitoring (principal)
CPT/HCPCS: 80202

== ENCOUNTER → 2020-03-11 14:27 | Outpatient (CLI) | payer MEDICARE, SELFPAY | PROVIDERS: Visit Provider Podiatrist | DX: R19.7 Diarrhea, unspecified (principal) | CPT/HCPCS: 87045 ==

== ENCOUNTER → 2020-03-12 19:21 | Outpatient (CLI) | payer MEDICARE, SELFPAY ==
[2020-03-12 19:37] LABS: Vancomycin,Trough 15.6 ug/mL (5.0-10.0)
== END ==
PROVIDERS: Visit Provider Podiatrist
DX: Z51.81 Encounter for therapeutic drug level monitoring (principal)
CPT/HCPCS: 80202

== ENCOUNTER → 2020-03-13 08:40 | Outpatient (CLI) | payer MEDICARE, SELFPAY ==
--- NOTE | 2020-03-13 08:40 | NM_ITS ---
PROCEDURE: NM BONE SCAN WHOLE BODY CLINICAL INDICATION: Squamous cell carcinoma of the foot COMPARISON: XR CALCANEUS RT MIN 2V from 02/19/2020 TECHNIQUE: Dose 26.5 mCi technetium MDP FINDINGS: Whole body images are obtained along with SPECT images of the foot. Moderate lumbar scoliosis convex left with nonspecific increased activity within the spine. There is also linear increased activity within the sternum. Focal areas of increased activity are present in the right L2-L3 L3-L4 and L4-5 facet region and left L5-S1 facet as well as the right T7-T8 area. These may be regions degenerative change. There is slight increased activity in the right hip, greater trochanter, and ischemia in in there is scattered areas of increased activity in the neck. Focal increased activity also noted in the right ankle in the distal tibia, talus, navicular region, and calcaneus. There has been prior calcaneal surgery. SPECT images confirm these areas of increased activity. IMPRESSION: 1. Increased activity within the right ankle and midfoot and hindfoot some which may be postsurgical, arthritic,/posttraumatic. Cannot exclude residual neoplasm in the calcaneus. Increased activity however could be related to the recent surgery. 2. Nonspecific activity in the spine likely degenerative. 3. Slight increased activity in the right hemipelvis and hip possibly due to the patient's positioning. Recommend radiographs for further evaluation. 4. Overall no convincing evidence of metastatic disease. Dictated by: Sharan Tsai MD 03/16/2020 10:41 Electronically signed by Sharan Tsai MD in [place] 03/16/2020 10:41
== END ==
PROVIDERS: PCP Internal Medicine; Visit Provider Podiatrist
DX: C44.722 Squamous cell carcinoma of skin of right lower limb, including hip (principal)
CPT/HCPCS: 78306; A9503

== ENCOUNTER → 2020-03-19 15:54 | Outpatient (CLI) | payer MEDICARE, SELFPAY ==
[2020-03-19 18:07] LABS: Vancomycin,Trough 16.1 ug/mL (5.0-10.0)
== END ==
PROVIDERS: Visit Provider Podiatrist
DX: Z51.81 Encounter for therapeutic drug level monitoring (principal)
CPT/HCPCS: 80202

== ENCOUNTER → 2020-03-26 15:05 | Outpatient (CLI) | payer MEDICARE, SELFPAY ==
[2020-03-26 15:26] LABS: Vancomycin,Trough 19.9 ug/mL (5.0-10.0)
== END ==
PROVIDERS: Visit Provider Podiatrist
DX: Z51.81 Encounter for therapeutic drug level monitoring (principal); Z79.2 Long term (current) use of antibiotics
CPT/HCPCS: 80202

== ENCOUNTER → 2020-03-31 14:27 | Outpatient (CLI) | payer MEDICARE, SELFPAY ==
--- NOTE | 2020-03-31 14:30 | XR_ITS ---
PROCEDURE: XR FOOT WT BEARING RT 3V CLINICAL INDICATION: post-op Follow-up surgery COMPARISON: CR XR FOOT WT BEARING RT 3V from 12/30/2019 DX XR FOOT WT BEARING RT 3V from 02/18/2020 CR XR FOOT RT 2V from 02/19/2020 CR XR CALCANEUS RT MIN 2V from 02/19/2020 CR XR FOOT RT MIN 3V from 02/19/2020 FINDINGS: There is diffuse osteopenia. There has been hardware removal as well as osteotomy the calcaneus posteriorly. There is some heterogeneous density at the osteotomy site possibly related to residual antibiotic beads or heterotopic ossification. There is severe osteopenia of the midfoot. The IMPRESSION: Severe osteopenia with postsurgical changes as described above Dictated b Sharan Tsai MD 03/31/2020 14:49 Sharan Tsai MD in [place] 03/31/2020 14:49
== END ==
PROVIDERS: PCP Internal Medicine; Visit Provider Podiatrist
DX: Z98.890 Other specified postprocedural states (principal)
CPT/HCPCS: 73630

== ENCOUNTER → 2020-04-02 14:31 | Outpatient (CLI) | payer MEDICARE, SELFPAY ==
[2020-04-02 15:08] LABS: Vancomycin,Trough 20.9 ug/mL (5.0-10.0)
== END ==
PROVIDERS: Visit Provider Podiatrist
DX: Z51.81 Encounter for therapeutic drug level monitoring (principal)
CPT/HCPCS: 80202

== ENCOUNTER → 2020-05-21 14:21 | Outpatient (CLI) | payer MEDICARE, SELFPAY ==
--- NOTE | 2020-05-21 14:36 | XR_ITS ---
PROCEDURE: XR FOOT WT BEARING RT 3V CLINICAL INDICATION: POSTOP VIEWS COMPARISON: DX XR FOOT WT BEARING RT 3V from 02/18/2020 CR XR CALCANEUS RT MIN 2V from 02/19/2020 CR XR FOOT RT 2V from 02/19/2020 CR XR FOOT RT MIN 3V from 02/19/2020 CR XR FOOT WT BEARING RT 3V from 03/31/2020 FINDINGS: There remains diffuse osteopenia most prominent in the midfoot and hindfoot with postsurgical changes of the calcaneus status post hardware removal with diffuse demineralization of the calcaneus and cortical disruption posteriorly. Status post surgery with removal of the posterior aspect of the calcaneus with cortical regularity at the surgery site. This does not appear significantly changed. IMPRESSION: Extensive osteopenia with postsurgical changes overall not significantly changed Dictated by: Sharan Tsai MD 05/25/2020 06:35 Sharan Tsai MD in [place] 05/25/2020 06:35
== END ==
PROVIDERS: PCP Internal Medicine; Visit Provider Podiatrist
DX: S92.901K Unspecified fracture of right foot, subsequent encounter for fracture with nonunion (principal); M24.571 Contracture, right ankle
CPT/HCPCS: 73630

== ENCOUNTER 2020-08-12 09:00 | Outpatient (RCR) | payer MEDICARE, SELFPAY ==
--- NOTE | 2020-05-27 17:55 | HMH.PTOPEV ---
PT Outpatient Evaluation Rehab PT Outpatient Evaluation Start: 05/27/20 15:40 Freq: Status: Active Protocol: Document 05/27/20 16:48 SALBADORDERICK (Rec: 05/27/20 17:55 CHINYERE [id number]) Electronically Signed By Ifeanyi Whaley PT 05/27/20 16:48 Outpatient Therapy Subjective History Subjective History This is the initial evaluation for Henny Mckinnon, a 74 y/o female referred to physical therapy s/p right foot hardware removal, irrigation and debridement of nonviable soft tissue and bone, partial calcanectomy, Achilles debridement, bone biospy, delayed primary closure, application of bone graft, antibiotics (copied from office visit note on 05/21/20). Pt. is a diabetic who states that it is undercontrol. Pt reprots to PT w/ decreased ROM , strength, and ambulation. Note by Mariano Berry, SPT Chief Complaint Pain,Stiff,Swelling Symptom Type Ache,Sharp Symptoms Relieved By Rest/Positioning,Heat,Brace/ Support,Prescription Meds, Elevation Symptoms Aggravated By Standing,Physical Activity, Walking Prior Functional Limitations None Current Functional Limitations Housework,Standing,Squatting, Recreation Activity,Walking, Stairs,Balance Symptom Description Intermittent Level of pain today (0-10) 0 Pain scale - at its best (0-10) 0 Pain scale - at its worst (0-10) 7 Ankle/Foot Eval Gait Observation General Gait Pattern Observation Decrease Weight Bear (R) Assistive Device Ambulation Assistive Device Rolling Walker ROM right Ankle/Foot Dorsiflexion w/Knee Extended 50 from neutral Passive Range (degrees) Ankle/Foot Plantar Flexion Passive Range 75 of Motion (degrees) Ankle/Foot ROM Limitations Soft Tissue Tightness, Contracture MMT left Ankle Dorsiflexion Strength Grade 5 Normal right Ankle Dorsiflexion Strength Grade 2- Poor- Balance Eval Prior Functional Limitations Prior Functional [place] Level None Current Functional Limitations Comment Being able to weightbear, standing, walking, Gait/Posture Asssessment Assistive Devices Rolling / Wheeled Walker
== END 2020-08-12 09:05 | disposition home or self-care (01) ==
LOC: PT 09:00
PROVIDERS: PCP Internal Medicine; Visit Provider Podiatrist
DX: S92.901K Unspecified fracture of right foot, subsequent encounter for fracture with nonunion (principal); S92.901A Unspecified fracture of right foot, initial encounter for closed fracture; M24.571 Contracture, right ankle; M89.8X9 Other specified disorders of bone, unspecified site; Z98.890 Other specified postprocedural states
CPT/HCPCS: 97110; 97140; 97163; 97164; 97530

== ENCOUNTER → 2020-09-18 11:27 | Outpatient (CLI) | payer MEDICARE, SELFPAY ==
[2020-09-18 12:43] LABS: Hemoglobin A1C 8.7 % (4.0-6.0)
== END ==
PROVIDERS: Visit Provider Internal Medicine
DX: E11.59 Type 2 diabetes mellitus with other circulatory complications (principal); Z79.4 Long term (current) use of insulin
CPT/HCPCS: 36415; 83036

== ENCOUNTER 2020-11-07 13:40 | Emergency (ER) | payer MEDICARE, SELFPAY ==
[2020-11-07 13:50] VITALS: BP 152/90; PULSE 104; RESP 20; TEMP 37.1; O2SAT 96; BMI 26.5
--- NOTE | 2020-11-07 14:12 | HMH.EDUTC ---
[facility] [place] Disposition Clinical Impression: Sinusitis Qualifiers: Sinusitis location: unspecified location Chronicity: unspecified Qualified Code(s): J32.9 - Chronic sinusitis, unspecified Disposition: Home, Self-Care Condition on Discharge: Good Instructions: Sinusitis, DI for Sinusitis, DI for Cough -- Adult, Doxycycline, Benzonatate Additional Instructions: *Monitor Temp, Over the counter Motrin or Tylenol as directed/as needed Tylenol every 4 hours and Motrin every 6 hours (as long as your family doctor has told you that you can take it) for fever or pain. and straight to ER if unable to lower temp less than 101.0 after medication given *Warm salt water gargles may help to soothe the throat *Throat Lozenges *Warm fluids like tea with honey may help to soothe the throat *Sleep elevated *Humidifier/Vaporizer *Flonase 2 sprays in each nostril daily but be aware that it may take 2-3 days before you notice improvement *Take medication as prescribed Follow up with your Family Doctor if any worsening of symptoms Return if needed Follow up IMMEDIATELY for new or worsening symptoms or no Noticeable improvement over the next 48-72 hours. 911 for difficulty breathing or swallowing Prescriptions: Doxycycline Monohydrate [Doxycycline Sevier 100mg Tab] 100 mg PO Q12 7 Days #14 tab Transmission Status: Pending to [facility] Benzonatate [Tessalon Perle 100mg Cap*] 100 mg PO TID PRN #15 cap PRN Reason: Cough Transmission Status: Pending to [facility] Referrals: Jhonatan Wolfe [Primary Care Provider] - As needed Time of Disposition: 14:23 Medical Decision Making - Joo Inquiry Pt receiving controlled substance: No Joo was queried for this patient: No Vital Signs: 11/07/20 13:50 Temperature 98.7 F Temperature Source Oral Pulse Rate [Right Brachial] 104 H Respiratory Rate 20 Blood Pressure [Right Arm] 152/90 H Blood Pressure Mean [Right Arm] 110 Blood Pressure Source [Right Arm] Automatic Cuff Blood Pressure Position [Right Arm] Sitting 02 Sat by Pulse Oximetry 96 Oxygen Delivery Method Room Air [facility] [place] HPI - General Stated complaint: cough Time Seen by Provider: 11/07/20 14:12 Mode of Arrival: Ambulatory Source of Information: Patient Limitations: No Limitations Description of Symptoms (Recalled from Triage Doc. by RN): PATIENT C/O COUGH, SNEEZING, HEADACHE, AND SINUS DRAINAGE SINCE MONDAY HEENT Symptoms (Recalled from RN notes): Yes Resp Symptoms (Recalled from RN notes): Yes Skin Symptoms (Recalled from RN notes): No MS Symptoms (Recalled from RN notes): No Functional Status (Recalled from RN notes): WNL - History of Present Illness Provider Complaint: Patient state that she has been having sinus pain and pressure, cough, nasal drainage and sneezing State that she feels like she may have a sinus infection State that it has continued to get worse over the last 4-5 days so she came in to get something to help - Related Data Home Medications Medication Instructions Recorded Confirmed atorvastatin 80 mg tablet 80 mg PO HS tab 01/30/18 09/16/20 Ertugliflozin Pidolate [Steglatro] 15 mg PO DAILY 09/14/19 09/16/20 Aspirin [Low Dose Aspirin EC] 81 mg PO DAILY 12/03/19 09/16/20 potassium chloride 10 mEq 10 meq PO cap 03/24/20 09/16/20 capsule,extended release insulin glargine 100 unit/mL (3 20 unit SQ PM ml 09/16/20 09/16/20 mL) subcutaneous pen Previous Rx's Medication Instructions Recorded ergocalciferol (vitamin D2) 1,250 50,000 unit PO WEEKLY #20 cap 02/17/20 mcg (50,000 unit) capsule metoprolol tartrate 50 mg tablet 50 mg PO BID #60 tab 05/13/20 clopidogrel 75 mg tablet 75 mg PO DAILY #90 tab 10/14/20 Benzonatate [Tessalon Perle 100mg 100 mg PO TID PRN #15 cap 11/07/20 Cap*] Doxycycline Monohydrate 100 mg PO Q12 7 Days #14 tab 11/07/20 [Doxycycline Sevier 100mg Tab] Allergies Allergy/AdvReac Type Severity Reaction Status Date / Time rivaroxaban [From Xar
[2020-11-07 14:28] VITALS: BP 152/90; PULSE 104; RESP 20; TEMP 37.1; O2SAT 96
== END 2020-11-07 14:30 | disposition home or self-care (01) ==
PROVIDERS: Emergency Provider Nurse Practitioner; PCP Internal Medicine
DX: J32.9 Chronic sinusitis, unspecified (principal); I10 Essential (primary) hypertension; E78.5 Hyperlipidemia, unspecified; I48.91 Unspecified atrial fibrillation; E11.9 Type 2 diabetes mellitus without complications; Z79.899 Other long term (current) drug therapy
CPT/HCPCS: G0463; 99202

== ENCOUNTER → 2021-05-03 08:04 | Outpatient (CLI) | payer MEDICARE, SELFPAY | PROVIDERS: Visit Provider Ophthalmology | DX: Z20.822 Contact with and (suspected) exposure to COVID-19 (principal); Z01.812 Encounter for preprocedural laboratory examination | CPT/HCPCS: C9803; U0003; U0005 ==

== ENCOUNTER 2021-05-04 07:06 | Day surgery (SDC) | payer MEDICARE, SELFPAY ==
[2021-04-29 08:06] VITALS: BMI 26.5
[2021-05-04] VITALS (12 sets, daily range): BP systolic 134–221; BP diastolic 70–106; PULSE 60–76; RESP 16–20; TEMP 36.7; O2SAT 95–99
[2021-05-06 07:48] LABS: POC Glucose,Bedside 258 (70-110)
== END 2021-05-04 09:36 | disposition home or self-care (01) ==
LOC: OR 07:07
PROVIDERS: PCP Internal Medicine; Visit Provider Ophthalmology
DX: H26.8 Other specified cataract (principal); H53.8 Other visual disturbances
CPT/HCPCS: 66982; 82962; V2632

== ENCOUNTER → 2021-05-15 09:28 | Outpatient (CLI) | payer MEDICARE, SELFPAY | PROVIDERS: Visit Provider Ophthalmology | DX: Z01.812 Encounter for preprocedural laboratory examination (principal); Z11.52 Encounter for screening for COVID-19 | CPT/HCPCS: C9803; U0003; U0005 ==

== ENCOUNTER 2021-05-18 06:25 | Day surgery (SDC) | payer MEDICARE, SELFPAY ==
[2021-05-14 14:27] VITALS: BMI 26.5
[2021-05-18] VITALS (8 sets, daily range): BP systolic 082–214; BP diastolic 80–109; PULSE 60–68; RESP 14–16; TEMP 36.2–36.9; O2SAT 97–100
[2021-05-18 07:13] LABS: POC Glucose,Bedside 298 (70-110)
== END 2021-05-18 08:40 | disposition home or self-care (01) ==
LOC: OR 06:27
PROVIDERS: PCP Internal Medicine; Visit Provider Ophthalmology
DX: H25.811 Combined forms of age-related cataract, right eye (principal); H02.831 Dermatochalasis of right upper eyelid; H02.834 Dermatochalasis of left upper eyelid; E11.9 Type 2 diabetes mellitus without complications; I25.10 Atherosclerotic heart disease of native coronary artery without angina pectoris; I10 Essential (primary) hypertension; K21.9 Gastro-esophageal reflux disease without esophagitis; Z88.8 Allergy status to other drugs, medicaments and biological substances; Z79.82 Long term (current) use of aspirin; Z79.4 Long term (current) use of insulin; Z79.899 Other long term (current) drug therapy
CPT/HCPCS: 66984; 82962; V2632

== ENCOUNTER → 2021-05-24 07:51 | Outpatient (CLI) | payer MEDICARE, SELFPAY ==
[2021-05-24 08:53] LABS: Chloride 106 mmol/L (98-107); Sodium 141 mmol/L (136-145)
[2021-05-24 08:54] LABS: Potassium 5.5 mmoL/L (3.5-5.1)
[2021-05-24 08:56] LABS: Blood Urea Nitrogen 18 mg/dl (7-17); Estimated Glomerular Filt Rate 49 ml/min (>60); GFR (African American) 59 ML/MIN (>60)
[2021-05-24 08:57] LABS: Anion Gap 14.5 mEq/L (5-15); Calcium 9.6 mg/dl (8.4-10.2); Carbon Dioxide 26 mmol/L (22.0-30.0); Glucose 118 mg/dl (74-100)
== END ==
PROVIDERS: Visit Provider Physician Assistant
DX: E11.42 Type 2 diabetes mellitus with diabetic polyneuropathy (principal); E78.2 Mixed hyperlipidemia; I11.9 Hypertensive heart disease without heart failure; I25.810 Atherosclerosis of coronary artery bypass graft(s) without angina pectoris; I73.9 Peripheral vascular disease, unspecified; Z95.1 Presence of aortocoronary bypass graft
CPT/HCPCS: 36415; 80048

== ENCOUNTER → 2021-06-14 08:14 | Outpatient (CLI) | payer MEDICARE, SELFPAY ==
[2021-06-14 08:53] LABS: Chloride 100 mmol/L (98-107); Potassium 4.5 mmoL/L (3.5-5.1); Sodium 138 mmol/L (136-145)
[2021-06-14 08:56] LABS: Anion Gap 15.5 mEq/L (5-15); Blood Urea Nitrogen 19 mg/dl (7-17); Calcium 8.9 mg/dl (8.4-10.2); Carbon Dioxide 27 mmol/L (22.0-30.0); Estimated Glomerular Filt Rate 49 ml/min (>60); GFR (African American) 59 ML/MIN (>60); Glucose 229 mg/dl (74-100)
== END ==
PROVIDERS: Visit Provider Urology
DX: E78.5 Hyperlipidemia, unspecified (principal); E87.5 Hyperkalemia; I11.9 Hypertensive heart disease without heart failure; I25.10 Atherosclerotic heart disease of native coronary artery without angina pectoris; I73.9 Peripheral vascular disease, unspecified; Z95.1 Presence of aortocoronary bypass graft
CPT/HCPCS: 36415; 80048

== ENCOUNTER → 2021-06-18 18:26 | Outpatient (CLI) | payer MEDICARE, SELFPAY ==
[2021-06-18 20:16] LABS: Alanine Aminotransferase 21 U/L (12-78); Albumin Level 3.7 g/dl (3.5-5.0); Albumin/Globulin Ratio 1.3 (1.1-1.8); Alkaline Phosphatase 96 U/L (38-126); Anion Gap 15.1 mEq/L (5-15); Aspartate Amino Transferase 25 U/L (14-36); Bilirubin,Total 0.5 mg/dl (0.2-1.3); Blood Urea Nitrogen 19 mg/dl (7-17); Calcium 9.1 mg/dl (8.4-10.2); Carbon Dioxide 27 mmol/L (22.0-30.0); Chloride 98 mmol/L (98-107); Chol/HDL Ratio 4.7 (1-3.5); Cholesterol 180 mg/dl (140-200); Estimated Glomerular Filt Rate 54 ml/min (>60); GFR (African American) 66 ML/MIN (>60); Globulin 2.8 g/dL (1.3-3.2); Glucose 245 mg/dl (74-100); HDL Cholesterol 38 mg/dl (40-60); Potassium 5.1 mmoL/L (3.5-5.1); Sodium 135 mmol/L (136-145); Total Protein,Serum 6.5 g/dl (6.3-8.2); Triglycerides 350 mg/dl (30-150); VLDL Cholesterol 70 mg/dL (0-40)
[2021-06-18 20:27] LABS: Direct LDL Cholesterol 84.06 mg/dL (100-129)
[2021-06-18 20:38] LABS: Hemoglobin A1C 9.9 % (4.0-6.0)
== END ==
PROVIDERS: Visit Provider Internal Medicine
DX: I25.10 Atherosclerotic heart disease of native coronary artery without angina pectoris (principal); I10 Essential (primary) hypertension; E11.59 Type 2 diabetes mellitus with other circulatory complications; E78.5 Hyperlipidemia, unspecified; I73.9 Peripheral vascular disease, unspecified; Z95.1 Presence of aortocoronary bypass graft; Z79.4 Long term (current) use of insulin
CPT/HCPCS: 80053; 80061; 83036

== ENCOUNTER 2022-03-12 08:29 | Emergency (ER) | payer MEDICARE, SELFPAY ==
[2022-03-12 08:30] VITALS: BP 196/90; PULSE 81; RESP 16; TEMP 36.8; O2SAT 94; BMI 25.6
[2022-03-12 08:50] VITALS: BP 196/90; PULSE 81; RESP 16; TEMP 36.8; O2SAT 94; BMI 25.7
--- NOTE | 2022-03-12 08:52 | HMH.EDUTC ---
[facility] Disposition Clinical Impression: Upper respiratory infection Qualifiers: URI type: unspecified viral URI Qualified Code(s): J06.9 - Acute upper respiratory infection, unspecified Disposition: Home, Self-Care Condition on Discharge: Good Instructions: DI for Viral Upper Respiratory Infection -- Adult Additional Instructions: continue antibiotics Nasal saline and bulb syringe or nose Azucena to remove nasal drainage to help with nasal congestion. Hard to eat, drink, sleep with nasal congestion so important to keep this cleaned out. Monitor temp. Tylenol or Motrin as needed for pain or fever Encourage fluids, water, Gatorade, Powerade, Pedialyte if infant/toddler/child Warm salt water gargles Warm fluids Sore throat lozenges Sleep elevated Humidifier/vaporizer Follow-up immediately for new or worsening symptoms or no noticeable improvement over the next 48-72 hours. monitor glucose close Prescriptions: Benzonatate [Benzonatate 100mg cap] 100 mg PO BID PRN 7 Days #14 cap PRN Reason: Cough Transmission Status: Pending to Clinic Pharm[facility] Referrals: Jhonatan Amaya MD [Primary Care Provider] - Time of Disposition: 09:07 Medical Decision Making - Joo Inquiry Pt receiving controlled substance: No Vital Signs: 03/12/22 08:30 Temperature 98.3 F Temperature Source Oral Pulse Rate [Right Radial] 81 Respiratory Rate 16 Blood Pressure [Right Arm] 196/90 H Blood Pressure Mean [Right Arm] 125 Blood Pressure Source [Right Arm] Automatic Cuff Blood Pressure Position [Right Arm] Sitting 02 Sat by Pulse Oximetry 94 L Oxygen Delivery Method Room Air [facility] HPI - General Chief complaint: Urgent Treatment Center Stated complaint: cough,runny nose Time Seen by Provider: 03/12/22 08:52 Mode of Arrival: Ambulatory Source of Information: Patient Limitations: No Limitations Description of Symptoms (Recalled from Triage Doc. by RN): Pt c/o non-productive cough x1 week - History of Present Illness Provider Complaint: 76 yr old female presents for cough,fever, sinus pressure,and scratchy throat for [address] amaya on and placed on amoxicillin but the cough makes it hard to sleep. - Related Data Home Medications Medication Instructions Recorded Confirmed atorvastatin 80 mg tablet 80 mg PO HS tab 01/30/18 01/31/22 Aspirin [Low Dose Aspirin EC] 81 mg PO DAILY 12/03/19 01/31/22 insulin glargine 100 unit/mL (3 55 unit SQ PM ml 01/31/22 01/31/22 mL) subcutaneous pen Previous Rx's Medication Instructions Recorded losartan 50 mg-hydrochlorothiazide 1 tab PO BID #60 tab 06/25/21 12.5 mg tablet clopidogrel 75 mg tablet See Rx Instructions .ROUTE 01/04/22 .COMPLEX #90 tablet metoprolol tartrate 50 mg tablet 50 mg PO BID #60 tab 01/31/22 Benzonatate [Benzonatate 100mg 100 mg PO BID PRN 7 Days #14 cap 03/12/22 cap] Allergies Allergy/AdvReac Type Severity Reaction Status Date / Time rivaroxaban [From Xarelto] Allergy Intermediate swelling Verified 01/31/22 09:42 of lower ext. [facility] History - Hepatitis A Screen Attestation statement:: This patient has been screened for Hepatitis A risk factors. I have reviewed the patient's past medical history: Yes Medical History: Reports:: Arrhythmia, Atrial Fibrillation, Coronary Artery Disease, Diabetes Mellitus Type 2, Hyperlipidemia, Hypertension Denies:: Cancer, Diabetes Mellitus Type 1, Internal Pacemaker, MRSA, Seizures Other Medical History: Denies: Blood Transfusion Reaction Laterality Cases: Right: Other Other Surgeries: Yes: Angiogram, CABG, Cardiac Catheterization, Cardiac Surgery, Hysterectomy-Partial, Other. No: Pacemaker Amputation: No Fractures: Yes (left foot) Comment: Right ankle fracture external fixation. stent placement november 2019 - Social History Smoking Status: Never smoker Alcohol Intake: current Alcohol Intake Frequency:: holidays/special occasions only Substance Use Type: denies use Occup
[2022-03-12 09:08] VITALS: BP 196/90; PULSE 81; RESP 16; TEMP 36.8; O2SAT 94
[2022-03-12 09:23] LABS: Adenovirus,PCR Not Detected (NotDetected); Bordetella Pertussis Not Detected (NotDetected); Chlamydophila Pneumoniae, PCR Not Detected (NotDetected); Coronavirus 229E Not Detected (NotDetected); Coronavirus NL63 Not Detected (NotDetected); Coronavirus OC43 Not Detected (NotDetected); Coronovirus HKU1,PCR Not Detected (NotDetected); Human Metapneumovirus Not Detected (NotDetected); Influenza A, PCR Not Detected (NotDetected); Influenza AH1, 2009 Not Detected (NotDetected); Influenza AH1, PCR Not Detected (NotDetected); Influenza AH3,PCR Not Detected (NotDetected); Influenza B, PCR Not Detected (NotDetected); Mycoplasma Pneumoniae, PCR Not Detected (NotDetected); Parainfluenza 1, PCR Not Detected (NotDetected); Parainfluenza 2, PCR Not Detected (NotDetected); Parainfluenza 3, PCR Not Detected (NotDetected); Parainfluenza 4, PCR Not Detected (NotDetected); Respiratory Syncytial Virus Not Detected (NotDetected); Rhinovirus/Enterovirus Not Detected (NotDetected)
== END 2022-03-12 09:17 | disposition home or self-care (01) ==
LOC: ER 08:36 → UTC 08:38
PROVIDERS: Emergency Provider Nurse Practitioner Family; PCP Internal Medicine
DX: J06.9 Acute upper respiratory infection, unspecified (principal); R05.9 Cough, unspecified; R09.81 Nasal congestion; R50.9 Fever, unspecified; G50.1 Atypical facial pain; R07.0 Pain in throat; I48.91 Unspecified atrial fibrillation; I25.10 Atherosclerotic heart disease of native coronary artery without angina pectoris; E11.9 Type 2 diabetes mellitus without complications; Z79.4 Long term (current) use of insulin; E78.5 Hyperlipidemia, unspecified; I10 Essential (primary) hypertension
CPT/HCPCS: 87486; 87581; 87632; 87798; 96372; 99212; G0463

== ENCOUNTER → 2022-10-31 14:40 | Outpatient (CLI) | payer MEDICARE, SELFPAY ==
[2022-10-31 17:29] LABS: Basophils # 0.1 K/mm3 (0-0.2); Basophils % 0.9 % (0.1-2.0); Eosinophils # 0.2 K/mm3 (0.0-0.4); Hematocrit 41.2 % (37.0-47.0); Hemoglobin 13.6 g/dL (12.2-16.2); Lymphocytes % 22.1 % (10-50); Mean Corpuscular HGB Conc 32.9 g/dL (31.8-35.4); Mean Corpuscular Hemoglobin 28.8 pg (27.0-31.2); Mean Corpuscular Volume 87.5 fl (81-99); Mean Platelet Volume 9.1 fl (7.4-10.4); Monocytes # 0.5 K/mm3 (0.1-1.0); Monocytes % 5.1 % (1.7-9.3); Neutrophils # 6.3 K/mm3 (1.8-7.8); Platelet Count 239 K/mm3 (142-424); Red Blood Count 4.71 M/mm3 (4.20-5.40); Red Cell Distribution Width 14.9 % (11.5-17.5)
[2022-10-31 17:33] LABS: Alanine Aminotransferase 18 U/L (12-78); Albumin Level 3.7 g/dl (3.5-5.0); Albumin/Globulin Ratio 1.4 (1.1-1.8); Alkaline Phosphatase 77 U/L (38-126); Anion Gap 11.3 mEq/L (5-15); Aspartate Amino Transferase 26 U/L (14-36); Bilirubin,Total 0.8 mg/dl (0.2-1.3); Blood Urea Nitrogen 16 mg/dl (7-17); Calcium 8.6 mg/dl (8.4-10.2); Carbon Dioxide 27 mmol/L (22.0-30.0); Chloride 101 mmol/L (98-107); Chol/HDL Ratio 4.7 (1-3.5); Cholesterol 161 mg/dl (140-200); Estimated Glomerular Filt Rate 48 ml/min (>60); GFR (African American) 59 ML/MIN (>60); Globulin 2.6 g/dL (1.3-3.2); Glucose 139 mg/dl (74-100); HDL Cholesterol 34 mg/dl (40-60); Potassium 4.3 mmoL/L (3.5-5.1); Sodium 135 mmol/L (136-145); Total Protein,Serum 6.3 g/dl (6.3-8.2); Triglycerides 288 mg/dl (30-150); VLDL Cholesterol 58 mg/dL (0-40)
[2022-10-31 17:44] LABS: Direct LDL Cholesterol 87.41 mg/dL (100-129)
[2022-10-31 17:50] LABS: Hemoglobin A1C 11.5 % (4.0-6.0)
== END ==
PROVIDERS: PCP Internal Medicine; Visit Provider Internal Medicine
DX: E11.59 Type 2 diabetes mellitus with other circulatory complications (principal); I10 Essential (primary) hypertension; E78.5 Hyperlipidemia, unspecified; I25.10 Atherosclerotic heart disease of native coronary artery without angina pectoris; Z95.1 Presence of aortocoronary bypass graft; Z79.4 Long term (current) use of insulin
CPT/HCPCS: 80053; 80061; 83036; 85025

== ENCOUNTER 2022-11-19 12:49 | Emergency (ER) | payer MEDICARE, SELFPAY ==
[2022-11-19 12:49] VITALS: BP 199/90; PULSE 89; RESP 17; TEMP 36.9; O2SAT 95; BMI 25.6
--- NOTE | 2022-11-19 12:58 | PC.NURSE ---
CELESTE GOLDBERG at for pt peggyal
--- NOTE | 2022-11-19 13:01 | HMH.EDGENADL ---
Discharge Plan Disposition Patient Disposition: Home, Self-Care Condition: Fair Prescriptions Prescriptions: No Action atorvastatin 80 mg tablet 80 mg PO HS metoprolol tartrate 50 mg tablet 50 mg PO BID Qty: 60 5RF losartan-hydrochlorothiazide 50-12.5 mg tablet See Rx Instructions .ROUTE .COMPLEX Qty: 60 5RF Dose Instruction: TAKE ONE TABLET BY MOUTH TWICE DAILY FOR high blood pressure Rx Instructions: TAKE ONE TABLET BY MOUTH TWICE DAILY FOR high blood pressure clopidogrel 75 mg tablet See Rx Instructions .ROUTE .COMPLEX Qty: 90 1RF Dose Instruction: TAKE ONE TABLET BY MOUTH EVERY DAY FOR blood thinner Rx Instructions: TAKE ONE TABLET BY MOUTH EVERY DAY FOR blood thinner insulin glargine 100 unit/mL (3 mL) insulin pen 55 unit SQ PM aspirin 81 MG tablet,delayed release (DR/EC) 81 mg PO DAILY Referrals Follow up/Referrals: Jhonatan Wolfe MD [Primary Care Provider] - See instructions Clinical Impressions Clinical Impression: Viral URI with cough Instructions Patient Instructions: DI for Viral Upper Respiratory Infection -- Adult Discharge ED Provider: Javier Saucedo General Adult HPI General Chief complaint: Upper Respiratory Infection Stated complaint: congested,cough Time Seen by Provider: 11/19/22 13:00 Mode of Arrival: Ambulatory Source of Information: Patient Limitations: No Limitations Description of Symptoms (Recalled from ER Triage Doc. by RN): 77 F presents with non-productive and worsening cough for 1 week. Denies fever, chills, chest pain, SOA. Unknown if she has had any sick contacts. History of Present Illness HPI narrative: Patient is a 77-year-old female with past medical history of sinusitis, diabetes atrial fibrillation, hyperlipidemia, CAD, hypertension who presents with concern for cough. She denies any fever or chills. She says that has been going on for approximately 1 week and does not seem to be improving. Nonproductive cough. No history of smoking. No neck pain. Related Data Home Medications Medication Instructions Recorded Confirmed atorvastatin 80 mg tablet 80 mg PO HS HYPERLIPIDEMIA 01/30/18 11/16/22 aspirin 81 mg tablet,delayed 81 mg PO DAILY heart health 12/03/19 11/16/22 release insulin glargine 100 unit/mL (3 55 unit SQ PM Diabetes 01/31/22 11/16/22 mL) subcutaneous pen Previous Rx's Medication Instructions Recorded metoprolol tartrate 50 mg tablet 50 mg PO BID #60 tabs 03/25/22 losartan 50 mg-hydrochlorothiazide See Rx Instructions .Route 04/20/22 12.5 mg tablet .COMPLEX #60 tabs clopidogrel 75 mg tablet See Rx Instructions .Route 08/16/22 .COMPLEX #90 tabs Allergies Allergy/AdvReac Type Severity Reaction Status Date / Time rivaroxaban [From Xarelto] Allergy Intermediate swelling Verified 11/16/22 09:57 of lower ext. PFSH [facility] Disclaimer: The information contained in this section may have been updated after the patient was seen, as this information can be updated by other users. Medical History HHD (hypertensive heart disease) HLD (hyperlipidemia) Surgical History S/P CABG (coronary artery bypass graft) Social History Smoking Status: Never smoker second hand exposure: No alcohol intake: current substance use type: denies use current occupational status: retired Travel in the last 8 weeks: None household members: spouse housing: house current occupational exposures/hazards: No caffeine: Yes ROS Obtained: Yes All systems reviewed & no additional complaints except as documented Physical Exam General General appearance: alert and in no apparent distress Head Head exam: atraumatic, normocephalic and normal inspection Eye Eye exam: Present normal appearance and PERRL EN
--- NOTE | 2022-11-19 13:03 | PC.NURSE ---
call made to pharmacy for magic mouthwash
[2022-11-19 13:18] VITALS: BP 162/90; PULSE 82; RESP 16; TEMP 36.6
== END 2022-11-19 13:18 | disposition home or self-care (01) ==
PROVIDERS: Emergency Provider Student in an Organized Health Care Education/Training Program; PCP Internal Medicine
DX: J06.9 Acute upper respiratory infection, unspecified (principal)
CPT/HCPCS: 99283; 99284

== ENCOUNTER → 2023-05-09 12:20 | Outpatient (CLI) | payer MEDICARE, SELFPAY ==
[2023-05-09 13:54] LABS: Hemoglobin A1C 10.8 % (4.0-6.0)
[2023-05-09 13:55] LABS: Chloride 103 mmol/L (98-107); Potassium 4.8 mmoL/L (3.5-5.1); Sodium 138 mmol/L (136-145)
[2023-05-09 13:57] LABS: Blood Urea Nitrogen 23 mg/dl (7-17); Estimated Glomerular Filt Rate 48 ml/min (>60); GFR (African American) 59 ML/MIN (>60)
[2023-05-09 13:58] LABS: Alanine Aminotransferase 27 U/L (12-78); Albumin Level 3.4 g/dl (3.5-5.0); Albumin/Globulin Ratio 1.2 (1.1-1.8); Alkaline Phosphatase 74 U/L (38-126); Anion Gap 13.8 mEq/L (5-15); Aspartate Amino Transferase 28 U/L (14-36); Bilirubin,Total 0.6 mg/dl (0.2-1.3); Calcium 8.5 mg/dl (8.4-10.2); Carbon Dioxide 26 mmol/L (22.0-30.0); Globulin 2.8 g/dL (1.3-3.2); Glucose 195 mg/dl (74-100); Total Protein,Serum 6.2 g/dl (6.3-8.2)
[2023-05-10 08:44] LABS: Chol/HDL Ratio 4.4 (1-3.5); Cholesterol 135 mg/dl (140-200); HDL Cholesterol 31 mg/dl (40-60); Triglycerides 212 mg/dl (30-150); VLDL Cholesterol 42 mg/dL (0-40)
== END ==
PROVIDERS: PCP Internal Medicine; Visit Provider Internal Medicine
DX: I25.10 Atherosclerotic heart disease of native coronary artery without angina pectoris (principal); I10 Essential (primary) hypertension; I73.9 Peripheral vascular disease, unspecified; E78.5 Hyperlipidemia, unspecified; E11.59 Type 2 diabetes mellitus with other circulatory complications; Z79.4 Long term (current) use of insulin; Z95.1 Presence of aortocoronary bypass graft
CPT/HCPCS: 80053; 80061; 83036

== ENCOUNTER → 2023-06-06 09:07 | Outpatient (CLI) | payer MEDICARE, SELFPAY ==
[2023-06-06 10:06] LABS: Basophils % 0.4 % (0.1-2.0); Eosinophils # 0.2 K/mm3 (0.0-0.4); Hematocrit 38.5 % (37.0-47.0); Hemoglobin 13.3 g/dL (12.2-16.2); Lymphocytes # 1.8 K/mm3 (0.7-4.5); Lymphocytes % 23.7 % (10-50); Mean Corpuscular HGB Conc 34.6 g/dL (31.8-35.4); Mean Corpuscular Hemoglobin 29.4 pg (27.0-31.2); Mean Corpuscular Volume 84.9 fl (81-99); Mean Platelet Volume 7.5 fl (7.4-10.4); Monocytes # 0.3 K/mm3 (0.1-1.0); Monocytes % 4.4 % (1.7-9.3); Neutrophils # 5.4 K/mm3 (1.8-7.8); Neutrophils % 69.4 % (37.0-80.0); Platelet Count 192 K/mm3 (142-424); Red Blood Count 4.53 M/mm3 (4.20-5.40); White Blood Count 7.7 K/mm3 (4.8-10.8)
[2023-06-06 10:44] LABS: Chloride 96 mmol/L (98-107); Potassium 4.1 mmoL/L (3.5-5.1); Sodium 133 mmol/L (136-145)
[2023-06-06 10:46] LABS: Blood Urea Nitrogen 21 mg/dl (7-17); Estimated Glomerular Filt Rate 44 ml/min (>60); GFR (African American) 53 ML/MIN (>60)
[2023-06-06 10:47] LABS: Alanine Aminotransferase 26 U/L (12-78); Albumin Level 3.9 g/dl (3.5-5.0); Alkaline Phosphatase 97 U/L (38-126); Anion Gap 14.1 mEq/L (5-15); Aspartate Amino Transferase 29 U/L (14-36); Bilirubin,Direct 0.3 mg/dl (0.0-0.4); Bilirubin,Indirect 0.4 mg/dL (0.0-0.9); Bilirubin,Total 0.7 mg/dl (0.2-1.3); Bilirubin,Unconjugated 0.5 mg/dL (0.0-1.1); Carbon Dioxide 27 mmol/L (22.0-30.0); Cholesterol 144 mg/dl (140-200); Magnesium 1.6 mg/dl (1.6-2.3); Total Protein,Serum 6.5 g/dl (6.3-8.2); Triglycerides 336 mg/dl (30-150); VLDL Cholesterol 67 mg/dL (0-40)
[2023-06-06 10:48] LABS: Chol/HDL Ratio 4.5 (1-3.5); HDL Cholesterol 32 mg/dl (40-60)
[2023-06-06 10:57] LABS: Glucose 411 mg/dl (74-100)
[2023-06-06 10:59] LABS: Direct LDL Cholesterol 61.14 mg/dL (100-129)
[2023-06-06 11:03] LABS: Free T4 (Free Thyroxine) 1.26 ng/dl (0.78-2.19)
[2023-06-06 11:16] LABS: Thyroid Stimulating Hormone 2.09 uIU/mL (0.465-4.68)
== END ==
PROVIDERS: PCP Internal Medicine; Visit Provider Nurse Practitioner
DX: I11.9 Hypertensive heart disease without heart failure (principal); I25.10 Atherosclerotic heart disease of native coronary artery without angina pectoris; I73.9 Peripheral vascular disease, unspecified; E11.9 Type 2 diabetes mellitus without complications; E78.5 Hyperlipidemia, unspecified; Z95.1 Presence of aortocoronary bypass graft; Z79.4 Long term (current) use of insulin
CPT/HCPCS: 36415; 80048; 80061; 80076; 83735; 84439; 84443; 85025

== ENCOUNTER → 2023-07-03 11:17 | Outpatient (CLI) | payer MEDICARE, SELFPAY ==
[2023-07-03 11:26] LABS: Microscopic, Urine URINE MICROSCOPIC (MICROSCOPIC)
--- NOTE | 2023-07-03 11:42 | CT_ITS ---
FINAL REPORT TECHNIQUE: multiple axial CT images were performed from the foramen magnum to the vertex without enhancement. CLINICAL HISTORY: CONFUSION COMPARISON: None FINDINGS: The ventricles are enlarged. There is moderate age-appropriate atrophy. There is a physiologic calcification in the right basal ganglia. There is encephalomalacia of the right posterior parietal lobe consistent with sequela of prior infarct. There is no acute hemorrhage, mass effect, or edema. The paranasal sinuses are well aerated. IMPRESSION: Atrophy and chronic changes without acute process. Reviewed, Interpreted and Dictated by Dayton Early MD Transcribed by Deloris Donahue Authenticated and [facility]
--- NOTE | 2023-07-03 11:43 | XR_ITS ---
FINAL REPORT CLINICAL HISTORY: FOOT PAIN FINDINGS: LEFT FOOT Three views of the left foot demonstrate no acute fracture or dislocation. Bones are osteopenic. The visualized joint spaces are normally aligned. The soft tissues are unremarkable. IMPRESSION: No acute bony abnormality. Reviewed, Interpreted and Dictated by Dayton Early MD Transcribed by Maria Del Carmen Aguilera Authenticated and [facility]
--- NOTE | 2023-07-03 11:43 | XR_ITS ---
FINAL REPORT CLINICAL HISTORY: COUGH COMPARISON: 02/24/2020 FINDINGS: 2 views of the chest were obtained . The heart is at the upper limits of normal in size. Patient is status post median sternotomy. The mediastinum is within normal limits. The lungs are clear. There is no pneumothorax. Osseous structures demonstrate thoracic scoliosis convex to the right of approximately 40 degrees. IMPRESSION: No acute cardiopulmonary process. Reviewed, Interpreted and Dictated by Dayton Early MD Transcribed by Maria Del Carmen Aguilera Authenticated and [facility]
[2023-07-03 11:45] LABS: Appearance,Urine SL CLOUDY (Clear); Bilirubin,Urine Negative (Negative); Blood, Urine 1+ (Negative); Color,Urine YELLOW (Yellow); Glucose,Urine (UA) 3+ (Negative); Ketones,Urine TRACE (Negative); Leukocyte Esterase,Urine Negative (Negative); Nitrate,Urine Negative (Negative); PH,Urine 5.5 (5.0-8.5); Protein,Urine 1+ (Negative); Urobilinogen,Urine 0.2 EU/dl (0.2)
[2023-07-03 11:46] LABS: Basophils % 0.1 % (0.1-2.0); Eosinophils # 0.1 K/mm3 (0.0-0.4); Eosinophils % 0.9 % (0.1-12.0); Hematocrit 40.5 % (37.0-47.0); Hemoglobin 14.1 g/dL (12.2-16.2); Lymphocytes # 1.1 K/mm3 (0.7-4.5); Lymphocytes % 7.6 % (10-50); Mean Corpuscular HGB Conc 34.7 g/dL (31.8-35.4); Mean Corpuscular Hemoglobin 30.4 pg (27.0-31.2); Mean Corpuscular Volume 87.7 fl (81-99); Mean Platelet Volume 7.6 fl (7.4-10.4); Monocytes # 0.5 K/mm3 (0.1-1.0); Monocytes % 3.4 % (1.7-9.3); Neutrophils # 12.9 K/mm3 (1.8-7.8); Platelet Count 295 K/mm3 (142-424); Red Blood Count 4.62 M/mm3 (4.20-5.40); Red Cell Distribution Width 14.6 % (11.5-17.5); White Blood Count 14.6 K/mm3 (4.8-10.8)
[2023-07-03 11:49] LABS: MANUAL DIFFERENTIAL MANUAL DIFFERENTIAL (MANUAL DIFF)
[2023-07-03 11:53] LABS: Chloride 99 mmol/L (98-107); Potassium 4.2 mmoL/L (3.5-5.1); Sodium 135 mmol/L (136-145)
[2023-07-03 11:55] LABS: WBC,Urine Occasional #/hpf (0-3)
[2023-07-03 11:56] LABS: Alanine Aminotransferase 31 U/L (12-78); Alkaline Phosphatase 106 U/L (38-126); Anion Gap 15.2 mEq/L (5-15); Aspartate Amino Transferase 43 U/L (14-36); Bacteria,Urine Trace /lpf; Bilirubin,Total 0.8 mg/dl (0.2-1.3); Blood Urea Nitrogen 22 mg/dl (7-17); Calcium 9.1 mg/dl (8.4-10.2); Carbon Dioxide 25 mmol/L (22.0-30.0); Estimated Glomerular Filt Rate 44 ml/min (>60); GFR (African American) 53 ML/MIN (>60); Glucose 383 mg/dl (74-100); Transitional Epi Cells,Urine OCC #/lpf (0-3); Yeast,Urine Occasional /lpf
[2023-07-03 11:57] LABS: Albumin Level 4.4 g/dl (3.5-5.0); Albumin/Globulin Ratio 1.4 (1.1-1.8); Globulin 3.1 g/dL (1.3-3.2); Total Protein,Serum 7.5 g/dl (6.3-8.2)
[2023-07-03 11:59] LABS: Lymphocytes % 8 % (10-50); Monocytes % 3 % (2-9); Neutrophils % 89 % (42-76); Platelet Estimate Normal; RBC Morphology Normal; Total Cells Counted 100
[2023-07-03 12:15] LABS: Erythrocyte Sedimentation Rate 20 mm/hr (0-30)
== END ==
PROVIDERS: PCP Internal Medicine; Visit Provider Internal Medicine
DX: R50.9 Fever, unspecified; L03.032 Cellulitis of left toe; E11.59 Type 2 diabetes mellitus with other circulatory complications; Z79.4 Long term (current) use of insulin; R41.0 Disorientation, unspecified; R05.9 Cough, unspecified; M79.672 Pain in left foot
CPT/HCPCS: 36415; 70450; 71046; 73630; 80053; 81001; 85007; 85025; 85651; 87040

== ENCOUNTER 2023-12-19 16:37 | Outpatient (CLI) | payer MEDICARE, SELFPAY ==
[2023-12-19 17:54] LABS: Alanine Aminotransferase 21 U/L (12-78); Albumin Level 3.6 g/dl (3.5-5.0); Albumin/Globulin Ratio 1.4 (1.1-1.8); Alkaline Phosphatase 72 U/L (38-126); Aspartate Amino Transferase 24 U/L (14-36); Bilirubin,Total 0.8 mg/dl (0.2-1.3); Blood Urea Nitrogen 14 mg/dl (7-17); Calcium 9.4 mg/dl (8.4-10.2); Carbon Dioxide 27 mmol/L (22.0-30.0); Chloride 104 mmol/L (98-107); Chol/HDL Ratio 3.3 (1-3.5); Cholesterol 137 mg/dl (140-200); Estimated Glomerular Filt Rate 54 ml/min (>60); GFR (African American) 65 ML/MIN (>60); Globulin 2.6 g/dL (1.3-3.2); Glucose 122 mg/dl (74-100); HDL Cholesterol 41 mg/dl (40-60); Sodium 140 mmol/L (136-145); Total Protein,Serum 6.2 g/dl (6.3-8.2); Triglycerides 219 mg/dl (30-150); VLDL Cholesterol 44 mg/dL (0-40)
[2023-12-19 18:05] LABS: Direct LDL Cholesterol 69.81 mg/dL (100-129)
[2023-12-19 19:10] LABS: Hemoglobin A1C 10.8 % (4.0-6.0)
== END 2023-12-19 23:59 | disposition home or self-care (01) ==
LOC: LAB.DROPOF 16:38
PROVIDERS: PCP Internal Medicine; Visit Provider Internal Medicine
DX: E11.59 Type 2 diabetes mellitus with other circulatory complications (principal); I73.9 Peripheral vascular disease, unspecified; I11.9 Hypertensive heart disease without heart failure; I25.10 Atherosclerotic heart disease of native coronary artery without angina pectoris; E78.5 Hyperlipidemia, unspecified; Z95.1 Presence of aortocoronary bypass graft; Z79.4 Long term (current) use of insulin; Z79.84 Long term (current) use of oral hypoglycemic drugs
CPT/HCPCS: 80053; 80061; 83036

== ENCOUNTER 2024-06-25 16:27 | Outpatient (CLI) | payer MEDICARE, SELFPAY ==
[2024-06-25 17:31] LABS: Basophils # 0.1 K/mm3 (0-0.2); Basophils % 0.6 % (0.1-2.0); Eosinophils # 0.2 K/mm3 (0.0-0.4); Hematocrit 37.9 % (37.0-47.0); Lymphocytes # 3.3 K/mm3 (0.7-4.5); Lymphocytes % 32.4 % (10-50); Mean Corpuscular HGB Conc 34.4 g/dL (31.8-35.4); Mean Corpuscular Hemoglobin 30.5 pg (27.0-31.2); Mean Corpuscular Volume 88.9 fl (81-99); Mean Platelet Volume 7.6 fl (7.4-10.4); Monocytes # 0.6 K/mm3 (0.1-1.0); Monocytes % 5.4 % (1.7-9.3); Neutrophils # 6.1 K/mm3 (1.8-7.8); Neutrophils % 59.6 % (37.0-80.0); Platelet Count 292 K/mm3 (142-424); Red Blood Count 4.26 M/mm3 (4.20-5.40); White Blood Count 10.2 K/mm3 (4.8-10.8)
[2024-06-25 20:21] LABS: Alanine Aminotransferase 18 U/L (12-78); Albumin Level 3.4 g/dl (3.5-5.0); Albumin/Globulin Ratio 1.3 (1.1-1.8); Alkaline Phosphatase 67 U/L (38-126); Anion Gap 10.1 mEq/L (5-15); Aspartate Amino Transferase 26 U/L (14-36); Bilirubin,Total 0.8 mg/dl (0.2-1.3); Blood Urea Nitrogen 17 mg/dl (7-17); Calcium 8.1 mg/dl (8.4-10.2); Carbon Dioxide 31 mmol/L (22.0-30.0); Chloride 102 mmol/L (98-107); Chol/HDL Ratio 3.1 (1-3.5); Cholesterol 102 mg/dl (140-200); Direct LDL Cholesterol 45.03 mg/dL (100-129); Estimated Glomerular Filt Rate 44 ml/min (>60); GFR (African American) 53 ML/MIN (>60); Globulin 2.6 g/dL (1.3-3.2); HDL Cholesterol 33 mg/dl (40-60); Potassium 4.1 mmoL/L (3.5-5.1); Sodium 139 mmol/L (136-145); Triglycerides 113 mg/dl (30-150); VLDL Cholesterol 23 mg/dL (0-40)
[2024-06-25 20:22] LABS: Glucose 31 mg/dl (74-100)
[2024-06-25 20:32] LABS: Hemoglobin A1C 6.7 % (4.0-6.0)
== END 2024-06-25 23:59 | disposition home or self-care (01) ==
LOC: LAB.DROPOF 16:28
PROVIDERS: PCP Internal Medicine; Visit Provider Internal Medicine
DX: I10 Essential (primary) hypertension (principal); E11.59 Type 2 diabetes mellitus with other circulatory complications; E78.5 Hyperlipidemia, unspecified
CPT/HCPCS: 80053; 80061; 83036; 85025

== ENCOUNTER 2024-08-10 10:14 | Observation (INO) | payer MEDICARE, SELFPAY ==
[2024-08-10] VITALS (16 sets, daily range): BP systolic 109–204; BP diastolic 65–97; PULSE 58–81; RESP 16–20; TEMP 36.5–37.1; O2SAT 97–100; BMI 27.2; BMI 23.9
[2024-08-10 11:55] LABS: UTC Influenza A Antigen Negative (Negative); UTC Influenza B Antigen Negative (Negative)
--- NOTE | 2024-08-10 11:56 | EXP.UTC ---
Discharge Plan Disposition Patient Disposition: Still a Patient Prescriptions Prescriptions: No Action gabapentin 300 mg capsule 300 mg PO BID Qty: 60 2RF metoprolol succinate 50 mg tablet extended release 24 hr See Rx Instructions .ROUTE .COMPLEX Qty: 30 11RF Dose Instruction: TAKE ONE TABLET BY MOUTH EVERY DAY Rx Instructions: TAKE ONE TABLET BY MOUTH EVERY DAY atorvastatin 80 mg tablet See Rx Instructions .ROUTE .COMPLEX Qty: 90 1RF Dose Instruction: TAKE ONE TABLET BY MOUTH EVERY DAY AT BEDTIME Rx Instructions: TAKE ONE TABLET BY MOUTH EVERY DAY AT BEDTIME clopidogrel 75 mg tablet See Rx Instructions .ROUTE .COMPLEX Qty: 90 3RF Dose Instruction: TAKE ONE TABLET BY MOUTH EVERY DAY FOR blood thinner Rx Instructions: TAKE ONE TABLET BY MOUTH EVERY DAY FOR blood thinner glipizide 2.5 mg tablet extended release 24hr See Rx Instructions .ROUTE .COMPLEX Qty: 90 1RF Dose Instruction: TAKE ONE TABLET BY MOUTH EVERY DAY Rx Instructions: TAKE ONE TABLET BY MOUTH EVERY DAY losartan-hydrochlorothiazide 50-12.5 mg tablet 1 tab PO DAILY Qty: 90 1RF insulin glargine 100 unit/mL (3 mL) insulin pen 65 unit SQ PM aspirin 81 MG tablet,delayed release (DR/EC) 81 mg PO DAILY Referrals Follow up/Referrals: Jhonatan Wolfe MD [Primary Care Provider] - See instructions Print Language Print Language: Kazakh Discharge ED Provider: Ruma ([facility])Jose D [facility] HPI General Stated complaint: Heavy sweats, Mode of Arrival: Ambulatory Source of Information: Patient and Spouse Limitations: No Limitations Time Seen by Provider: 08/10/24 11:44 Description of Symptoms (Recalled from Triage Doc. by RN): PATIENT C/O CHILLS AND SWEATS X 2-3 DAYS HEENT Symptoms (Recalled from RN notes): No Resp Symptoms (Recalled from RN notes): No Skin Symptoms (Recalled from RN notes): No MS Symptoms (Recalled from RN notes): No Functional Status (Recalled from RN notes): WNL History of Present Illness Provider Complaint: 79-year-old female presents for complaints of heavy sweats and chills for 2 days. states she fell last night striking left shoulder. Patient denies any other symptoms. Related Data Home Medications ?Medication ?Instructions ?Recorded ?Confirmed aspirin 81 mg tablet,delayed 81 mg PO DAILY heart health 12/03/19 07/08/24 release insulin glargine 100 unit/mL (3 65 unit SQ PM Diabetes 03/12/24 07/08/24 mL) subcutaneous pen Previous Rx's ?Medication ?Instructions ?Recorded metoprolol succinate 50 mg See Rx Instructions .Route 09/04/23 tablet,extended release 24 hr .COMPLEX #30 tabs gabapentin 300 mg capsule 300 mg PO BID #60 caps 04/11/24 atorvastatin 80 mg tablet See Rx Instructions .Route 04/29/24 .COMPLEX #90 tabs clopidogrel 75 mg tablet See Rx Instructions .Route 06/10/24 .COMPLEX #90 tabs glipizide 2.5 mg tablet, extended See Rx Instructions .Route 06/11/24 release 24 hr .COMPLEX #90 tabs losartan 50 mg-hydrochlorothiazide 1 tab PO DAILY #90 tabs 08/05/24 12.5 mg tablet Allergies Allergy/AdvReac Type Severity Reaction Status Date / Time rivaroxaban (From Xarelto) Allergy Intermediate swelling Verified 06/25/24 09:31 of lower ext. Worker's Comp Is this a Worker's Comp case?: No [facility] Disclaimer: The information contained in this section may have been updated after the patient was seen, as this information can be updated by other users. Medical History , REFINISH TECHNICIAN) Hypertension HLD (hyperlipidemia) HHD (hypertensive heart disease) Surgical History , REFINISH TECHNICIAN) S/P CABG (coronary artery bypass graft) Social History , REFINISH TECHNICIAN) Smoking Status: Never smoker second hand exposure: No alcohol intake: current alcohol intake frequency: holidays/special occasions only substance use type: denies use current occupational status: retired Travel in the last 8 weeks: None household members: spouse housing: house current occupational exposures/hazards: No caffeine: Yes Have you lived/traveled outside [place] in past 30 days?: No Contact w/someone who lives/traveled outside [place] past 30 days?: No Exposure to someone with infectious disease in past 14 days?: No Do you have a fever (greater than 100.4 F or 38 C)?: No Have you tested positive for COVID-19: No Exposed to someone with COVID-19 in past 14 days?: No Do you have a sore throat?: No Do you have a cough?: No Do you have any weakness?: No Do you have any diarrhea?: No Are you experiencing any unusual bleeding?: No Do you have any muscle aches/pain?: No Do you have any abdominal pain?: No Are you experiencing loss of taste or smell?: No ROS Obtained: Yes Systems reviewed as appropriate & no additional complaints except as documented Physical Exam General General appearance: alert and in no apparent distress Head Head exam: atraumatic Eye Eye exam: Present normal appearance ENT ENT exam: Present normal exam Respiratory Respiratory exam: Present normal lung sounds bilaterally Cardiovascular Cardiovascular exam: Present regular rate Neurological Exam Neurological exam: Present alert and oriented X3 Skin Skin exam: Present warm and intact Medical Decision Making Medical Records Medical records reviewed: Yes I reviewed the patient's medical records. Screening: Per USPSTF and CDC recommendations, given the prevalence of disease in our region, it is our hospital?s policy to screen for HIV and viral Hepatitis for all patients aged 18 and over and those with ongoing risk factors. Joo Inquiry Pt receiving controlled substance: No Joo was queried for this patient: No Vital Signs: 08/10/24 11:35 Temperature 97.7 F Temperature Source Oral Pulse Rate [Left Brachial] 69 Respiratory Rate 18 Blood Pressure [Left Arm] 174/65 H Blood Pressure Mean [Left Arm] 101 Blood Pressure Source [Left Arm] Automatic Cuff Blood Pressure Position [Left Arm] Sitting 02 Sat by Pulse Oximetry 98 Oxygen Delivery Method Room Air Lab Data Lab results reviewed: Yes I reviewed the patient's lab results. Lab Results 08/10/24 11:53: Influenza Type A Ag Negative, Influenza Type B Ag Negative Physician Consults Physician Consulted: Report given to Jess Time: 11:59 Reason -: Pt condition Comment/Response: Patient sent to the ER for evaluation due to blood sugar being 45.
--- NOTE | 2024-08-10 12:15 | XR_ITS ---
PROCEDURE INFORMATION: Exam: XR Left Shoulder Exam date and time: 08/10/2024 12:51 PM Age: 79 years old Clinical indication: Injury or trauma; Fall; Blunt trauma (contusions or hematomas); Shoulder; Left TECHNIQUE: Imaging protocol: Radiologic exam of the left shoulder. Views: 2 or more views. COMPARISON: NM BONE SCAN WHOLE BODY 03/13/2020 12:32 PM FINDINGS: Bones/joints: Degenerative changes in the acromioclavicular joint and glenohumeral joint. There is no evidence of acute fracture.There is no evidence of malalignment or dislocation. Median sternotomy Soft tissues: Normal. IMPRESSION: There is no evidence of acute fracture.There is no evidence of malalignment or dislocation.
--- NOTE | 2024-08-10 12:16 | CT_ITS ---
PROCEDURE INFORMATION: Exam: CT Head Without Contrast Exam date and time: 08/10/2024 12:53 PM Age: 79 years old Clinical indication: Injury or trauma; Fall; Blunt trauma (contusions or hematomas) TECHNIQUE: Imaging protocol: Computed tomography of the head without contrast. Radiation optimization: All CT scans at this facility use at least one of these dose optimization techniques: automated exposure control; mA and/or kV adjustment per patient size (includes targeted exams where dose is matched to clinical indication); or iterative reconstruction. COMPARISON: CT HEAD/BRAIN WO CON 07/03/2023 11:59 AM FINDINGS: Brain: No acute intracranial hemorrhage.. There is moderate diffuse heterogeneity of the white matter attenuation, consistent with chronic white matter ischemic changes. Moderate cerebral atrophy. Stable Well delineated low-attenuation in the right posterior parietal region consistent with prior infarction Cerebral ventricles: No ventriculomegaly. Paranasal sinuses: Visualized sinuses are unremarkable. No fluid levels. Mastoid air cells: Visualized mastoid air cells are well aerated. Bones: Unremarkable. No acute fracture. Soft tissues: Unremarkable. IMPRESSION: No acute intracranial hemorrhage..
--- NOTE | 2024-08-10 12:18 | PC.NURSE ---
fsbs 45
--- NOTE | 2024-08-10 12:24 | [facility].EDGENADL ---
Discharge Plan Disposition Patient Disposition: Still a Patient Clinical Impressions Clinical Impression: Hypoglycemia Diabetes Qualifiers: Diabetes mellitus type: type 2 Diabetes mellitus long-term insulin use: with rubble placer use Diabetes mellitus complication status: with neurologic complications Diabetes mellitus complication detail: with polyneuropathy Qualified Code(s): E11.42 - Type 2 diabetes mellitus with diabetic polyneuropathy Discharge ED Provider: Donny Silva General Adult HPI <Aurelia Alvarez (ED), TELEGRAPH OFFICE TELEPHONE CLERK - Last Filed: 08/10/24 15:00> General Chief complaint: Weakness Stated complaint: Heavy sweats, Time Seen by Provider: 08/10/24 11:44 Mode of Arrival: Wheelchair Source of Information: Patient and Spouse Limitations: No Limitations Description of Symptoms (Recalled from ER Triage Doc. by RN): low blood sugar,fall. weakness. History of Present Illness HPI narrative: This is a 79-year-old female who came from the urgent treatment center for weakness and sweats. They did check her glucose at [facility] and it was 45. They gave her some orange juice and her sugar here is 43. Patient does tell me that she has been eating and drinking normally. She takes 60 units of insulin nightly but does not check her glucose except for once a month. She does also tell me she fell last night on a left shoulder she does have a bruise on her left shoulder she says it does hurt but she has range of motion. She says it is sore . She does take aspirin daily. She also has history of hypertension hyperlipidemia she has had a CABG in the past. Related Data Home Medications ?Medication ?Instructions ?Recorded ?Confirmed aspirin 81 mg tablet,delayed 81 mg PO DAILY 12/03/19 08/10/24 release insulin glargine 100 unit/mL (3 65 unit SQ HS 03/12/24 08/10/24 mL) subcutaneous pen atorvastatin 80 mg tablet 80 mg PO HS 08/10/24 08/10/24 clopidogrel 75 mg tablet 75 mg PO DAILY 08/10/24 08/10/24 glipizide 2.5 mg tablet, extended 2.5 mg PO DAILY 08/10/24 08/10/24 release 24 hr metoprolol succinate 50 mg 50 mg PO DAILY 08/10/24 08/10/24 tablet,extended release 24 hr Previous Rx's ?Medication ?Instructions ?Recorded gabapentin 300 mg capsule 300 mg PO BID #60 caps 04/11/24 losartan 50 mg-hydrochlorothiazide 1 tab PO DAILY #90 tabs 08/05/24 12.5 mg tablet Allergies Allergy/AdvReac Type Severity Reaction Status Date / Time rivaroxaban (From Xarelto) Allergy Intermediate swelling Verified 06/25/24 09:31 of lower ext. PFSH <Aurelia Alvarez (ED), TELEGRAPH OFFICE TELEPHONE CLERK - Last Filed: 08/10/24 15:00> PFS Disclaimer: The information contained in this section may have been updated after the patient was seen, as this information can be updated by other users. Medical History , TELEGRAPH OFFICE TELEPHONE CLERK) Hypertension HLD (hyperlipidemia) HHD (hypertensive heart disease) Surgical History , TELEGRAPH OFFICE TELEPHONE CLERK) S/P CABG (coronary artery bypass graft) Social History , TELEGRAPH OFFICE TELEPHONE CLERK) Smoking Status: Never smoker second hand exposure: No alcohol intake: current alcohol intake frequency: holidays/special occasions only substance use type: denies use current occupational status: retired Travel in the last 8 weeks: None household members: spouse housing: house current occupational exposures/hazards: No caffeine: Yes Have you lived/traveled outside [place] in past 30 days?: No Contact w/someone who lives/traveled outside US past 30 days?: No Exposure to someone with infectious disease in past 14 days?: No Do you have a fever (greater than 100.4 F or 38 C)?: No Have you tested positive for COVID-19: No Exposed to someone with COVID-19 in past 14 days?: No Do you have a sore throat?: No Do you have a cough?: No Do you have any weakness?: No Do you have any diarrhea?: No Are you experiencing any unusual bleeding?: No Do you have any muscle aches/pain?: No Do you have any abdominal pain?: No Are you experiencing loss of taste or smell?: No Other Medical History Have you received the Flu Vaccine for this season: No Have you received the Pneumonia Vaccine: Yes <Aurelia Alvarez (ED), TELEGRAPH OFFICE TELEPHONE CLERK - Last Filed: 08/10/24 15:00> ROS Obtained: Yes Systems reviewed as appropriate & no additional complaints except as documented Constitutional Constitutional: Reports as per HPI Physical Exam <Aurelia Alvarez (ED), TELEGRAPH OFFICE TELEPHONE CLERK - Last Filed: 08/10/24 15:00> General General appearance: alert and in no apparent distress Head Head exam: atraumatic and normocephalic Eye Eye exam: Present normal appearance, PERRL and EOMI ENT ENT exam: Present normal exam, normal oropharynx and mucous membranes moist Neck Neck exam: Present normal inspection, full ROM and trachea midline Chest Chest inspection: Present normal inspection Respiratory Respiratory exam: Present normal lung sounds bilaterally Cardiovascular Cardiovascular exam: Present regular rate, normal rhythm, normal heart sounds, +S1 and +S2 Abdominal Exam Abdominal exam: Present soft and normal bowel sounds Extremities Exam Extremities exam: Present full ROM, normal capillary refill and other (Left shoulder with bruising but full range of motion) Back Exam Back exam: Present normal inspection Neurological Exam Neurological exam: Present alert, oriented X3 and normal gait Skin Skin exam: Present warm, dry, intact and other (Bruising to left shoulder) Medical Decision Making <Aurelia Alvarez (ED), TELEGRAPH OFFICE TELEPHONE CLERK - Last Filed: 08/10/24 15:00> Medical Records Screening: Per USPSTF and CDC recommendations, given the prevalence of disease in our region, it is our hospital?s policy to screen for HIV and viral Hepatitis for all patients aged 18 and over and those with ongoing risk factors. Joo Inquiry Pt receiving controlled substance: No Joo was queried for this patient: No Vital Signs: 08/10/24 11:35 08/10/24 12:09 08/10/24 13:06 Temperature 97.7 F 98.1 F Temperature Source Oral Oral Pulse Rate 64 Pulse Rate [Left Brachial] 69 62 Respiratory Rate 18 18 Blood Pressure Blood Pressure [Left Arm] 174/65 H 165/76 H Blood Pressure Mean [Left Arm] 101 105 Blood Pressure Source [Left Arm] Automatic Cuff Blood Pressure Position [Left Arm] Sitting 02 Sat by Pulse Oximetry 98 99 100 Oxygen Delivery Method Room Air Room Air 08/10/24 13:15 08/10/24 13:30 08/10/24 13:31 Temperature Temperature Source Pulse Rate 68 68 69 Pulse Rate [Left Brachial] Respiratory Rate Blood Pressure 204/97 H Blood Pressure [Left Arm] Blood Pressure Mean [Left Arm] Blood Pressure Source [Left Arm] Blood Pressure Position [Left Arm] 02 Sat by Pulse Oximetry 98 100 100 Oxygen Delivery Method 08/10/24 13:45 08/10/24 14:00 08/10/24 14:01 Temperature Temperature Source Pulse Rate 64 58 L 65 Pulse Rate [Left Brachial] Respiratory Rate Blood Pressure 178/72 H Blood Pressure [Left Arm] Blood Pressure Mean [Left Arm] Blood Pressure Source [Left Arm] Blood Pressure Position [Left Arm] 02 Sat by Pulse Oximetry 99 99 97 Oxygen Delivery Method 08/10/24 14:15 08/10/24 14:30 08/10/24 14:45 Temperature Temperature Source Pulse Rate 67 62 62 Pulse Rate [Left Brachial] Respiratory Rate Blood Pressure 169/75 H Blood Pressure [Left Arm] Blood Pressure Mean [Left Arm] Blood Pressure Source [Left Arm] Blood Pressure Position [Left Arm] 02 Sat by Pulse Oximetry 98 99 98 Oxygen Delivery Method Lab Data Lab Results 08/10/24 11:53: Influenza Type A Ag Negative, Influenza Type B Ag Negative 08/10/24 12:30: WBC 14.1 H, RBC 4.21, Hgb 13.4, Hct 39.1, MCV 92.9, MCH 31.8 H, MCHC 34.3, RDW 15.8, Plt Count 273, MPV 8.9, Neut % (Auto) 85.1 H, Lymph % (Auto) 9.6 L, [place] % (Auto) 4.8, Eos % (Auto) 0.1, Baso % (Auto) 0.1, Neut # (Auto) 12.0 H, Lymph # (Auto) 1.4, [place] # (Auto) 0.7, Eos # (Auto) 0.0, Baso # (Auto) 0.0, Sodium 137, Potassium 4.3, Chloride 107, Carbon Dioxide 31 H, Anion Gap 3.3 L, BUN 16, Creatinine 1.00, Estimated Creat Clear 50, Estimated GFR 54 L, Est GFR ( Amer) 65, Glucose 63 L, Calcium 8.8, Total Bilirubin 0.6, AST 39 H, ALT 27, Alkaline Phosphatase 85, Total Protein 6.3, Albumin 3.4 L, Globulin 2.9, Albumin/Globulin Ratio 1.2, HIV Ag/Ab Combo Qual Negative 08/10/24 12:40: Urine Color Yellow, Urine Appearance Clear, Urine pH 6.0, Ur Specific [place] 1.020, Urine Protein Negative, Urine Glucose (UA) 2+, Urine Ketones Negative, Urine Blood Negative, Urine Nitrate Negative, Urine Bilirubin Negative, Urine Urobilinogen 0.2, Ur Leukocyte Esterase Trace, Urine RBC None, Urine WBC 3-5, Ur Squamous Epith Cells 3-5, Urine Bacteria None 08/10/24 12:30 08/10/24 12:30 Orders (Tests/Meds): ED MEDICATIONS Generic Name Dose Route Start Last Admin Trade Name Freq PRN Reason Stop Dose Admin Acetaminophen 650 mg 08/10/24 14:50 Acetaminophen 325mg Tab PO 09/09/24 14:49 Q4HP PRN Fever or Mild Pain (1-3) Enoxaparin Sodium 40 mg 08/11/24 09:00 Enoxaparin 40mg/0.4ml Syringe SUBCUT 09/10/24 08:59 DAILY [facility] Insulin Human Lispro 0 unit 08/10/24 16:30 Humalog 100 Units/Ml 10ml Vial (Ssi) SUBCUT 09/09/24 16:29 ACHS [facility] Protocol Ondansetron HCl 4 mg 08/10/24 14:50 Ondansetron 4mg/2ml Vial IV 09/09/24 14:49 Q8HP PRN Nausea Discontinued Medications Generic Name Dose Route Start Last Admin Trade Name Freq PRN Reason Stop Dose Admin Dextrose 50 ml 08/10/24 12:15 08/10/24 12:30 Dextrose 50% 50ml Syringe (Crash Cart) IVP 08/10/24 12:16 50 ml ONCE ONE Administration ORDERS Category Date Time Status CT cervical spine wo con Stat Cat Scan 08/10/24 12:[address] head/brain wo con Stat Cat Scan 08/10/24 12:16 Completed Shoulder XR left minimum 2 views [XR shoulder LT min 2V Exams 08/10/24 12:15 Completed ] Stat CBC [Complete Blood Count Auto Diff] Stat Lab 08/10/24 12:30 Results Complete Blood Count Auto Diff AMLAB Lab 08/11/24 06:00 Ordered Complete Blood Count Auto Diff AMLAB Lab 08/12/24 06:00 Ordered Complete Blood Count Auto Diff AMLAB Lab 08/13/24 06:00 Ordered Complete Blood Count Auto Diff AMLAB Lab 08/14/24 06:00 Ordered Complete Blood Count Auto Diff AMLAB Lab 08/15/24 06:00 Ordered Comprehensive Metabolic Panel AMLAB Lab 08/11/24 06:00 Ordered Comprehensive Metabolic Panel AMLAB Lab 08/12/24 06:00 Ordered Comprehensive Metabolic Panel AMLAB Lab 08/13/24 06:00 Ordered Comprehensive Metabolic Panel AMLAB Lab 08/14/24 06:00 Ordered Comprehensive Metabolic Panel AMLAB Lab 08/15/24 06:00 Ordered Comprehensive Metabolic Panel Stat Lab 08/10/24 12:30 Completed Full Resp Panel w/COVID ([facility]) Routine Lab 08/10/24 12:30 Received HIV Combo Stat Lab 08/10/24 12:30 Completed Hemoglobin A1C Routine Lab 08/10/24 12:30 Received Hep C Ab with Reflex to RNA Stat Lab 08/10/24 12:30 Received Lipid Panel AMLAB Lab 08/11/24 06:00 Ordered Magnesium AMLAB Lab 08/11/24 06:00 Ordered Magnesium AMLAB Lab 08/12/24 06:00 Ordered Magnesium AMLAB Lab 08/13/24 06:00 Ordered Magnesium AMLAB Lab 08/14/24 06:00 Ordered Magnesium AMLAB Lab 08/15/24 06:00 Ordered Urinalysis and Microscopic Stat Lab 08/10/24 12:40 Completed Medical Decision Narrative: Insert review patient is a 79-year-old female presenting to the emergency department for evaluation of weakness and sweating. Patient also fell last night striking her left shoulder. She is not on blood thinners except for aspirin and did not hit her head. Patient does have history of hypertension and hyperlipidemia.. Patient is hemodynamically stable and nontoxic-appearing upon arrival, afebrile. Differential diagnosis includes viral illness including flu, hypoglycemia, hyperglycemia, head injury among others. Workup will be conducted with hematologic labs, specific imaging including CT scan of head and neck, shoulder x-ray. Initial inventions include crystalloid bolus, D50 for glucose of 43. Initial workup reviewed by me hematologic labs are remarkable for hypoglycemia with a blood sugar of 43. She initially had a blood glucose of 45 at the urgent treatment center and was given orange juice there. When she arrived to the ED she had a blood sugar of 45 and we gave her an amp of D50 and her repeat blood sugar was 98. Imaging informally interpreted by me and remarkable for nothing acute. Formal imaging read remarkable for nothing acute. Upon repeat evaluation patient feeling better with a blood sugar of 148. I have discussed with Dr. Silva and hospital medicine and patient will be placed in the hospital for observation for management of her diabetes medications. She takes 60 units of insulin and a sulfonorea currently. Patient placed in observation. Patient agreeable to admission. <Donny Silva MD - Last Filed: 08/10/24 15:16> Vital Signs: 08/10/24 11:35 08/10/24 12:09 08/10/24 13:06 Temperature 97.7 F 98.1 F Temperature Source Oral Oral Pulse Rate 64 Pulse Rate [Left Brachial] 69 62 Respiratory Rate 18 18 Blood Pressure Blood Pressure [Left Arm] 174/65 H 165/76 H Blood Pressure Mean [Left Arm] 101 105 Blood Pressure Source [Left Arm] Automatic Cuff Blood Pressure Position [Left Arm] Sitting 02 Sat by Pulse Oximetry 98 99 100 Oxygen Delivery Method Room Air Room Air 08/10/24 13:15 08/10/24 13:30 08/10/24 13:31 Temperature Temperature Source Pulse Rate 68 68 69 Pulse Rate [Left Brachial] Respiratory Rate Blood Pressure 204/97 H Blood Pressure [Left Arm] Blood Pressure Mean [Left Arm] Blood Pressure Source [Left Arm] Blood Pressure Position [Left Arm] 02 Sat by Pulse Oximetry 98 100 100 Oxygen Delivery Method 08/10/24 13:45 08/10/24 14:00 08/10/24 14:01 Temperature Temperature Source Pulse Rate 64 58 L 65 Pulse Rate [Left Brachial] Respiratory Rate Blood Pressure 178/72 H Blood Pressure [Left Arm] Blood Pressure Mean [Left Arm] Blood Pressure Source [Left Arm] Blood Pressure Position [Left Arm] 02 Sat by Pulse Oximetry 99 99 97 Oxygen Delivery Method 08/10/24 14:15 08/10/24 14:30 08/10/24 14:45 Temperature Temperature Source Pulse Rate 67 62 62 Pulse Rate [Left Brachial] Respiratory Rate Blood Pressure 169/75 H Blood Pressure [Left Arm] Blood Pressure Mean [Left Arm] Blood Pressure Source [Left Arm] Blood Pressure Position [Left Arm] 02 Sat by Pulse Oximetry 98 99 98 Oxygen Delivery Method Lab Data Lab Results 08/10/24 11:53: Influenza Type A Ag Negative, Influenza Type B Ag Negative 08/10/24 12:30: WBC 14.1 H, RBC 4.21, Hgb 13.4, Hct 39.1, MCV 92.9, MCH 31.8 H, MCHC 34.3, RDW 15.8, Plt Count 273, MPV 8.9, Neut % (Auto) 85.1 H, Lymph % (Auto) 9.6 L, [place] % (Auto) 4.8, Eos % (Auto) 0.1, Baso % (Auto) 0.1, Neut # (Auto) 12.0 H, Lymph # (Auto) 1.4, [place] # (Auto) 0.7, Eos # (Auto) 0.0, Baso # (Auto) 0.0, Sodium 137, Potassium 4.3, Chloride 107, Carbon Dioxide 31 H, Anion Gap 3.3 L, BUN 16, Creatinine 1.00, Estimated Creat Clear 50, Estimated GFR 54 L, Est GFR ( Amer) 65, Glucose 63 L, Calcium 8.8, Total Bilirubin 0.6, AST 39 H, ALT 27, Alkaline Phosphatase 85, Total Protein 6.3, Albumin 3.4 L, Globulin 2.9, Albumin/Globulin Ratio 1.2, HIV Ag/Ab Combo Qual Negative 08/10/24 12:40: Urine Color Yellow, Urine Appearance Clear, Urine pH 6.0, Ur Specific [place] 1.020, Urine Protein Negative, Urine Glucose (UA) 2+, Urine Ketones Negative, Urine Blood Negative, Urine Nitrate Negative, Urine Bilirubin Negative, Urine Urobilinogen 0.2, Ur Leukocyte Esterase Trace, Urine RBC None, Urine WBC 3-5, Ur Squamous Epith Cells 3-5, Urine Bacteria None Orders (Tests/Meds): ED MEDICATIONS Generic Name Dose Route Start Last Admin Trade Name Freq PRN Reason Stop Dose Admin Acetaminophen 650 mg 08/10/24 14:50 Acetaminophen 325mg Tab PO 09/09/24 14:49 Q4HP PRN Fever or Mild Pain (1-3) Enoxaparin Sodium 40 mg 08/11/24 09:00 Enoxaparin 40mg/0.4ml Syringe SUBCUT 09/10/24 08:59 DAILY [facility] Insulin Human Lispro 0 unit 08/10/24 16:30 Humalog 100 Units/Ml 10ml Vial (Ssi) SUBCUT 09/09/24 16:29 ACHS [facility] Protocol Ondansetron HCl 4 mg 08/10/24 14:50 Ondansetron 4mg/2ml Vial IV 09/09/24 14:49 Q8HP PRN Nausea Discontinued Medications Generic Name Dose Route Start Last Admin Trade Name Freq PRN Reason Stop Dose Admin Dextrose 50 ml 08/10/24 12:15 08/10/24 12:30 Dextrose 50% 50ml Syringe (Crash Cart) IVP 08/10/24 12:16 50 ml ONCE ONE Administration ORDERS Category Date Time Status CT cervical spine wo con Stat Cat Scan 08/10/24 12:[address] head/brain wo con Stat Cat Scan 08/10/24 12:16 Completed Shoulder XR left minimum 2 views [XR shoulder LT min 2V Exams 08/10/24 12:15 Completed ] Stat CBC [Complete Blood Count Auto Diff] Stat Lab 08/10/24 12:30 Results Complete Blood Count Auto Diff AMLAB Lab 08/11/24 06:00 Ordered Complete Blood Count Auto Diff AMLAB Lab 08/12/24 06:00 Ordered Complete Blood Count Auto Diff AMLAB Lab 08/13/24 06:00 Ordered Complete Blood Count Auto Diff AMLAB Lab 08/14/24 06:00 Ordered Complete Blood Count Auto Diff AMLAB Lab 08/15/24 06:00 Ordered Comprehensive Metabolic Panel AMLAB Lab 08/11/24 06:00 Ordered Comprehensive Metabolic Panel AMLAB Lab 08/12/24 06:00 Ordered Comprehensive Metabolic Panel AMLAB Lab 08/13/24 06:00 Ordered Comprehensive Metabolic Panel AMLAB Lab 08/14/24 06:00 Ordered Comprehensive Metabolic Panel AMLAB Lab 08/15/24 06:00 Ordered Comprehensive Metabolic Panel Stat Lab 08/10/24 12:30 Completed Full Resp Panel w/COVID ([facility]) Routine Lab 08/10/24 12:30 Received HIV Combo Stat Lab 08/10/24 12:30 Completed Hemoglobin A1C Routine Lab 08/10/24 12:30 Received Hep C Ab with Reflex to RNA Stat Lab 08/10/24 12:30 Received Lipid Panel AMLAB Lab 08/11/24 06:00 Ordered Magnesium AMLAB Lab 08/11/24 06:00 Ordered Magnesium AMLAB Lab 08/12/24 06:00 Ordered Magnesium AMLAB Lab 08/13/24 06:00 Ordered Magnesium AMLAB Lab 08/14/24 06:00 Ordered Magnesium AMLAB Lab 08/15/24 06:00 Ordered Urinalysis and Microscopic Stat Lab 08/10/24 12:40 Completed Medical Decision Narrative: Insert review patient is a 79-year-old female presenting to the emergency department for evaluation of weakness and sweating. Patient also fell last night striking her left shoulder. She is not on blood thinners except for aspirin and did not hit her head. Patient does have history of hypertension and hyperlipidemia.. Patient is hemodynamically stable and nontoxic-appearing upon arrival, afebrile. Differential diagnosis includes viral illness including flu, hypoglycemia, hyperglycemia, head injury among others. Workup will be conducted with hematologic labs, specific imaging including CT scan of head and neck, shoulder x-ray. Initial inventions include crystalloid bolus, D50 for glucose of 43. Initial workup reviewed by me hematologic labs are remarkable for hypoglycemia with a blood sugar of 43. She initially had a blood glucose of 45 at the urgent treatment center and was given orange juice there. When she arrived to the ED she had a blood sugar of 45 and we gave her an amp of D50 and her repeat blood sugar was 98. Imaging informally interpreted by me and remarkable for nothing acute. Formal imaging read remarkable for nothing acute. Upon repeat evaluation patient feeling better with a blood sugar of 148. I have discussed with Dr. Silva and hospital medicine and patient will be placed in the hospital for observation for management of her diabetes medications. She takes 60 units of insulin and a sulfonorea currently. Patient placed in observation. Patient agreeable to admission. I was consulted by the LOBO, and we discussed the complexity of the problems being addressed. I approved the treatment and management plan for this patient's care in the emergency department, thus performing a substantive portion of the medical decision making. Donny Silva MD Critical Care <Aurelia Alvarez (ED), TELEGRAPH OFFICE TELEPHONE CLERK - Last Filed: 08/10/24 15:00> Critical Care Time Critical Care Time: No
[2024-08-10] MEDS: DEXTROSE 50% 50ML SYRINGE (CRASH CART) 50 ML IVP (12:30)
[2024-08-10 12:37] LABS: Adenovirus,PCR Not Detected (NotDetected); Bordetella Pertussis Not Detected (NotDetected); Chlamydophila Pneumoniae, PCR Not Detected (NotDetected); Coronavirus 19, PCR Not Detected (NotDetected); Coronavirus 229E Not Detected (NotDetected); Coronavirus NL63 Not Detected (NotDetected); Coronavirus OC43 Not Detected (NotDetected); Coronovirus HKU1,PCR Not Detected (NotDetected); Human Metapneumovirus Not Detected (NotDetected); Influenza A, PCR Not Detected (NotDetected); Influenza AH1, 2009 Not Detected (NotDetected); Influenza AH1, PCR Not Detected (NotDetected); Influenza AH3,PCR Not Detected (NotDetected); Influenza B, PCR Not Detected (NotDetected); Mycoplasma Pneumoniae, PCR Not Detected (NotDetected); Parainfluenza 1, PCR Not Detected (NotDetected); Parainfluenza 2, PCR Not Detected (NotDetected); Parainfluenza 3, PCR Not Detected (NotDetected); Parainfluenza 4, PCR Not Detected (NotDetected); Respiratory Syncytial Virus Not Detected (NotDetected); Rhinovirus/Enterovirus Not Detected (NotDetected)
[2024-08-10 12:49] LABS: Albumin Level 3.4 g/dl (3.5-5.0); Chloride 107 mmol/L (98-107); Potassium 4.3 mmoL/L (3.5-5.1); Sodium 137 mmol/L (136-145)
--- NOTE | 2024-08-10 12:49 | CT_ITS ---
PROCEDURE INFORMATION: Exam: CT Cervical Spine Without Contrast Exam date and time: 08/10/2024 12:55 PM Age: 79 years old Clinical indication: Injury or trauma; Fall; Blunt trauma; Additional info: Fell TECHNIQUE: Imaging protocol: Computed tomography of the cervical spine without contrast. Radiation optimization: All CT scans at this facility use at least one of these dose optimization techniques: automated exposure control; mA and/or kV adjustment per patient size (includes targeted exams where dose is matched to clinical indication); or iterative reconstruction. COMPARISON: DX [id number] XR cervical spine 5V 05/07/2018 10:00 AM FINDINGS: Bones: No acute fracture of the cervical spine. No subluxation or dislocation of the cervical spine. Intervertebral disc space narrowing C4 through C6 may represent degenerative disc disease.. Anterior osteophyte formation C4 through C6. Posterior osteophyte formation C3 through C6. Degenerative changes in the facets at multiple levels. Degenerative changes at C1/C2. Severe degenerative changes in the temporomandibular joints Lungs: Lung apices are normal. Thyroid: The left lobe of the thyroid is enlarged Soft tissues: Unremarkable. IMPRESSION: 1. No acute fracture of the cervical spine. 2. No subluxation or dislocation of the cervical spine. 3. Intervertebral disc space narrowing C4 through C6 may represent degenerative disc disease..
[2024-08-10 12:52] LABS: Alanine Aminotransferase 27 U/L (12-78); Albumin/Globulin Ratio 1.2 (1.1-1.8); Alkaline Phosphatase 85 U/L (38-126); Anion Gap 3.3 mEq/L (5-15); Aspartate Amino Transferase 39 U/L (14-36); Bilirubin,Total 0.6 mg/dl (0.2-1.3); Blood Urea Nitrogen 16 mg/dl (7-17); Calcium 8.8 mg/dl (8.4-10.2); Carbon Dioxide 31 mmol/L (22.0-30.0); Creatinine Clearance Estimated 50 mL/min (50-200); Estimated Glomerular Filt Rate 54 ml/min (>60); GFR (African American) 65 ML/MIN (>60); Globulin 2.9 g/dL (1.3-3.2); Glucose 63 mg/dl (74-100); Total Protein,Serum 6.3 g/dl (6.3-8.2)
[2024-08-10 13:11] LABS: Microscopic, Urine URINE MICROSCOPIC (MICROSCOPIC)
--- NOTE | 2024-08-10 13:22 | PC.NURSE ---
fsbs 148
[2024-08-10 13:34] LABS: Basophils % 0.1 % (0.1-2.0); Eosinophils % 0.1 % (0.1-12.0); Hematocrit 39.1 % (37.0-47.0); Hemoglobin 13.4 g/dL (12.2-16.2); Lymphocytes % 9.6 % (10-50); Mean Corpuscular HGB Conc 34.3 g/dL (31.8-35.4); Mean Corpuscular Hemoglobin 31.8 pg (27.0-31.2); Mean Corpuscular Volume 92.9 fl (81-99); Mean Platelet Volume 8.9 fl (7.4-10.4); Monocytes % 4.8 % (1.7-9.3); Neutrophils % 85.1 % (37.0-80.0); Platelet Count 273 K/mm3 (142-424); Red Blood Count 4.21 M/mm3 (4.20-5.40); Red Cell Distribution Width 15.8 % (11.5-17.5); White Blood Count 14.1 K/mm3 (4.8-10.8)
[2024-08-10 13:35] LABS: Lymphocytes # 1.4 K/mm3 (0.7-4.5); MANUAL DIFFERENTIAL MANUAL DIFFERENTIAL (MANUAL DIFF); Monocytes # 0.7 K/mm3 (0.1-1.0)
[2024-08-10 14:02] LABS: Appearance,Urine CLEAR (Clear); Bilirubin,Urine Negative (Negative); Blood, Urine Negative (Negative); Color,Urine YELLOW (Yellow); Glucose,Urine (UA) 2+ (Negative); Ketones,Urine Negative (Negative); Leukocyte Esterase,Urine TRACE (Negative); Nitrate,Urine Negative (Negative); Protein,Urine Negative (Negative); Urobilinogen,Urine 0.2 EU/dl (0.2)
[2024-08-10 14:41] LABS: HIV Combo NEGATIVE (Negative)
--- NOTE | 2024-08-10 14:53 | [facility].PHAINT1 ---
Pharmacy Intervention Comments: MEDICATION RECONCILIATION COMPLETED ON PATIENT USING EXTERNAL FILL HISTORY FROM PHARMACY AND LIST FROM CARDIOLOGY OFFICE. -LALY VILLALOBOS, JAMEELD
--- NOTE | 2024-08-10 15:05 | PC.NURSE ---
spoke with house regarding bed
--- NOTE | 2024-08-10 15:16 | PC.NURSE ---
Patient given food tray.
--- NOTE | 2024-08-10 15:32 | PC.NURSE ---
report called to Kristy
[2024-08-10 15:44] LABS: Lymphocytes % 5 % (10-50); Monocytes % 3 % (2-9); Neutrophils % 88 % (42-76); Platelet Estimate Normal; RBC Morphology Normal; Total Cells Counted 100
--- NOTE | 2024-08-10 16:02 | PC.NURSE ---
arrived by w/c from ED
[2024-08-10 16:09] LABS: Hemoglobin A1C 5.9 % (4.0-6.0)
[2024-08-10 17:56] LABS: POC Glucose,Bedside 127 (70-110)
--- NOTE | 2024-08-10 18:33 | P.HP_ITS ---
History of Present Illness *Admission Date: 08/10/24 *Reason for visit:: Hypoglycemia *History of present illness: Henny Mckinnon is a 79 year old female with a medical history significant for type 2 diabetes, peripheral neuropathy, CAD, hypertension who presents with symptomatic hypoglycemia. She states over the past 3 to 4 days she has been feeling more weak, and has had episodes of diaphoresis which is usually a telltale sign for her that her sugars are low. However, she has not been checking her sugars. She takes Lantus 60 units nightly, glipizide 2.5 mg. EMS found her blood sugars to be in the 40s, and on arrival her blood sugars were in the 60s which improved with D50 amp. Case discussed with ED provider and decision was made to admit patient for symptomatic hypoglycemic episodes in the setting of long-acting insulin and glipizide. [facility] Disclaimer: The information contained in this section may have been updated after the patient was seen, as this information can be updated by other users. Medical History , CLAIM ATTORNEY) Hypertension HLD (hyperlipidemia) HHD (hypertensive heart disease) Surgical History , CLAIM ATTORNEY) S/P CABG (coronary artery bypass graft) Social History , CLAIM ATTORNEY) Smoking Status: Never smoker second hand exposure: No alcohol intake: current alcohol intake frequency: holidays/special occasions only substance use type: denies use current occupational status: retired Travel in the last 8 weeks: None household members: spouse housing: house current occupational exposures/hazards: No caffeine: Yes Have you lived/traveled outside [place] in past 30 days?: No Contact w/someone who lives/traveled outside [place] past 30 days?: No Exposure to someone with infectious disease in past 14 days?: No Do you have a fever (greater than 100.4 F or 38 C)?: No Have you tested positive for COVID-19: No Exposed to someone with COVID-19 in past 14 days?: No Do you have a sore throat?: No Do you have a cough?: No Do you have any weakness?: No Do you have any diarrhea?: No Are you experiencing any unusual bleeding?: No Do you have any muscle aches/pain?: No Do you have any abdominal pain?: No Are you experiencing loss of taste or smell?: No Other Medical History Have you received the Flu Vaccine for this season: Yes Have you received the Pneumonia Vaccine: No Meds Home Medications and Allergies Home Medications ?Medication ?Instructions ?Recorded ?Confirmed ?Type aspirin 81 mg tablet,delayed 81 mg PO DAILY 12/03/19 08/10/24 History release insulin glargine 100 unit/mL (3 65 unit SQ HS 03/12/24 08/10/24 History mL) subcutaneous pen gabapentin 300 mg capsule 300 mg PO BID #60 caps 04/11/24 08/10/24 Rx losartan 50 mg-hydrochlorothiazide 1 tab PO DAILY #90 tabs 08/05/24 08/10/24 Rx 12.5 mg tablet atorvastatin 80 mg tablet 80 mg PO HS 08/10/24 08/10/24 History clopidogrel 75 mg tablet 75 mg PO DAILY 08/10/24 08/10/24 History glipizide 2.5 mg tablet, extended 2.5 mg PO DAILY 08/10/24 08/10/24 History release 24 hr metoprolol succinate 50 mg 50 mg PO DAILY 08/10/24 08/10/24 History tablet,extended release 24 hr New Prescriptions to Start Prescriptions: Allergies Allergy/AdvReac Type Severity Reaction Status Date / Time rivaroxaban (From Xarelto) Allergy Intermediate swelling Verified 06/25/24 09:31 of lower ext. Exam Data for Last 24 hours Vital signs and Labs for Last 24 Hours: Temp Pulse Resp BP Pulse Ox O2 Del Method 98.7 F 72 20 174/77 H 98 Room Air 08/10/24 16:00 08/10/24 16:00 08/10/24 16:00 08/10/24 16:00 08/10/24 16:00 08/10/24 17:00 Laboratory Results - last 24 hr 08/10/24 11:53: Influenza Type A Ag Negative, Influenza Type B Ag Negative 08/10/24 12:30: WBC 14.1 H, RBC 4.21, Hgb 13.4, Hct 39.1, MCV 92.9, MCH 31.8 H, MCHC 34.3, RDW 15.8, Plt Count 273, MPV 8.9, Neut % (Auto) 85.1 H, Lymph % (Auto) 9.6 L, [place] % (Auto) 4.8, Eos % (Auto) 0.1, Baso % (Auto) 0.1, Neut # (Auto) 12.0 H, Lymph # (Auto) 1.4, [place] # (Auto) 0.7, Eos # (Auto) 0.0, Baso # (Auto) 0.0, Total Counted 100, Neutrophils % (Manual) 88 H, Band Neutrophils % 1.0, Lymphocytes % (Manual) 5 L, Atypical Lymphs % 3.0, Monocytes % (Manual) 3, Platelet Estimate Normal, RBC Morphology Normal, Sodium 137, Potassium 4.3, Chloride 107, Carbon Dioxide 31 H, Anion Gap 3.3 L, BUN 16, Creatinine 1.00, Estimated Creat Clear 50, Estimated GFR 54 L, Est GFR ( Amer) 65, Glucose 63 L, Hemoglobin A1c 5.9, Calcium 8.8, Total Bilirubin 0.6, AST 39 H, ALT 27, Alkaline Phosphatase 85, Total Protein 6.3, Albumin 3.4 L, Globulin 2.9, Albumin/Globulin Ratio 1.2, Chlamy pneumoniae PCR Not detected, Adenovirus (PCR) Not detected, B. pertussis DNA (PCR) Not detected, Coronavirus OC43 (PCR) Not detected, Coronavirus HKU1 (PCR) Not detected, Coronavirus 229E (PCR) Not dete cted, SARS-CoV-2 (PCR) Not detected, Coronavirus NL63 (PCR) Not detected, HIV Ag/Ab Combo Qual Negative, Human Metapneumovir PCR Not detected, Influenza A (H1) PCR Not detected, Influ A (H1N1/09) PCR Not detected, Influenza A (H3) PCR Not detected, Influenza Type A (PCR) Not detected, Influenza Type B (PCR) Not detected, M. pneumoniae (PCR) Not detected, Parainfluenza 1 (PCR) Not detected, Parainfluenza 2 (PCR) Not detected, Parainfluenza 3 (PCR) Not detected, Parainfluenza 4 (PCR) Not detected, RSV (PCR) Not detected, Entero/Rhino (PCR) Not detected 08/10/24 12:40: Urine Color Yellow, Urine Appearance Clear, Urine pH 6.0, Ur Specific [place] 1.020, Urine Protein Negative, Urine Glucose (UA) 2+, Urine Ketones Negative, Urine Blood Negative, Urine Nitrate Negative, Urine Bilirubin Negative, Urine Urobilinogen 0.2, Ur Leukocyte Esterase Trace, Urine RBC None, Urine WBC 3-5, Ur Squamous Epith Cells 3-5, Urine Bacteria None 08/10/24 16:42: POC Glucose 127 H I & O for Last 24 hours: Intake & Output 08/07/24 08/08/24 08/09/24 08/10/24 23:59 23:59 23:59 23:59 Weight 58.967 kg Constitutional Constitutional: no acute distress *Routine HEENT Exam Head: Present normocephalic Eye: Present EOMI and PERRL ENT: Present mucous membranes moist *Routine Neck Exam Neck: Present supple; Absent lymphadenopathy *Routine Respiratory Exam Respiratory: Present CTA bilaterally *Routine Cardiovascular Exam Cardiovascular: Present RRR *Routine Abdominal Exam Abdominal: Present soft and normoactive bowel sounds; Absent tenderness *Routine Rectal Exam Rectal:: deferred *Routine Genitalia Exam Genitalia:: deferred *Routine Extremities Exam Extremities: Absent cyanosis, clubbing or edema *Routine Skin Exam Skin: Present warm; Absent rash *Routine Neurological Exam Neurological: Present alert and oriented X3 Assessment and Plan *Assessment and plan (1) Hypoglycemia: Status: Acute Category: Medical Code(s): E16.2 - Hypoglycemia, unspecified Plan Henny Mckinnon is a 79 year old female with a medical history significant for type 2 diabetes, peripheral neuropathy, CAD, hypertension who presents with symptomatic hypoglycemia. She states over the past 3 to 4 days she has been feeling more weak, and has had episodes of diaphoresis which is usually a telltale sign for her that her sugars are low. However, she has not been checking her sugars. She takes Lantus 60 units nightly, glipizide 2.5 mg. EMS found her blood sugars to be in the 40s, and on arrival her blood sugars were in the 60s which improved with D50 amp. Case discussed with ED provider and decision was made to admit patient for symptomatic hypoglycemic episodes in the setting of long-acting insulin and glipizide. #Symptomatic hypoglycemia #Type 2 diabetes - Blood sugar in 40s at home when EMS arrived. - Has been weaker, diaphoretic at home for the past 3 days. - Blood sugars 60s on arrival, given D50 amp with improvement in the 120s. - Takes Lantus 60u and glipize 2.5 mg at home. Does not check sugars. - Sugars have been stable during admission so far. - WBC slightly high at 14, but workup so far does not indicate infectious. - Follow-up CXR and blood cultures. ? Every 1 hour glucose checks for the next 4 hours. Then ACHS. - Plan to discontinue glipize and likely insulin as patient's a1c is 6.7. Will instead start metformin if patient is able to tolerate it. ? Continue gabapentin 300 mg twice daily. #CAD with history of CABG ? Follows close with cardiology. ? Resume home aspirin, Plavix. #Hypertension ? Resume home medications once reconciled. Full code DVT prophylaxis: Lovenox 40 mg
[2024-08-10 19:06] LABS: POC Glucose,Bedside 122 (70-110)
[2024-08-10 20:30] LABS: POC Glucose,Bedside 59 (70-110)
[2024-08-10 20:49] LABS: POC Glucose,Bedside 70 (70-110)
--- NOTE | 2024-08-10 21:46 | XR_ITS ---
PROCEDURE INFORMATION: Exam: XR Chest Exam date and time: 08/10/2024 10:27 PM Age: 79 years old Clinical indication: Other: Leukocytosis TECHNIQUE: Imaging protocol: Radiologic exam of the chest. Views: 1 view. COMPARISON: CR XR CHEST 2V 07/03/2023 11:49 AM FINDINGS: Lungs: Unremarkable. No consolidation. Pleural spaces: Unremarkable. No pleural effusion. No pneumothorax. Heart/Mediastinum: Left hilar surgical clips. The aorta is calcified and tortuous. No cardiomegaly. Bones/joints: Sternal wires. IMPRESSION: No acute findings.
[2024-08-10 23:45] LABS: POC Glucose,Bedside 69 (70-110)
[2024-08-11 00:06] LABS: POC Glucose,Bedside 71 (70-110)
[2024-08-11 04:00] VITALS: BP 144/65; PULSE 73; RESP 16; TEMP 36.6; O2SAT 98; BMI 23.9
--- NOTE | 2024-08-11 05:24 | PC.NURSE ---
Patient alert and oriented x4 this shift. Tolerating room air well. Patient has had a few low FSBS tonight. Gave patient OJ and peanut butter/crackers and it brought patients glucose up quickly. Hospitalist aware of low blood sugars. Alarm mat in place for patient safety due to bed not having an alarm. Call light within reach.
[2024-08-11 05:56] LABS: POC Glucose,Bedside 86 (70-110)
[2024-08-11 07:47] VITALS: BP 158/75; PULSE 90; RESP 20; TEMP 37; O2SAT 99
[2024-08-11 08:24] LABS: Albumin Level 3.2 g/dl (3.5-5.0); Chloride 107 mmol/L (98-107); Potassium 4.2 mmoL/L (3.5-5.1); Sodium 136 mmol/L (136-145)
[2024-08-11 08:26] LABS: Blood Urea Nitrogen 16 mg/dl (7-17); Creatinine Clearance Estimated 44 mL/min (50-200); Estimated Glomerular Filt Rate 54 ml/min (>60); GFR (African American) 65 ML/MIN (>60)
[2024-08-11 08:27] LABS: Alanine Aminotransferase 26 U/L (12-78); Albumin/Globulin Ratio 1.2 (1.1-1.8); Alkaline Phosphatase 75 U/L (38-126); Anion Gap 2.2 mEq/L (5-15); Aspartate Amino Transferase 37 U/L (14-36); Bilirubin,Total 0.5 mg/dl (0.2-1.3); Calcium 8.5 mg/dl (8.4-10.2); Carbon Dioxide 31 mmol/L (22.0-30.0); Chol/HDL Ratio 2.6 (1-3.5); Cholesterol 111 mg/dl (140-200); Globulin 2.6 g/dL (1.3-3.2); Glucose 77 mg/dl (74-100); HDL Cholesterol 43 mg/dl (40-60); Magnesium 1.9 mg/dl (1.6-2.3); Total Protein,Serum 5.8 g/dl (6.3-8.2); Triglycerides 119 mg/dl (30-150); VLDL Cholesterol 24 mg/dL (0-40)
[2024-08-11 08:38] LABS: Direct LDL Cholesterol 43.38 mg/dL (100-129)
[2024-08-11 08:48] LABS: Hematocrit 36.4 % (37.0-47.0); Mean Corpuscular Volume 94.1 fl (81-99); Red Blood Count 3.87 M/mm3 (4.20-5.40); Red Cell Distribution Width 16.1 % (11.5-17.5); White Blood Count 11.4 K/mm3 (4.8-10.8)
[2024-08-11 08:49] LABS: Basophils # 0.1 K/mm3 (0-0.2); Basophils % 0.4 % (0.1-2.0); Eosinophils # 0.2 K/mm3 (0.0-0.4); Eosinophils % 1.9 % (0.1-12.0); Lymphocytes # 2.9 K/mm3 (0.7-4.5); Lymphocytes % 25.2 % (10-50); Mean Platelet Volume 9.2 fl (7.4-10.4); Monocytes # 0.6 K/mm3 (0.1-1.0); Monocytes % 5.3 % (1.7-9.3); Neutrophils # 7.6 K/mm3 (1.8-7.8); Neutrophils % 66.9 % (37.0-80.0); Platelet Count 261 K/mm3 (142-424)
[2024-08-11] MEDS: ENOXAPARIN 40MG/0.4ML SYRINGE 40 MG SUBCUT (09:01)
[2024-08-11] MEDS: MAGNESIUM SULFATE IN WATER 2 GM/50 ML PIGGYBACK IV (10:11)
[2024-08-11 10:30] LABS: POC Glucose,Bedside 77 (70-110)
--- NOTE | 2024-08-11 10:34 | PC.NURSE ---
pt was positioned in the bed for comfort. Call light is within reach
[2024-08-11 11:16] LABS: POC Glucose,Bedside 106 (70-110)
[2024-08-11] MEDS: ASPIRIN EC 81MG TABLET 81 MG PO (13:07)
[2024-08-11] MEDS: hydroCHLOROthiazide 12.5MG CAPSULE 12.5 MG PO (13:07)
[2024-08-11] MEDS: METOPROLOL SUCCINATE 50 MG PO (13:07)
[2024-08-11] MEDS: *PAT OWN MED* CLOPIDOGREL 75MG TAB 75 MG PO (13:07)
[2024-08-11] MEDS: IRBESARTAN 75MG TABLET 75 MG PO (13:07)
--- NOTE | 2024-08-11 13:27 | EXP.DC.SUM ---
General Admission date:: 08/10/24 HPI HPI HPI: Henny Mckinnon is a 79 year old female with a medical history significant for type 2 diabetes, peripheral neuropathy, CAD, hypertension who presents with symptomatic hypoglycemia. She states over the past 3 to 4 days she has been feeling more weak, and has had episodes of diaphoresis which is usually a telltale sign for her that her sugars are low. However, she has not been checking her sugars. She takes Lantus 60 units nightly, glipizide 2.5 mg. EMS found her blood sugars to be in the 40s, and on arrival her blood sugars were in the 60s which improved with D50 amp. Case discussed with ED provider and decision was made to admit patient for symptomatic hypoglycemic episodes in the setting of long-acting insulin and glipizide. Hospital Course Hospital Course Hospital Course: Henny Mckinnon is a 79 year old female with a medical history significant for type 2 diabetes, peripheral neuropathy, CAD, hypertension who presents with symptomatic hypoglycemia. She states over the past 3 to 4 days she has been feeling more weak, and has had episodes of diaphoresis which is usually a telltale sign for her that her sugars are low. However, she has not been checking her sugars. She takes Lantus 60 units nightly, glipizide 2.5 mg. EMS found her blood sugars to be in the 40s, and on arrival her blood sugars were in the 60s which improved with D50 amp. Case discussed with ED provider and decision was made to admit patient for symptomatic hypoglycemic episodes in the setting of long-acting insulin and glipizide. #Symptomatic hypoglycemia #Type 2 diabetes #Peripheral neuropathy - Blood sugar in 40s at home when EMS arrived. Had been weaker, diaphoretic at home for the past 3 days. - Blood sugars 60s on arrival, given D50 amp with improvement in the 120s. ? Hemoglobin A1c 5.9% during admission. - Takes Lantus 60u and glipize 2.5 mg at home. Does not check sugars. - Patient did have a few low sugars in the 60s and 70s during hospitalization, but had great response to orange juice and crackers. This is to be expected as SQ insulin has about a 48-hour washout time. - Initial leukocytosis of 14 was likely reactive in the setting of hypoglycemia, and is self resolving. Infectious workup was completely unremarkable, including blood cultures and CXR. - Discontinued home Lantus and glipizide given the risk of hypoglycemia with these 2 medications, normal A1c, and advanced age. I believe at this time patient's diabetes can be diet controlled, and was provided extensive counseling. ? Patient will follow-up with PCP tomorrow, and they already have an appointment. Advised patient to keep a blood sugar log over the next week and let PCP know. ? Continue gabapentin 300 mg twice daily. #CAD with history of CABG ? Follows close with cardiology. ? Resume home aspirin, Plavix, statin, beta-gabby. #Hypertension ? Resume home metoprolol, losartan, hydrochlorothiazide. #History of shingles ? Patient has erythema/hyperemia on the right side of her forehead from her recent shingles outbreak. No active infection noted. Exam Data for Last 24 hours Vital signs and Labs for Last 24 Hours: Temp Pulse Resp BP Pulse Ox O2 Del Method 98.6 F 90 20 158/75 H 99 Room Air 08/11/24 07:47 08/11/24 07:47 08/11/24 07:47 08/11/24 07:47 08/11/24 07:47 08/11/24 13:00 Laboratory Results - last 24 hr 08/10/24 12:30: WBC 14.1 H, RBC 4.21, Hgb 13.4, Hct 39.1, MCV 92.9, MCH 31.8 H, MCHC 34.3, RDW 15.8, Plt Count 273, MPV 8.9, Neut % (Auto) 85.1 H, Lymph % (Auto) 9.6 L, [place] % (Auto) 4.8, Eos % (Auto) 0.1, Baso % (Auto) 0.1, Neut # (Auto) 12.0 H, Lymph # (Auto) 1.4, [place] # (Auto) 0.7, Eos # (Auto) 0.0, Baso # (Auto) 0.0, Total Counted 100, Neutrophils % (Manual) 88 H, Band Neutrophils % 1.0, Lymphocytes % (Manual) 5 L, Atypical Lymphs % 3.0, Monocytes % (Manual) 3, Platelet Estimate Normal, RBC Morphology Normal, Hemoglobin A1c 5.9, Chlamy pneumoniae PCR Not detected, Adenovirus (PCR) Not detected, B. pertussis DNA (PCR) Not detected, Coronavirus OC43 (PCR) Not detected, Coronavirus HKU1 (PCR) Not detected, Coronavirus 229E (PCR) Not detected, SARS-CoV-2 (PCR) Not detected, Coronavirus NL63 (PCR) Not detected, HIV Ag/Ab Combo Qual Negative, Human Metapneumovir PCR Not detected, Influenza A (H1) PCR Not detected, Influ A (H1N1/09) PCR Not detected, Influenza A (H3) PCR Not detected, Influenza Type A (PCR) Not detected, Influenza Type B (PCR) Not detected, M. pneumoniae (PCR) Not detected, Parainfluenza 1 (PCR) Not detected, Parainfluenza 2 (PCR) Not detected, Parainfluenza 3 (PCR) Not detected, Parainfluenza 4 (PCR) Not detected, RSV (PCR) Not detected, Entero/Rhino (PCR) Not detected 08/10/24 12:40: Urine Color Yellow, Urine Appearance Clear, Urine pH 6.0, Ur Specific [place] 1.020, Urine Protein Negative, Urine Glucose (UA) 2+, Urine Ketones Negative, Urine Blood Negative, Urine Nitrate Negative, Urine Bilirubin Negative, Urine Urobilinogen 0.2, Ur Leukocyte Esterase Trace, Urine RBC None, Urine WBC 3-5, Ur Squamous Epith Cells 3-5, Urine Bacteria None 08/10/24 16:42: POC Glucose 127 H 08/10/24 18:44: POC Glucose 122 H 08/10/24 20:23: POC Glucose 59 L 08/10/24 20:42: POC Glucose 70 08/10/24 23:38: POC Glucose 69 L 08/10/24 23:57: POC Glucose 71 08/11/24 05:49: POC Glucose 86 08/11/24 07:50: WBC 11.4 H, RBC 3.87 L, Hgb 12.0 L D, Hct 36.4 L, MCV 94.1, MCH 31.0, MCHC 33.0, RDW 16.1, Plt Count 261, MPV 9.2, Neut % (Auto) 66.9, Lymph % (Auto) 25.2, [place] % (Auto) 5.3, Eos % (Auto) 1.9, Baso % (Auto) 0.4, Neut # (Auto) 7.6, Lymph # (Auto) 2.9, [place] # (Auto) 0.6, Eos # (Auto) 0.2, Baso # (Auto) 0.1, Sodium 136, Potassium 4.2, Chloride 107, Carbon Dioxide 31 H, Anion Gap 2.2 L, BUN 16, Creatinine 1.00, Estimated Creat Clear 44, Estimated GFR 54 L, Est GFR ( Amer) 65, Glucose 77 D, Calcium 8.5, Magnesium 1.9, Total Bilirubin 0.5, AST 37 H, ALT 26, Alkaline Phosphatase 75, Total Protein 5.8 L, Albumin 3.2 L, Globulin 2.6, Albumin/Globulin Ratio 1.2, Triglycerides 119, Cholesterol 111 L, LDL Cholesterol Direct 43.38 L, VLDL Cholesterol 24, HDL Cholesterol 43, Cholesterol/HDL Ratio 2.6 08/11/24 10:23: POC Glucose 77 08/11/24 11:08: POC Glucose 106 I & O for Last 24 hours: Intake & Output 08/08/24 08/09/24 08/10/24 08/11/24 23:59 23:59 23:59 23:59 Intake Total 200 / 200 120 / 120 Output Total 0 / 0 0 / 0 Balance 200 / 200 120 / 120 Weight 58.967 kg 58.967 kg Constitutional Constitutional: no acute distress Comments: Erythema from history of shingles on the right side of her face. *Routine HEENT Exam Head: Present normocephalic Eye: Present EOMI and PERRL ENT: Present mucous membranes moist *Routine Neck Exam Neck: Present supple; Absent lymphadenopathy *Routine Respiratory Exam Respiratory: Present CTA bilaterally *Routine Cardiovascular Exam Cardiovascular: Present RRR *Routine Abdominal Exam Abdominal: Present soft and normoactive bowel sounds; Absent tenderness *Routine Extremities Exam Extremities: Absent cyanosis, clubbing or edema *Routine Skin Exam Skin: Present warm; Absent rash *Routine Neurological Exam Neurological: Present alert and oriented X3 Results Data Completed and Pending Labs on day of discharge: Labs from last 24 hours 08/11/24 08/11/24 08/11/24 11:08 10:23 07:50 WBC 11.4 H RBC 3.87 L Hgb 12.0 L D Hct 36.4 L MCV 94.1 MCH 31.0 MCHC 33.0 RDW 16.1 Plt Count 261 MPV 9.2 Neut % (Auto) 66.9 Lymph % (Auto) 25.2 [place] % (Auto) 5.3 Eos % (Auto) 1.9 Baso % (Auto) 0.4 Neut # (Auto) 7.6 Lymph # (Auto) 2.9 [place] # (Auto) 0.6 Eos # (Auto) 0.2 Baso # (Auto) 0.1 Total Counted Neutrophils % (Manual) Band Neutrophils % Lymphocytes % (Manual) Atypical Lymphs % Monocytes % (Manual) Platelet Estimate RBC Morphology Sodium 136 Potassium 4.2 Chloride 107 Carbon Dioxide 31 H Anion Gap 2.2 L BUN 16 Creatinine 1.00 Estimated Creat Clear 44 Estimated GFR 54 L Est GFR ( Amer) 65 Glucose 77 D POC Glucose 106 77 Hemoglobin A1c Calcium 8.5 Magnesium 1.9 Total Bilirubin 0.5 AST 37 H ALT 26 Alkaline Phosphatase 75 Total Protein 5.8 L Albumin 3.2 L Globulin 2.6 Albumin/Globulin Ratio 1.2 Triglycerides 119 Cholesterol 111 L LDL Cholesterol Direct 43.38 L VLDL Cholesterol 24 HDL Cholesterol 43 Cholesterol/HDL Ratio 2.6 Urine Color Urine Appearance Urine pH Ur Specific [place] Urine Protein Urine Glucose (UA) Urine Ketones Urine Blood Urine Nitrate Urine Bilirubin Urine Urobilinogen Ur Leukocyte Esterase Urine RBC Urine WBC Ur Squamous Epith Cells Urine Bacteria Chlamy pneumoniae PCR Adenovirus (PCR) B. pertussis DNA (PCR) Coronavirus OC43 (PCR) Coronavirus HKU1 (PCR) Coronavirus 229E (PCR) SARS-CoV-2 (PCR) Coronavirus NL63 (PCR) HIV Ag/Ab Combo Qual Human Metapneumovir PCR Influenza A (H1) PCR Influ A (H1N1/09) PCR Influenza A (H3) PCR Influenza Type A (PCR) Influenza Type B (PCR) M. pneumoniae (PCR) Parainfluenza 1 (PCR) Parainfluenza 2 (PCR) Parainfluenza 3 (PCR) Parainfluenza 4 (PCR) RSV (PCR) Entero/Rhino (PCR) 08/11/24 08/10/24 08/10/24 05:49 23:57 23:38 WBC RBC Hgb Hct MCV MCH MCHC RDW Plt Count MPV Neut % (Auto) Lymph % (Auto) [place] % (Auto) Eos % (Auto) Baso % (Auto) Neut # (Auto) Lymph # (Auto) [place] # (Auto) Eos # (Auto) Baso # (Auto) Total Counted Neutrophils % (Manual) Band Neutrophils % Lymphocytes % (Manual) Atypical Lymphs % Monocytes % (Manual) Platelet Estimate RBC Morphology Sodium Potassium Chloride Carbon Dioxide Anion Gap BUN Creatinine Estimated Creat Clear Estimated GFR Est GFR ( Amer) Glucose POC Glucose 86 71 69 L Hemoglobin A1c Calcium Magnesium Total Bilirubin AST ALT Alkaline Phosphatase Total Protein Albumin Globulin Albumin/Globulin Ratio Triglycerides Cholesterol LDL Cholesterol Direct VLDL Cholesterol HDL Cholesterol Cholesterol/HDL Ratio Urine Color Urine Appearance Urine pH Ur Specific [place] Urine Protein Urine Glucose (UA) Urine Ketones Urine Blood Urine Nitrate Urine Bilirubin Urine Urobilinogen Ur Leukocyte Esterase Urine RBC Urine WBC Ur Squamous Epith Cells Urine Bacteria Chlamy pneumoniae PCR Adenovirus (PCR) B. pertussis DNA (PCR) Coronavirus OC43 (PCR) Coronavirus HKU1 (PCR) Coronavirus 229E (PCR) SARS-CoV-2 (PCR) Coronavirus NL63 (PCR) HIV Ag/Ab Combo Qual Human Metapneumovir PCR Influenza A (H1) PCR Influ A (H1N1/) PCR Influenza A (H3) PCR Influenza Type A (PCR) Influenza Type B (PCR) M. pneumoniae (PCR) Parainfluenza 1 (PCR) Parainfluenza 2 (PCR) Parainfluenza 3 (PCR) Parainfluenza 4 (PCR) RSV (PCR) Entero/Rhino (PCR) 08/10/24 08/10/24 08/10/24 20:42 20:23 18:44 WBC RBC Hgb Hct MCV MCH MCHC RDW Plt Count MPV Neut % (Auto) Lymph % (Auto) [place] % (Auto) Eos % (Auto) Baso % (Auto) Neut # (Auto) Lymph # (Auto) [place] # (Auto) Eos # (Auto) Baso # (Auto) Total Counted Neutrophils % (Manual) Band Neutrophils % Lymphocytes % (Manual) Atypical Lymphs % Monocytes % (Manual) Platelet Estimate RBC Morphology Sodium Potassium Chloride Carbon Dioxide Anion Gap BUN Creatinine Estimated Creat Clear Estimated GFR Est GFR ( Amer) Glucose POC Glucose 70 59 L 122 H Hemoglobin A1c Calcium Magnesium Total Bilirubin AST ALT Alkaline Phosphatase Total Protein Albumin Globulin Albumin/Globulin Ratio Triglycerides Cholesterol LDL Cholesterol Direct VLDL Cholesterol HDL Cholesterol Cholesterol/HDL Ratio Urine Color Urine Appearance Urine pH Ur Specific [place] Urine Protein Urine Glucose (UA) Urine Ketones Urine Blood Urine Nitrate Urine Bilirubin Urine Urobilinogen Ur Leukocyte Esterase Urine RBC Urine WBC Ur Squamous Epith Cells Urine Bacteria Chlamy pneumoniae PCR Adenovirus (PCR) B. pertussis DNA (PCR) Coronavirus OC43 (PCR) Coronavirus HKU1 (PCR) Coronavirus 229E (PCR) SARS-CoV-2 (PCR) Coronavirus NL63 (PCR) HIV Ag/Ab Combo Qual Human Metapneumovir PCR Influenza A (H1) PCR Influ A (H1N1/) PCR Influenza A (H3) PCR Influenza Type A (PCR) Influenza Type B (PCR) M. pneumoniae (PCR) Parainfluenza 1 (PCR) Parainfluenza 2 (PCR) Parainfluenza 3 (PCR) Parainfluenza 4 (PCR) RSV (PCR) Entero/Rhino (PCR) 08/10/24 08/10/24 08/10/24 16:42 12:40 12:30 WBC 14.1 H RBC 4.21 Hgb 13.4 Hct 39.1 MCV 92.9 MCH 31.8 H MCHC 34.3 RDW 15.8 Plt Count 273 MPV 8.9 Neut % (Auto) 85.1 H Lymph % (Auto) 9.6 L [place] % (Auto) 4.8 Eos % (Auto) 0.1 Baso % (Auto) 0.1 Neut # (Auto) 12.0 H Lymph # (Auto) 1.4 [place] # (Auto) 0.7 Eos # (Auto) 0.0 Baso # (Auto) 0.0 Total Counted 100 Neutrophils % (Manual) 88 H Band Neutrophils % 1.0 Lymphocytes % (Manual) 5 L Atypical Lymphs % 3.0 Monocytes % (Manual) 3 Platelet Estimate Normal RBC Morphology Normal Sodium Potassium Chloride Carbon Dioxide Anion Gap BUN Creatinine Estimated Creat Clear Estimated GFR Est GFR ( Amer) Glucose POC Glucose 127 H Hemoglobin A1c 5.9 Calcium Magnesium Total Bilirubin AST ALT Alkaline Phosphatase Total Protein Albumin Globulin Albumin/Globulin Ratio Triglycerides Cholesterol LDL Cholesterol Direct VLDL Cholesterol HDL Cholesterol Cholesterol/HDL Ratio Urine Color Yellow Urine Appearance Clear Urine pH 6.0 Ur Specific [place] 1.020 Urine Protein Negative Urine Glucose (UA) 2+ Urine Ketones Negative Urine Blood Negative Urine Nitrate Negative Urine Bilirubin Negative Urine Urobilinogen 0.2 Ur Leukocyte Esterase Trace Urine RBC None Urine WBC 3-5 Ur Squamous Epith Cells 3-5 Urine Bacteria None Chlamy pneumoniae PCR Not detected Adenovirus (PCR) Not detected B. pertussis DNA (PCR) Not detected Coronavirus OC43 (PCR) Not detected Coronavirus HKU1 (PCR) Not detected Coronavirus 229E (PCR) Not detected SARS-CoV-2 (PCR) Not detected Coronavirus NL63 (PCR) Not detected HIV Ag/Ab Combo Qual Negative Human Metapneumovir PCR Not detected Influenza A (H1) PCR Not detected Influ A (H1N1/09) PCR Not detected Influenza A (H3) PCR Not detected Influenza Type A (PCR) Not detected Influenza Type B (PCR) Not detected M. pneumoniae (PCR) Not detected Parainfluenza 1 (PCR) Not detected Parainfluenza 2 (PCR) Not detected Parainfluenza 3 (PCR) Not detected Parainfluenza 4 (PCR) Not detected RSV (PCR) Not detected Entero/Rhino (PCR) Not detected DS: Diagnosis Discharge Diagnosis (1) Hypoglycemia: Status: Acute Code(s): E16.2 - Hypoglycemia, unspecified Meds Home Medications and Allergies Home Medications ?Medication ?Instructions ?Recorded ?Confirmed ?Type aspirin 81 mg tablet,delayed 81 mg PO DAILY 12/03/19 08/10/24 History release gabapentin 300 mg capsule 300 mg PO BID #60 caps 04/11/24 08/10/24 Rx losartan 50 mg-hydrochlorothiazide 1 tab PO DAILY #90 tabs 08/05/24 08/10/24 Rx 12.5 mg tablet atorvastatin 80 mg tablet 80 mg PO HS 08/10/24 08/10/24 History clopidogrel 75 mg tablet 75 mg PO DAILY 08/10/24 08/10/24 History metoprolol succinate 50 mg 50 mg PO DAILY 08/10/24 08/10/24 History tablet,extended release 24 hr New Prescriptions to Start Prescriptions: Allergies Allergy/AdvReac Type Severity Reaction Status Date / Time rivaroxaban (From Xarelto) Allergy Intermediate swelling Verified 06/25/24 09:31 of lower ext. Discharge Plan Disposition Patient Disposition: Home, Self-Care Condition: Fair Follow up Plan Follow up with: Jhonatan Wolfe MD [Primary Care Provider] - 08/19/24 Prescriptions/Medication Reconciliation: Continued gabapentin 300 mg capsule 300 mg PO BID Qty: 60 2RF losartan-hydrochlorothiazide 50-12.5 mg tablet 1 tab PO DAILY Qty: 90 1RF aspirin 81 MG tablet,delayed release (DR/EC) 81 mg PO DAILY atorvastatin 80 mg tablet 80 mg PO HS metoprolol succinate 50 mg tablet extended release 24 hr 50 mg PO DAILY clopidogrel 75 mg tablet 75 mg PO DAILY Discontinued insulin glargine 100 unit/mL (3 mL) insulin pen 65 unit SQ HS glipizide 2.5 mg tablet extended release 24hr 2.5 mg PO DAILY Problem Reconciliation Problems Reviewed?: Yes Patient Discharge Instructions Additional Instructions: Your hemoglobin A1c is 5.9% which is very good. For this reason, you do not need glipizide and insulin at this time. The combination of these medications can make your blood sugars go too low. Keep a daily blood sugar log and take it to your PCPs office in about a week. Reduce your carbohydrate intake by about 30% to help manage your sugars. Patient Instructions: How to Check Your Blood Glucose, Hypoglycemia, Carbohydrate-Counting Diet Print Language: [place] Providers Primary Care Provider: Jhonatan Wolfe Admit Provider: Manuelito Sin Attending Provider: Manuelito Sin
[2024-08-11 14:11] LABS: POC Glucose,Bedside 172 (70-110)
[2024-08-11 16:00] VITALS: BP 149/53; PULSE 80; RESP 18; O2SAT 97
[2024-08-11 16:39] LABS: POC Glucose,Bedside 119 (70-110)
[2024-08-12 10:08] LABS: HCV Ab Non Reactive (Non Reactive)
[2024-08-12 14:24] LABS: C-Peptide 1.5 ng/mL (1.1-4.4); Insulin Level Total 5.1 uIU/mL (2.6-24.9)
--- NOTE | 2024-08-13 11:09 | SW/DCPLANNER ---
Spoke with patient on the phone. Patient stated that she is doing great. Patient stated that she is going to call and schedule a follow up appointment with her primary care provider. Patient stated that she is to continue her medication that she is on. Patient stated that she has no concerns or questions at this time. Keiko Jackson
== END 2024-08-11 16:50 | disposition home or self-care (01) ==
LOC: UTC 12:00 → ER 12:04 → 2ND 15:19
PROVIDERS: Nurse Practitioner; Nurse Practitioner Family; Admitting Provider Student in an Organized Health Care Education/Training Program; Emergency Provider Emergency Medicine; PCP Internal Medicine; Visit Provider Student in an Organized Health Care Education/Training Program
DX: E11.649 Type 2 diabetes mellitus with hypoglycemia without coma (principal); E11.42 Type 2 diabetes mellitus with diabetic polyneuropathy; I10 Essential (primary) hypertension; E78.5 Hyperlipidemia, unspecified; I25.10 Atherosclerotic heart disease of native coronary artery without angina pectoris; Z95.1 Presence of aortocoronary bypass graft; Z79.4 Long term (current) use of insulin; Z79.899 Other long term (current) drug therapy
CPT/HCPCS: 36415; 70450; 71045; 72125; 73030; 80053; 80061; 81001; 82962; 83036; 83525; 83735; 84681; 85007; 85025; 85027; 86803; 87040; 87389; 87633; 87804; 99285; G0378; J1650; J3475

== ENCOUNTER 2025-03-24 10:30 | Outpatient (CLI) | payer MEDICARE, SELFPAY ==
[2025-03-24 15:07] LABS: Hematocrit 36.1 % (37.0-47.0); Hemoglobin 12.1 g/dL (12.2-16.2); Immature Granulocytes % 0.1 %; Mean Corpuscular HGB Conc 33.5 g/dL (31.8-35.4); Mean Corpuscular Hemoglobin 29.5 pg (27.0-31.2); Mean Corpuscular Volume 88.0 fl (81-99); Nucleated Red Blood Cells % 0 %; Platelet Count 190 K/mm3 (142-424); Red Blood Count 4.10 M/mm3 (4.20-5.40); Red Cell Distribution Width-SD 43.9 fL; White Blood Count 7.1 K/mm3 (4.8-10.8)
[2025-03-24 15:44] LABS: Alanine Aminotransferase 16 U/L (12-78); Albumin Level 3.8 g/dl (3.5-5.0); Albumin/Globulin Ratio 1.7 (1.1-1.8); Alkaline Phosphatase 71 U/L (38-126); Anion Gap 10.8 mEq/L (5-15); Aspartate Amino Transferase 24 U/L (14-36); Bilirubin,Total 0.6 mg/dl (0.2-1.3); Blood Urea Nitrogen 15 mg/dl (7-17); Calcium 9.1 mg/dl (8.4-10.2); Carbon Dioxide 28 mmol/L (22.0-30.0); Chloride 103 mmol/L (98-107); Cholesterol 128 mg/dl (140-200); Creatinine,Serum 1.10 mg/dl (0.52-1.04); Estimated Glomerular Filt Rate 48 ml/min (>60); GFR (African American) 58 ML/MIN (>60); Globulin 2.3 g/dL (1.3-3.2); Glucose 188 mg/dl (74-100); HDL Cholesterol 40 mg/dl (40-60); Potassium 4.8 mmoL/L (3.5-5.1); Sodium 137 mmol/L (136-145); Total Protein,Serum 6.1 g/dl (6.3-8.2); Triglycerides 137 mg/dl (30-150)
[2025-03-24 16:01] LABS: Hemoglobin A1C 9.3 % (4.0-6.0)
--- OUTSIDE RECORDS SUMMARY | 2025-03-25 13:01 | XMS_ITS | Clinical Summary ---
Author Organization Healthcare Address [address] [place] [address] Care Team Providers Care Manager Convention Name Role Phone Jhonatan Wolfe MD Primary Care Provider [phone] Immunizations Immunization Administration Dates Next Due Pneumococcal Polysaccharide PPV23 12/10/2017 Family History Medical History Relation Name Comments Heart attack Brother Heart attack Father Liver cancer Mother Relation Name Status Comments Brother Father Mother Social History Tobacco Use Types Packs/Day Years Used Date Smoking Tobacco: Never Comments Unknown Sex and Gender Information Value Date Recorded Sex Assigned at Not on file Legal Sex Female 6:50 PM EDT Gender Identity Not on file Sexual Orientation Not on file Last Filed Vital Signs Vital Sign Reading Time Taken Comments Blood Pressure 160/79 02/12/2020 10:33 AM EDT Pulse 67 02/12/2020 10:33 AM EDT Temperature 36.4 C (97.5 F) 02/12/2020 10:33 AM EDT Respiratory Rate - - Oxygen Saturation - - Inhaled Oxygen Concentration - - Weight 63.5 kg (139 lb 15.9 oz) 020 10:33 AM EDT Height 157.5 cm (5' 2 ) 02/12/2020 10:3 3 AM EDT Body Mass Index 25.6 02/12/2020 10:33 AM EDT Plan of Treatment Not on file Care Teams Manager Convention Relationship Specialty Start Date End Date Jhonatan Wolfe MD [address] [place] [id number] PCP - General 01/01/21
== END 2025-03-24 23:59 | disposition home or self-care (01) ==
LOC: LAB.DROPOF 03-25 12:52
PROVIDERS: PCP Internal Medicine; Visit Provider Internal Medicine
DX: I10 Essential (primary) hypertension (principal); E11.59 Type 2 diabetes mellitus with other circulatory complications; E11.42 Type 2 diabetes mellitus with diabetic polyneuropathy; E78.2 Mixed hyperlipidemia
CPT/HCPCS: 80053; 80061; 83036; 85025